=== PATIENT | female | born 1945 | race Caucasian/White ===

== ENCOUNTER 2017-09-23 18:59 | Inpatient (IN) ==
[2017-09-23] MEDS ORDERED: Ipratropium/Albuterol Neb 3 ML ONE (19:03)
[2017-09-23 19:17] LABS: ABG Base Excess 4 mEq/L (-2 to 3); ABG HCO3 34 mEq/L (21-27); ABG Oxygen Saturation 88 % (95-98); ABG PCO2 70 mmHg (35-45); ABG PO2 62 mmHg (85-104); ABG TCO2 36 mEq/L (20-26)
[2017-09-23] MEDS ORDERED: methylPREDNISolone 125 MG/2 ML VIAL IVP ONE (19:17)
--- NOTE | 2017-09-23 19:29 | Emergency Department Note ---
Disposition Clinical Impression: Pulmonary nodule, Hypoxia, COPD exacerbation Right lower lobe pneumonia Qualifiers: Pneumonia type: due to unspecified organism Qualified Code(s): J18.1 - Lobar pneumonia, unspecified organism Disposition: Admitted As Inpatient Condition: Good General Adult HPI - General Chief complaint: ED Shortness of Breath/Dyspnea Stated complaint: shortness of breath and nausea Time Seen by Provider: 09/23/17 19:17 Source: patient, EMS Mode of arrival: EMS Limitations: no limitations Nursing Notes Reviewed: Yes Vital Signs Reviewed: Yes - History of Present Illness HPI Narrative: 71 y/o female w/ PMH of COPD, HTN, HLD. Reports ERNESTO over the last week. Also reports fatigue and cough. This all began with URI type symptoms. She does report a hx of COPD but does not require O2. She admits to a cough but no LE edema. She denies chest pain. No fever. No hx of DVT/PE. No hemoptysis. No estrogen supplementation. No abdominal pain. Complains of generalized fatigue. Worse with exertion. Pain Scale: 0 Improves with: nothing Worsens with: movement Associated symptoms: Reports: denies other symptoms Treatments Prior to Arrival: none - Related Data Home Medications Medication Instructions Recorded Confirmed Albuterol Sulfate [Albuterol 2 puff IH Q4H PRN 09/23/17 09/23/17 Inhaler] Aspirin 325 mg PO DAILY 09/23/17 09/23/17 Atorvastatin [Lipitor] 40 mg PO HS 09/23/17 09/23/17 Budesonide/Formoterol 160/4.5 2 puff IH BIDR 09/23/17 09/23/17 [Symbicort 160/4.5] Furosemide [Lasix] 20 mg PO DAILY 09/23/17 09/23/17 Levothyroxine Sodium 175 mcg PO QAM 09/23/17 09/23/17 Lisinopril [Zestril] 5 mg PO BID 09/23/17 09/23/17 Metoprolol [Lopressor] 25 mg PO BID 09/23/17 09/23/17 Allergies Allergy/AdvReac Type Severity Reaction Status Date / Time No Known Allergies Allergy Verified 09/23/17 19:12 All systems ED: reviewed and negative except as stated. Constitutional: Denies: fever ENT ED: Denies: throat pain Cardiovascular: Denies: chest pain Respiratory: Reports: cough, dyspnea Gastrointestinal: Denies: abdominal pain, nausea, vomiting, diarrhea Integumentary: Denies: rash Endocrine: Reports: fatigue Past Medical History - Past Medical History Medical history: Reports: COPD, myocardial infarction Psychiatric history: Reports: no psych history - Social History Smoking Status: Current every day smoker Smokeless Tobacco Status: No Alcohol use: Reports: none Drug use: Reports: none Physical Exam - General Limitations: no limitations General appearance: alert, in no apparent distress - Head Head exam: atraumatic - Eye Eye exam: Present: normal appearance, PERRL - ENT ENT exam: normal exam, normal oropharynx - Neck Neck exam: Present: normal inspection - Chest Chest inspection: Present: normal inspection - Respiratory Respiratory exam: Present: other (poor air movement with expiratory wheezes.). Absent: accessory muscle use - Cardiovascular Cardiovascular exam: Present: regular rate, normal rhythm - Abdominal Exam Abdominal exam: Present: soft, Non-Tender - Extremities Exam Extremities exam: Present: normal inspection - Neurological Exam Neurological exam: Present: alert, oriented X3 - Skin Skin exam: Present: warm, dry Course Course Narrative: She does not require O2 at home. Requiring 4L NC currently. Symptoms consistent with COPD exacerbation, however cannot exclude PE without CTA. Will give duonebs/steroids. She feels much better after steroids/duoneb. Pneumonia seen on CT scan. STarted abx and will admit. Hypoxia on room air but improves on nasal canula. Vital Signs Temperature 98.2 F 09/23/17 19:02 Pulse Rate 72 09/23/17 19:02 Respiratory Rate 20 09/23/17 19:02 Blood Pressure 121/67 09/23/17 19:02 O2 Sat by Pulse Oximetry 88 09/23/17 19:02 Temperature 98.8 F 09/24/17 04:00 Pulse Rate 89 09/24/17 04:00 Respiratory Rate 19 09/24/17 04:00 Blood Pressure 93/36 09/24/17 04:00 O2 Sat by Pulse Oximetry 93 09/24/17 04:00 Oxygen Delivery Oxygen Delivery Nasal Cannula Medical Decision Making - Medical Records Medical records reviewed: Yes I reviewed the patient's medical records. - Lab Data Lab results reviewed: Yes I reviewed the patient's lab results. Result diagrams: 09/24/17 04:09 09/23/17 19:55 Lab Results 09/23/17 09/23/17 09/23/17 Range/Units 19:10 19:55 19:55 WBC 5.7 (4.3-11.1) K/mcL RBC 5.34 H (3.82-4.97) M/mcL Hgb 16.7 H (11.5-15.4) g/dL Hct 53.6 H (35.3-44.9) % MCV 100.4 H (83.0-100.0) fL MCH 31.3 (28.0-33.3) pg MCHC 31.2 L (31.6-35.5) g/dL RDW 13.7 (11.5-14.5) % Plt Count 115 L (140-400) K/mcL MPV 11.1 (9.4-12.4) fL Immature Gran % 0.4 (0-4) % Seg Neutrophils % 71.8 % Lymphocytes % 18.2 % Monocytes % 9.1 % Eosinophils % 0.0 % Basophils % 0.5 % Neutrophils # 4.1 (1.6-8.9) K/mcL Lymphocytes # 1.0 (0.6-4.6) K/mcL Monocytes # 0.5 (0.0-1.3) K/mcL Eosinophils # 0.0 (0.0-0.6) K/mcL Basophils # 0.0 (0.0-0.2) K/mcL ABG pH 7.30 L (7.32-7.45) pH Units ABG pCO2 70 H* (35-45) mmHg ABG pO2 62 L (85-104) mmHg ABG HCO3 34 H (21-27) mEq/L ABG Total CO2 36 H (20-26) mEq/L ABG O2 Saturation 88 L (95-98) % ABG Base Excess 4 H (-2 to 3) mEq/L Sodium 138 (136-145) mEq/L Potassium 4.2 (3.5-5.1) mEq/L Chloride 101 (98-107) mEq/L Carbon Dioxide 33 H (23-29) mEq/L BUN 22 (8-23) mg/dL Creatinine 0.97 (0.60-1.20) mg/dL Est GFR ( Amer) > 60 (> 60) Est GFR (Non-Af Amer) 57 L (> 60) BUN/Creatinine Ratio 23 (6-26) Glucose 120 H (70-105) mg/dL Calculated Osmolality 291 (280-300) Lactic Acid (0.5-2.2) mmol/L Calcium 8.8 (8.6-10.3) mg/dL Troponin I (< 0.04) ng/mL B-Natriuretic Peptide (Less than 100) pg/mL 09/23/17 09/23/17 09/23/17 Range/Units 19:55 19:55 19:55 WBC (4.3-11.1) K/mcL RBC (3.82-4.97) M/mcL Hgb (11.5-15.4) g/dL Hct (35.3-44.9) % MCV (83.0-100.0) fL MCH (28.0-33.3) pg MCHC (31.6-35.5) g/dL RDW (11.5-14.5) % Plt Count (140-400) K/mcL MPV (9.4-12.4) fL Immature Gran % (0-4) % Seg Neutrophils % % Lymphocytes % % Monocytes % % Eosinophils % % Basophils % % Neutrophils # (1.6-8.9) K/mcL Lymphocytes # (0.6-4.6) K/mcL Monocytes # (0.0-1.3) K/mcL Eosinophils # (0.0-0.6) K/mcL Basophils # (0.0-0.2) K/mcL ABG pH (7.32-7.45) pH Units ABG pCO2 (35-45) mmHg ABG pO2 (85-104) mmHg ABG HCO3 (21-27) mEq/L ABG Total CO2 (20-26) mEq/L ABG O2 Saturation (95-98) % ABG Base Excess (-2 to 3) mEq/L Sodium (136-145) mEq/L Potassium (3.5-5.1) mEq/L Chloride (98-107) mEq/L Carbon Dioxide (23-29) mEq/L BUN (8-23) mg/dL Creatinine (0.60-1.20) mg/dL Est GFR ( Amer) (> 60) Est GFR (Non-Af Amer) (> 60) BUN/Creatinine Ratio (6-26) Glucose (70-105) mg/dL Calculated Osmolality (280-300) Lactic Acid 1.2 (0.5-2.2) mmol/L Calcium (8.6-10.3) mg/dL Troponin I < 0.03 (< 0.04) ng/mL B-Natriuretic Peptide 28 (Less than 100) pg/mL - Radiology Data Radiology results reviewed: Yes I reviewed the patient's radiology results. - EKG Data EKG #1 EKG attestation: Yes I reviewed and interpreted this EKG. EKG shows normal: sinus rhythm Rate: normal Rhythm: NSR [place]/QRS: normal Interpretation: no acute changes Attestation Statement - Attestation Attestation: I, Jarek Sneed, examined this patient and my medical decision-making was reviewed with the DOCK COORDINATOR/PA/Advanced Practice Nurse/Resident Physician. I agree with the documented findings, disposition and treatment plan as described except to the extent set forth below. 71-year-old female who presents to emergency department with concerns of shortness of breath. Patient states she has had increasing symptoms over the past week. Patient satting 75% on initial evaluation with significant wheezing in the bilateral posterior lung walker.. Patient O2 saturations improved with DuoNeb. Patient had a CTA of the chest shows right lower lobe and right middle lobe pneumonia. Patient started on community-acquired antibiotics and admitted to the hospital for continuation of care.
[2017-09-23 20:06] LABS: Basophils % 0.5 %; Hematocrit 53.6 % (35.3-44.9); Hemoglobin 16.7 g/dL (11.5-15.4); Immature Granulocytes % 0.4 % (0-4); Lymphocytes % 18.2 %; Mean Corpuscular HGB Conc 31.2 g/dL (31.6-35.5); Mean Corpuscular Hemoglobin 31.3 pg (28.0-33.3); Mean Corpuscular Volume 100.4 fL (83.0-100.0); Mean Platelet Volume 11.1 fL (9.4-12.4); Monocytes # 0.5 K/mcL (0.0-1.3); Monocytes % 9.1 %; Neutrophils # 4.1 K/mcL (1.6-8.9); Platelet Count 115 K/mcL (140-400); Red Blood Count 5.34 M/mcL (3.82-4.97); Red Cell Distribution Width 13.7 % (11.5-14.5); Segmented Neutrophils % 71.8 %
[2017-09-23 20:18] LABS: BUN/Creatinine Ratio 23 (6-26); Blood Urea Nitrogen 22 mg/dL (8-23); Calcium 8.8 mg/dL (8.6-10.3); Carbon Dioxide 33 mEq/L (23-29); Chloride 101 mEq/L (98-107); Glucose 120 mg/dL (70-105); Osmolality,Calculated 291 (280-300); Potassium 4.2 mEq/L (3.5-5.1); Sodium 138 mEq/L (136-145); eGFR For African Americans > 60 (> 60); eGFR For Non-African Americans 57 (> 60)
[2017-09-23] MEDS ORDERED: Albuterol 2.5 MG/3 ML NEBULIZER IH ONE (20:28)
[2017-09-23] MEDS ORDERED: Acetaminophen 325 MG TABLET PO ONE (20:29)
[2017-09-23] MEDS ORDERED: Ondansetron 4 MG/2 ML VIAL ONE (20:50)
[2017-09-23] MEDS ORDERED: Ondansetron 4 MG/2 ML VIAL IVP ONE (20:51)
[2017-09-23] MEDS ORDERED: levoFLOXacin 750 MG TABLET PO ONE (21:05)
[2017-09-23] MEDS ORDERED: Ipratropium/Albuterol Neb 3 ML IH ONE (21:20)
[2017-09-23] MEDS ORDERED: Levofloxacin 750 MG/150 ML 750 MG/150 ML BAG IVPB STA (21:20)
[2017-09-23] MEDS ORDERED: Naloxone 0.4 MG/ML INJ IVP PRN (21:32)
[2017-09-23] MEDS ORDERED: Ipratropium/Albuterol Neb 3 ML IH PRN (21:34)
--- NOTE | 2017-09-23 21:38 | Internal Med History&Physical ---
Date of Encounter: 09/23/17 Time of Encounter: 21:36 Assessment and Plan (1) Hypoxia Current visit: Yes Status: Acute 2/2 COPD and PNA below (2) COPD exacerbation Current visit: Yes Status: Acute IV steroids, IV antibiotics, Duonebs pulse ox (3) Right lower lobe pneumonia Current visit: Yes Status: Acute plan as above add serologies IVF hold home lasix 20mg while getting IVF overnight Qualifiers: Pneumonia type: due to unspecified organism Qualified Code(s): J18.1 - Lobar pneumonia, unspecified organism (4) Pulmonary nodule Current visit: Yes Status: Acute outpatient surveillance follow up (5) Hypothyroid Current visit: Yes Status: Acute Qualifiers: Hypothyroidism type: acquired Qualified Code(s): E03.9 - Hypothyroidism, unspecified (6) HTN (hypertension) Current visit: Yes Status: Acute Qualifiers: Hypertension type: essential hypertension Qualified Code(s): I10 - Essential (primary) hypertension Internal Medicine - H&P: HPI Chief complaint: SOB History of present illness: Ms. Romo is a 71 year old female with hx of COPD who presents with hypoxia. Found COPD flare and PNA. She smokes 1/2 PPD and denies nicotine patch when offered. She is on RA at baseline. Symptoms developed on wednesday with progressive cough, productive of clear sputum. Associated fever/chills and SOB. SOB worse on exertion around her house. SOB improve with rest. Symptoms not better over the last few days leading to presentation to the hospital from home EKG personally reviewed with rate 77, NSR XR/XR chest 1V portable IMPRESSION: No acute process. CT/CT angio chest IMPRESSION: No evidence of pulmonary embolus. Patchy airspace disease peripherally in the right lower lobe and right middle lobe. Names concerning for infection. Mildly enlarged right hilar lymph nodes, likely reactive. A few scattered pulmonary nodules measuring up to 5 mm. Recommend follow-up in 6-12 months. Past Med Surg Social Fam HX - Past Medical History Medical history: COPD, myocardial infarction Psychiatric history: no psych history - Past Surgical History Surgical History: no surgical history, non-contributory - Social History Smoking Status: Current every day smoker Smokeless Tobacco Status: No Alcohol use: none Drug use: none - Additional Family History Additional family history: HTN Internal Medicine - H&P: Meds Albuterol Sulfate [Albuterol Inhaler] 2 puff IH Q4H PRN 09/23/17 [History] Aspirin 325 mg PO DAILY 09/23/17 [History] Atorvastatin [Lipitor] 40 mg PO HS 09/23/17 [History] Budesonide/Formoterol 160/4.5 [Symbicort 160/4.5] 2 puff IH BIDR 09/23/17 [ History] Furosemide [Lasix] 20 mg PO DAILY 09/23/17 [History] Levothyroxine Sodium 175 mcg PO QAM 09/23/17 [History] Lisinopril [Zestril] 5 mg PO BID 09/23/17 [History] Metoprolol [Lopressor] 25 mg PO BID 09/23/17 [History] 3 Allergy/AdvReac Type Severity Reaction Status Date / Time No Known Allergies Allergy Verified 09/23/17 19:12 All Systems PM: A 10-system review of systems was performed and is negative for pertinent findings except as documented above in the HPI. Review of systems: ROS 14 point review of systems reviewed as best as possible given presentation. Pertinent positive or negative as per HPI or otherwise reviewed as negative - Constitutional Vitals: Temp Pulse Resp BP Pulse Ox 98.2 F 82 16 113/68 92 09/23/17 19:02 09/23/17 19:49 09/23/17 19:49 09/23/17 19:49 09/23/17 19:49 Exam: General - AAO x 3 Psych - Appropriate affect/speech. No agitation Eyes - VICKEY. Eye lids intact. No scleral icterus Neuro - No gross peripheral or central neuro deficits on inspection Heart - Sinus. RRR. S1 and S2 present. No added HS/murmurs appreciated. No elevated JVD appreciated. Lung - Decreased air entry b/l, Bibasal crackles. Diffuse wheezes appreciated GI - Soft, non-tender. No hepatosplenomegaly/ascites. BS+ - No CVA/suprapubic tenderness or palpable bladder distension Skin - Intact. No rash/petechiae/ecchymosis. Warm extremities Internal Med - H&P Results - Labs CBC & Chem 7: 09/23/17 19:55 09/23/17 19:55 Labs: Short CBC 09/23/17 Range/Units 19:55 WBC 5.7 (4.3-11.1) K/mcL Hgb 16.7 H (11.5-15.4) g/dL Hct 53.6 H (35.3-44.9) % Plt Count 115 L (140-400) K/mcL Neutrophils # 4.1 (1.6-8.9) K/mcL BMP 09/23/17 19:55 Sodium 138 Potassium 4.2 Chloride 101 Carbon Dioxide 33 H BUN 22 Creatinine 0.97 Glucose 120 H Calcium 8.8 Cardiac Enzymes 09/23/17 Range/Units 19:55 Troponin I < 0.03 (< 0.04) ng/mL - ABG Interpretation ABG results: 09/23/17 19:10 ABG pH 7.30 L ABG pCO2 70 H* ABG pO2 62 L ABG HCO3 34 H ABG Total CO2 36 H ABG O2 Saturation 88 L ABG Base Excess 4 H - Impressions ITS Impressions Chest CTA 09/23/17 19:17 IMPRESSION: No evidence of pulmonary embolus. Patchy airspace disease peripherally in the right lower lobe and right middle lobe. Names concerning for infection. Mildly enlarged right hilar lymph nodes, likely reactive. A few scattered pulmonary nodules measuring up to 5 mm. Recommend follow-up in 6-12 months. D/ / Marita eBnitez MD / Marita Benitez MD Interpreting Provider: Marita Benitez MD Chest X-Ray 09/23/17 19:17 IMPRESSION: No acute process. D/ / Keny Gonzalez MD / Keny Gonzalez MD Interpreting Provider: Keny Gonzalez MD
[2017-09-23] MEDS: 0.9 % Sodium Chloride 1,000 ML IVC SCH (23:25)
[2017-09-24] MEDS: Budesonide/Formoterol 160/4.5 MDI IH SCH ×3 (01:03→22:12)
[2017-09-24 04:24] LABS: Basophils % 0.2 %; Hematocrit 51.7 % (35.3-44.9); Hemoglobin 15.5 g/dL (11.5-15.4); Immature Granulocytes % 0.7 % (0-4); Lymphocytes # 0.3 K/mcL (0.6-4.6); Lymphocytes % 7.4 %; Mean Corpuscular Hemoglobin 30.8 pg (28.0-33.3); Mean Corpuscular Volume 102.6 fL (83.0-100.0); Mean Platelet Volume 10.9 fL (9.4-12.4); Monocytes # 0.1 K/mcL (0.0-1.3); Monocytes % 1.6 %; Neutrophils # 3.9 K/mcL (1.6-8.9); Platelet Count 110 K/mcL (140-400); Red Blood Count 5.04 M/mcL (3.82-4.97); Red Cell Distribution Width 13.8 % (11.5-14.5); Segmented Neutrophils % 90.1 %
[2017-09-24] MEDS: Ipratropium/Albuterol Neb 3 ML IH SCH ×4 (04:28→22:12)
[2017-09-24 04:47] LABS: Calcium 8.3 mg/dL (8.6-10.3); Potassium 4.2 mEq/L (3.5-5.1)
[2017-09-24] MEDS: *HR* Enoxaparin 40 MG/0.4 ML SYRINGE SQ SCH (06:01)
[2017-09-24] MEDS: MethylPREDNISolone 40 MG/ML VIAL IVP SCH ×4 (06:01→21:08)
[2017-09-24] MEDS ORDERED: Aspirin 325 MG TABLET PO ONE (09:00)
--- NOTE | 2017-09-24 09:23 | Internal Med Progress Note ---
<SharifMessi - Last Filed: 09/24/17 13:52> Date of Encounter: 09/24/17 Time of Encounter: 09:21 - Assessment and plan (1) Acute respiratory failure Current Visit: Yes Status: Acute Assessment and plan: Likely secondary to COPD Exacerbation and right sided PNA Will continue patient on Levaquin, steroid taper, breathing treatments, and BiPAP as needed May qualify her for oxygen prior to discharge Qualifiers: Qualified Code(s): J96.00 - Acute respiratory failure, unspecified whether with hypoxia or hypercapnia (2) COPD exacerbation Current Visit: Yes Status: Acute Assessment and plan: Monitor O2 sats - IV steroids - IV levaquin day 2 - Duonebs (3) Right lower lobe pneumonia Current Visit: Yes Status: Acute Assessment and plan: Plan as above - IV Fluids - Serologies ordered - Hold home Lasix while getting IVF in setting of FABIOLA Qualifiers: Pneumonia type: due to unspecified organism Qualified Code(s): J18.1 - Lobar pneumonia, unspecified organism (4) FABIOLA (acute kidney injury) Current Visit: Yes Status: Acute Assessment and plan: Cr did increase to 1.35 from 0.9 after receiving contrast after CTA Will hydrate overnight and monitor kidney function and electrolytes (5) Pulmonary nodule Current Visit: Yes Status: Chronic Assessment and plan: Discovered on CTA, radiologist recommended outpatient surveillance follow up in 6-12 months (6) Hypothyroid Current Visit: Yes Status: Chronic Assessment and plan: Continue home synthroid Qualifiers: Hypothyroidism type: acquired Qualified Code(s): E03.9 - Hypothyroidism, unspecified (7) HTN (hypertension) Current Visit: Yes Status: Chronic Assessment and plan: Holding home Lisinopril in setting of FABIOLA Blood pressures stable Qualifiers: Hypertension type: essential hypertension Qualified Code(s): I10 - Essential (primary) hypertension (8) DVT prophylaxis Current Visit: Yes Status: Acute Assessment and plan: Lovenox SQ - Subjective Interval history: Patient seen and examined at bedside. Patient is resting in bed. Nurse states that she was on bipap throughout the night, and is now sating 77%-89% on 8L high flow O2 by nasal cannula. Patient states that she feels short of breath, but better than she did yesterday. She states that if she attempts to stand, that she feels weak and wobbly. She is comfortable when she is laying in bed. - Constitutional Vitals: Temp Pulse Resp BP Pulse Ox 98.8 F 89 16 93/36 92 09/24/17 04:00 09/24/17 04:00 09/24/17 04:28 09/24/17 04:00 09/24/17 04:28 General appearance: Present: A&O X 3, pleasant, obese, answers questions appropriately - Head Head exam: Present: normal inspection - Eye Eye exam: Present: normal appearance - Neck Neck exam general surgery: Present: normal inspection - Respiratory Respiratory exam: Present: rhonchi, wheezes - Cardiovascular Cardiovascular exam: Present: RRR - GI/Abdominal GI/Abdominal exam: Present: soft, no peritoneal signs. Absent: distended, firm , guarding, tenderness - Skin Skin exam: Present: dry, intact, normal color, warm Internal Medicine: Result - Labs CBC & Chem 7: 09/24/17 04:09 09/24/17 04:09 Labs: Short CBC 09/24/17 Range/Units 04:09 WBC 4.3 (4.3-11.1) K/mcL Hgb 15.5 H (11.5-15.4) g/dL Hct 51.7 H (35.3-44.9) % Plt Count 110 L (140-400) K/mcL Neutrophils # 3.9 (1.6-8.9) K/mcL BMP 09/24/17 04:09 Sodium 138 Potassium 4.2 Chloride 102 Carbon Dioxide 32 H BUN 25 H Creatinine 1.35 H Glucose 181 H Calcium 8.3 L - ABG Interpretation ABG results: ABG ABG pH 7.30 pH Units (7.32-7.45) L 09/23/17 19:10 ABG pCO2 70 mmHg (35-45) H* 09/23/17 19:10 ABG pO2 62 mmHg (85-104) L 09/23/17 19:10 ABG O2 Saturation 88 % (95-98) L 09/23/17 19:10 Consult Discharge Plan - Plan Referrals: Soham Wheeler Jr, MD [Primary Care Provider] - <Donnie Hancock - Last Filed: 09/24/17 14:26> Date of Encounter: 09/24/17 - Constitutional Vitals: Temp Pulse Resp BP Pulse Ox 98.0 F 73 20 105/58 97 09/24/17 12:30 09/24/17 12:30 09/24/17 12:30 09/24/17 08:30 09/24/17 12:30 Internal Medicine: Result - Labs CBC & Chem 7: 09/24/17 04:09 09/24/17 04:09 Labs: Short CBC 09/24/17 Range/Units 04:09 WBC 4.3 (4.3-11.1) K/mcL Hgb 15.5 H (11.5-15.4) g/dL Hct 51.7 H (35.3-44.9) % Plt Count 110 L (140-400) K/mcL Neutrophils # 3.9 (1.6-8.9) K/mcL BMP 09/24/17 04:09 Sodium 138 Potassium 4.2 Chloride 102 Carbon Dioxide 32 H BUN 25 H Creatinine 1.35 H Glucose 181 H Calcium 8.3 L - ABG Interpretation ABG results: ABG ABG pH 7.30 pH Units (7.32-7.45) L 09/23/17 19:10 ABG pCO2 70 mmHg (35-45) H* 09/23/17 19:10 ABG pO2 62 mmHg (85-104) L 09/23/17 19:10 ABG O2 Saturation 88 % (95-98) L 09/23/17 19:10 - Attending Attestation I personally interviewed and examined this patient. I reviewed all labs and studies. I agree with the findings, assessment, and plan of Dr. Sharif, internal medicine resident patient continues on BiPAP. She is currently on Levaquin for community acquired pneumonia as well as Tamiflu for influenza infection. She appears much more comfortable today was still has a significant action requirement. We will continue with pulmonary toilet measures. Her pneumonias in the right lower lobe but she does not give any risk factors for aspiration. Continue with IV fluids for mild renal insufficiency and probable hypovolemia. All else as outlined.
[2017-09-24 10:07] LABS: Adenovirus Not Detected (Not Detect); Bordetella Pertussis Not Detected (Not Detect); Chlamydophila pneumoniae Not Detected (Not Detect); Coronavirus 229E Not Detected (Not Detect); Coronavirus NL63 Not Detected (Not Detect); Coronavirus OC43 Not Detected (Not Detect); Human Metapneumovirus Not Detected (Not Detect); Human Rhinovirus/Enterovirus Not Detected (Not Detect); Influenza A Subtype 2009 H1 ***DETECTED*** (Not Detect); Influenza A Untypeable Not Detected (Not Detect); Influenza B Not Detected (Not Detect); Mycoplasma pneumoniae Not Detected (Not Detect); Parainfluenza Virus 1 Not Detected (Not Detect); Parainfluenza Virus 2 Not Detected (Not Detect); Parainfluenza Virus 3 Not Detected (Not Detect); Parainfluenza Virus 4 Not Detected (Not Detect); Respiratory Syncytial Virus Not Detected (Not Detect)
[2017-09-24] MEDS: 0.9 % Sodium Chloride 1,000 ML IVC SCH (10:32)
[2017-09-24] MEDS ORDERED: Levofloxacin 500 MG/100 ML 500 MG/100 ML BAG IVPB SCH (21:00)
[2017-09-24] MEDS ORDERED: Oseltamivir Phosphate 30 MG CAPSULE PO SCH (21:00)
[2017-09-25] MEDS: Ipratropium/Albuterol Neb 3 ML IH SCH ×5 (04:03→23:13)
[2017-09-25] MEDS: MethylPREDNISolone 40 MG/ML VIAL IVP SCH ×2 (05:15→18:28)
[2017-09-25 06:39] LABS: Basophils % 0.1 %; Hemoglobin 15.8 g/dL (11.5-15.4); Immature Granulocytes % 0.6 % (0-4); Lymphocytes # 0.8 K/mcL (0.6-4.6); Lymphocytes % 8.3 %; Mean Corpuscular Hemoglobin 31.7 pg (28.0-33.3); Mean Corpuscular Volume 102.2 fL (83.0-100.0); Mean Platelet Volume 11.4 fL (9.4-12.4); Monocytes # 0.7 K/mcL (0.0-1.3); Monocytes % 7.2 %; Neutrophils # 7.8 K/mcL (1.6-8.9); Platelet Count 109 K/mcL (140-400); Red Blood Count 4.99 M/mcL (3.82-4.97); Red Cell Distribution Width 13.6 % (11.5-14.5); Segmented Neutrophils % 83.8 %
[2017-09-25] MEDS: *HR* Enoxaparin 40 MG/0.4 ML SYRINGE SQ SCH (06:46)
[2017-09-25 07:07] LABS: BUN/Creatinine Ratio 30 (6-26); Blood Urea Nitrogen 26 mg/dL (8-23); Calcium 9.1 mg/dL (8.6-10.3); Carbon Dioxide 37 mEq/L (23-29); Chloride 104 mEq/L (98-107); Glucose 135 mg/dL (70-105); Osmolality,Calculated 295 (280-300); Potassium 5.2 mEq/L (3.5-5.1); Sodium 139 mEq/L (136-145); eGFR For African Americans > 60 (> 60); eGFR For Non-African Americans > 60 (> 60)
[2017-09-25 07:20] LABS: Coronavirus HKU1 Not Detected (Not Detect)
[2017-09-25] MEDS ORDERED: Oseltamivir Phosphate 30 MG CAPSULE PO SCH (08:19)
--- NOTE | 2017-09-25 09:17 | Internal Med Progress Note ---
<Messi Sharif - Last Filed: 09/25/17 11:46> Date of Encounter: 09/25/17 Time of Encounter: 09:16 - Assessment and plan (1) Acute respiratory failure Current Visit: Yes Status: Acute Assessment and plan: Likely secondary to COPD Exacerbation and right sided PNA; still requiring 10 L Will continue patient on Levaquin, steroid taper, breathing treatments, and BiPAP as needed May qualify her for oxygen prior to discharge Give one dose of Lasix 40 IV as she may have fluid contributing to her SOB Obtain echocardiogram to rule out CHF as she does not have one in our system Qualifiers: Respiratory failure complication: hypercapnia Qualified Code(s): J96.02 - Acute respiratory failure with hypercapnia (2) COPD exacerbation Current Visit: Yes Status: Acute Assessment and plan: Monitor O2 sats - IV steroids - IV levaquin day 3 - Duonebs (3) Right lower lobe pneumonia Current Visit: Yes Status: Acute Assessment and plan: She denies history of aspiration Continue on Levaquin as above Serologies ordered Qualifiers: Pneumonia type: due to unspecified organism Qualified Code(s): J18.1 - Lobar pneumonia, unspecified organism (4) FABIOLA (acute kidney injury) Current Visit: Yes Status: Acute Assessment and plan: Resolved, as Cr did go down to .88 from 1.3 Will continue to monitor kidney function and electrolytes (5) Pulmonary nodule Current Visit: Yes Status: Chronic Assessment and plan: Discovered on CTA, radiologist recommended outpatient surveillance follow up in 6-12 months (6) Hypothyroid Current Visit: Yes Status: Chronic Assessment and plan: Continue home synthroid Qualifiers: Hypothyroidism type: acquired Qualified Code(s): E03.9 - Hypothyroidism, unspecified (7) HTN (hypertension) Current Visit: Yes Status: Chronic Assessment and plan: Holding home Lisinopril in setting of recent FABIOLA Blood pressures stable Qualifiers: Hypertension type: essential hypertension Qualified Code(s): I10 - Essential (primary) hypertension (8) DVT prophylaxis Current Visit: Yes Status: Acute Assessment and plan: Lovenox SQ - Subjective Interval history: Patient seen and examined at bedside. She states she is breathing better this morning and denies any pain. She did complain of some nausea and vomiting after being given Lovenox injections last night but denies any blood. Has no issues with fever, diarrhea, chills. - Constitutional Vitals: Temp Pulse Resp BP Pulse Ox 98.2 F 87 18 119/65 94 09/25/17 07:16 09/25/17 07:16 09/25/17 07:16 09/25/17 07:16 09/25/17 07:16 General appearance: Present: A&O X 3, pleasant, obese, answers questions appropriately - Head Head exam: Present: atraumatic, normocephalic - Eye Eye exam: Present: PERRL, conjuntiva pink, sclera anicteric - Neck Neck exam general surgery: Present: supple, trachea midline. Absent: lymphadenopathy - Respiratory Respiratory exam: Present: rhonchi. Absent: accessory muscle use, rales, wheezes - Cardiovascular Cardiovascular exam: Present: RRR, +S1, +S2. Absent: diastolic murmur, gallop, rubs, systolic murmur - GI/Abdominal GI/Abdominal exam: Present: normal bowel sounds, soft, no peritoneal signs. Absent: distended, tenderness - Extremities Exam Extremities exam: Present: warm, radial pulses palpable and symmetrical. Absent : calf tenderness, cyanotic, pedal edema - Neurological Exam Neurological exam: Present: alert, no focal deficits. Absent: facial droop, speech deficit - Skin Skin exam: Present: dry, intact Internal Medicine: Result - Labs CBC & Chem 7: 09/25/17 06:24 09/25/17 06:24 Labs: Short CBC 09/25/17 Range/Units 06:24 WBC 9.3 D (4.3-11.1) K/mcL Hgb 15.8 H (11.5-15.4) g/dL Hct 51.0 H (35.3-44.9) % Plt Count 109 L (140-400) K/mcL Neutrophils # 7.8 (1.6-8.9) K/mcL BMP 09/25/17 06:24 Sodium 139 Potassium 5.2 H Chloride 104 Carbon Dioxide 37 H BUN 26 H Creatinine 0.88 Glucose 135 H Calcium 9.1 - ABG Interpretation ABG results: ABG ABG pH 7.30 pH Units (7.32-7.45) L 09/23/17 19:10 ABG pCO2 70 mmHg (35-45) H* 09/23/17 19:10 ABG pO2 62 mmHg (85-104) L 09/23/17 19:10 ABG O2 Saturation 88 % (95-98) L 09/23/17 19:10 Consult Discharge Plan - Plan Referrals: Soham Wheeler Jr, MD [Primary Care Provider] - <Donnie Hancock Lavinia - Last Filed: 09/25/17 14:32> Date of Encounter: 09/25/17 - Constitutional Vitals: Temp Pulse Resp BP Pulse Ox 97.8 F 99 18 108/66 94 09/25/17 11:37 09/25/17 11:37 09/25/17 11:37 09/25/17 11:37 09/25/17 11:37 Internal Medicine: Result - Labs CBC & Chem 7: 09/25/17 06:24 09/25/17 06:24 Labs: Short CBC 09/25/17 Range/Units 06:24 WBC 9.3 D (4.3-11.1) K/mcL Hgb 15.8 H (11.5-15.4) g/dL Hct 51.0 H (35.3-44.9) % Plt Count 109 L (140-400) K/mcL Neutrophils # 7.8 (1.6-8.9) K/mcL BMP 09/25/17 06:24 Sodium 139 Potassium 5.2 H Chloride 104 Carbon Dioxide 37 H BUN 26 H Creatinine 0.88 Glucose 135 H Calcium 9.1 - ABG Interpretation ABG results: ABG ABG pH 7.30 pH Units (7.32-7.45) L 09/23/17 19:10 ABG pCO2 70 mmHg (35-45) H* 09/23/17 19:10 ABG pO2 62 mmHg (85-104) L 09/23/17 19:10 ABG O2 Saturation 88 % (95-98) L 09/23/17 19:10 - Attending Attestation I personally interviewed and examined this patient. I agree with the findings, assessment, and plan of Dr. Sharif, internal medicine resident. Patient continues on Levaquin for pneumonia as well as Tamiflu for influenza. Despite this she continues to have very high actually demands. Despite having a low BNP , will try Lasix IV to see if this improves her oxygenation. We will also check an echo. The tenuous supportive care. Despite her I oxygen demand, she otherwise remains fairly comfortable and he was dynamically stable. Will likely need a repeat chest x-ray in morning, if she does not improve.
[2017-09-25] MEDS: Levofloxacin 750 MG/150 ML 750 MG/150 ML BAG IVPB SCH (10:06)
--- NOTE | 2017-09-25 10:18 | Electrocardiograph Report ---
[place] [id number] Test Date: 2017-09-23 Pat Name: Jonnie Romo Department: 104 Room: 2N8 Gender: F [employer]: : [id number] Requested By: Alex Wilkinson Order Number: [id number] Reading MD: Aysha Serrano Measurements Intervals [place] Rate: 77 P: 69 MA: 155 QRS: 44 QRSD: 93 T: 52 QT: 332 QTc: 364 Interpretive Statements SINUS RHYTHM Electronically Signed On 09-25-2017 10:17:01 EST by Aysha Serrano
[2017-09-25] MEDS ORDERED: Furosemide 40 MG/4 ML VIAL IVP ONE (10:52)
[2017-09-25] MEDS: Budesonide/Formoterol 160/4.5 MDI IH SCH ×2 (11:15→23:12)
[2017-09-25] MEDS: *HR* HYDROcodone/Acet 5/325 mg TABLET PO PRN (13:21)
[2017-09-25] MEDS: Ondansetron ODT 4 MG TAB.RAPDIS SL PRN (16:19)
[2017-09-26 04:08] LABS: BUN/Creatinine Ratio 29 (6-26); Blood Urea Nitrogen 23 mg/dL (8-23); Carbon Dioxide 39 mEq/L (23-29); Chloride 101 mEq/L (98-107); Glucose 130 mg/dL (70-105); Osmolality,Calculated 295 (280-300); Potassium 4.8 mEq/L (3.5-5.1); Sodium 140 mEq/L (136-145); eGFR For African Americans > 60 (> 60); eGFR For Non-African Americans > 60 (> 60)
[2017-09-26] MEDS: Ipratropium/Albuterol Neb 3 ML IH SCH ×6 (04:18→23:18)
[2017-09-26 04:21] LABS: Basophils % 0.1 %; Hematocrit 49.9 % (35.3-44.9); Hemoglobin 15.2 g/dL (11.5-15.4); Immature Granulocytes % 0.8 % (0-4); Lymphocytes # 0.6 K/mcL (0.6-4.6); Lymphocytes % 6.2 %; Mean Corpuscular HGB Conc 30.5 g/dL (31.6-35.5); Mean Corpuscular Hemoglobin 31.1 pg (28.0-33.3); Mean Corpuscular Volume 102.3 fL (83.0-100.0); Mean Platelet Volume 11.6 fL (9.4-12.4); Monocytes # 0.6 K/mcL (0.0-1.3); Monocytes % 6.7 %; Neutrophils # 7.8 K/mcL (1.6-8.9); Platelet Count 119 K/mcL (140-400); Red Blood Count 4.88 M/mcL (3.82-4.97); Red Cell Distribution Width 13.6 % (11.5-14.5); Segmented Neutrophils % 86.2 %
[2017-09-26] MEDS: MethylPREDNISolone 40 MG/ML VIAL IVP SCH ×2 (05:39→18:14)
[2017-09-26] MEDS: *HR* Enoxaparin 40 MG/0.4 ML SYRINGE SQ SCH (05:39)
[2017-09-26] MEDS: *HR* HYDROcodone/Acet 5/325 mg TABLET PO PRN (05:39)
[2017-09-26] MEDS: Budesonide/Formoterol 160/4.5 MDI IH SCH ×2 (07:44→20:24)
--- NOTE | 2017-09-26 09:34 | Internal Med Progress Note ---
<Messi Sharif - Last Filed: 09/26/17 12:32> Date of Encounter: 09/26/17 Time of Encounter: 09:33 - Assessment and plan (1) Acute respiratory failure Current Visit: Yes Status: Acute Assessment and plan: Likely secondary to COPD Exacerbation and right sided PNA in setting of Flu; but still requiring 10 L Will continue patient on Levaquin, steroid taper, breathing treatments, and BiPAP as needed May qualify her for oxygen prior to discharge Echocardiogram and repeat CXR pending Qualifiers: Respiratory failure complication: hypercapnia Qualified Code(s): J96.02 - Acute respiratory failure with hypercapnia (2) COPD exacerbation Current Visit: Yes Status: Acute Assessment and plan: Monitor O2 sats - IV steroids - IV levaquin day 4 - Duonebs (3) Right lower lobe pneumonia Current Visit: Yes Status: Acute Assessment and plan: She denies history of aspiration Continue on Levaquin day 3 as above Qualifiers: Pneumonia type: due to unspecified organism Qualified Code(s): J18.1 - Lobar pneumonia, unspecified organism (4) FABIOLA (acute kidney injury) Current Visit: Yes Status: Acute Assessment and plan: Resolved, as Cr stable at .7 Will continue to monitor kidney function and electrolytes (5) Pulmonary nodule Current Visit: Yes Status: Chronic Assessment and plan: Discovered on CTA, radiologist recommended outpatient surveillance follow up in 6-12 months (6) Hypothyroid Current Visit: Yes Status: Chronic Assessment and plan: Continue home synthroid Qualifiers: Hypothyroidism type: acquired Qualified Code(s): E03.9 - Hypothyroidism, unspecified (7) HTN (hypertension) Current Visit: Yes Status: Chronic Assessment and plan: Holding home Lisinopril in setting of recent FABIOLA Blood pressures stable Qualifiers: Hypertension type: essential hypertension Qualified Code(s): I10 - Essential (primary) hypertension (8) DVT prophylaxis Current Visit: Yes Status: Acute Assessment and plan: Lovenox SQ - Subjective Interval history: Patient seen and examined at bedside. She states her breathing is about the same but denies any chest pain, fever, nausea, vomiting diarrhea. She states she does have a frontal headache but this is chronic for her. - Constitutional Vitals: Temp Pulse Resp BP Pulse Ox 97.9 F 88 18 121/72 95 09/26/17 07:47 09/26/17 07:47 09/26/17 07:47 09/26/17 07:47 09/26/17 07:47 General appearance: Present: cooperative, A&O X 3, pleasant, obese, answers questions appropriately - Head Head exam: Present: atraumatic, normocephalic - Eye Eye exam: Present: PERRL, conjuntiva pink, sclera anicteric - Neck Neck exam general surgery: Present: supple, trachea midline. Absent: lymphadenopathy - Respiratory Respiratory exam: Present: wheezes. Absent: accessory muscle use, rales, rhonchi - Cardiovascular Cardiovascular exam: Present: RRR, +S1, +S2. Absent: diastolic murmur, gallop, rubs, systolic murmur - GI/Abdominal GI/Abdominal exam: Present: normal bowel sounds, soft, no peritoneal signs. Absent: distended, tenderness - Extremities Exam Extremities exam: Present: warm, radial pulses palpable and symmetrical. Absent : calf tenderness, cyanotic, pedal edema - Neurological Exam Neurological exam: Present: alert, no focal deficits. Absent: facial droop, speech deficit - Skin Skin exam: Present: dry, intact Internal Medicine: Result - Labs CBC & Chem 7: 09/26/17 02:59 09/26/17 02:59 Labs: Short CBC 09/26/17 Range/Units 02:59 WBC 9.1 (4.3-11.1) K/mcL Hgb 15.2 (11.5-15.4) g/dL Hct 49.9 H (35.3-44.9) % Plt Count 119 L (140-400) K/mcL Neutrophils # 7.8 (1.6-8.9) K/mcL BMP 09/26/17 02:59 Sodium 140 Potassium 4.8 Chloride 101 Carbon Dioxide 39 H BUN 23 Creatinine 0.78 Glucose 130 H Calcium 9.0 - ABG Interpretation ABG results: ABG ABG pH 7.30 pH Units (7.32-7.45) L 09/23/17 19:10 ABG pCO2 70 mmHg (35-45) H* 09/23/17 19:10 ABG pO2 62 mmHg (85-104) L 09/23/17 19:10 ABG O2 Saturation 88 % (95-98) L 09/23/17 19:10 - VTE Documentation of Mechanical Device: Graduated compression elastic hosiery Consult Discharge Plan - Plan Referrals: Soham Wheeler Jr, MD [Primary Care Provider] - <Donnie Hancock - Last Filed: 09/26/17 13:47> Date of Encounter: 09/26/17 - Constitutional Vitals: Temp Pulse Resp BP Pulse Ox 97.8 F 89 22 121/58 96 09/26/17 11:55 09/26/17 11:55 09/26/17 11:55 09/26/17 11:55 09/26/17 11:55 Internal Medicine: Result - Labs CBC & Chem 7: 09/26/17 02:59 09/26/17 02:59 Labs: Short CBC 09/26/17 Range/Units 02:59 WBC 9.1 (4.3-11.1) K/mcL Hgb 15.2 (11.5-15.4) g/dL Hct 49.9 H (35.3-44.9) % Plt Count 119 L (140-400) K/mcL Neutrophils # 7.8 (1.6-8.9) K/mcL BMP 09/26/17 02:59 Sodium 140 Potassium 4.8 Chloride 101 Carbon Dioxide 39 H BUN 23 Creatinine 0.78 Glucose 130 H Calcium 9.0 - ABG Interpretation ABG results: ABG ABG pH 7.30 pH Units (7.32-7.45) L 09/23/17 19:10 ABG pCO2 70 mmHg (35-45) H* 09/23/17 19:10 ABG pO2 62 mmHg (85-104) L 09/23/17 19:10 ABG O2 Saturation 88 % (95-98) L 09/23/17 19:10 - Attending Attestation I personally interviewed and examined this patient. I agree with the findings, assessment, and plan of Dr. Sharif, internal medicine resident. Patient states her breathing is improved, but she still remains on 10 L of oxygen per nasal cannula. She continues on Levaquin a #3 for pneumonia, community-acquired. He is also day 3 of Tamiflu for influenza A infection. He continues on aggressive bronchodilator therapy, as well as IV Solu-Medrol for suspected COPD exacerbation. Mucinex added. Due to lack of significant improvement, we will expand antibiotics to include Zosyn as well also check a urine Legionella antigen. Update chest x-ray. We did attempt diuresis for which she did well with a brisk diuresis but did not improve and her oxygenation. Echocardiogram is ordered as well. If patient fails to continue to improve or if she worsens would consult pulmonary medicine. Continue to focus on aggressive pulmonary toilet.
[2017-09-26] MEDS: Ondansetron ODT 4 MG TAB.RAPDIS SL PRN (11:21)
[2017-09-26] MEDS: Levofloxacin 750 MG/150 ML 750 MG/150 ML BAG IVPB SCH (11:23)
[2017-09-26] MEDS: Piperacillin/Tazobactam 3.375 GM/200 ML BAG IVPB SCH (23:04)
[2017-09-27 03:50] LABS: Basophils % 0.3 %; Hemoglobin 15.7 g/dL (11.5-15.4); Immature Granulocytes % 1.3 % (0-4); Lymphocytes # 0.6 K/mcL (0.6-4.6); Lymphocytes % 9.2 %; Mean Corpuscular HGB Conc 30.2 g/dL (31.6-35.5); Mean Corpuscular Volume 102.6 fL (83.0-100.0); Monocytes # 0.5 K/mcL (0.0-1.3); Monocytes % 8.5 %; Neutrophils # 4.9 K/mcL (1.6-8.9); Platelet Count 109 K/mcL (140-400); Red Blood Count 5.07 M/mcL (3.82-4.97); Red Cell Distribution Width 13.4 % (11.5-14.5); Segmented Neutrophils % 80.7 %
[2017-09-27] MEDS: Ipratropium/Albuterol Neb 3 ML IH SCH ×5 (04:54→20:02)
[2017-09-27] MEDS: MethylPREDNISolone 40 MG/ML VIAL IVP SCH ×2 (05:01→16:56)
[2017-09-27] MEDS: *HR* Enoxaparin 40 MG/0.4 ML SYRINGE SQ SCH (05:01)
[2017-09-27 05:07] LABS: BUN/Creatinine Ratio 32 (6-26); Blood Urea Nitrogen 24 mg/dL (8-23); Calcium 9.1 mg/dL (8.6-10.3); Carbon Dioxide 39 mEq/L (23-29); Chloride 96 mEq/L (98-107); Glucose 136 mg/dL (70-105); Osmolality,Calculated 294 (280-300); Potassium 4.5 mEq/L (3.5-5.1); Sodium 139 mEq/L (136-145); eGFR For African Americans > 60 (> 60); eGFR For Non-African Americans > 60 (> 60)
[2017-09-27] MEDS: Budesonide/Formoterol 160/4.5 MDI IH SCH ×2 (08:10→20:03)
[2017-09-27] MEDS: Levofloxacin 750 MG/150 ML 750 MG/150 ML BAG IVPB SCH (08:26)
[2017-09-27] MEDS: Piperacillin/Tazobactam 3.375 GM/200 ML BAG IVPB SCH (10:05)
--- NOTE | 2017-09-27 22:21 | Internal Med Progress Note ---
Date of Encounter: 09/27/17 Time of Encounter: 10:18 - Assessment and plan (1) Acute respiratory failure Current Visit: Yes Status: Acute Assessment and plan: From COPD Exacerbation due to right sided PNA and Flu; Dyspnea improving. Decreased appetitei. Will continue patient on Levaquin, steroid taper, breathing treatments, and BiPAP as needed Echocardiogram yesterday showed LVEF 65%, mild LVEF, mild LV diastolic dysfunction, mild MR, trivial pericardial effusion. May qualify her for oxygen prior to discharge Patient states her breathing is improved, now on 2 L NC. She continues on Levaquin day #4 for pneumonia, community-acquired. He is also day 4 of Tamiflu for influenza A infection. Continue aggressive bronchodilator therapy, and IV Solu-Medrol, mucinex added. Zosyn added 09/26 because of lack of improvement, urinary antigens pending. Repeat CXR yesterday showed Mild bibasilar airspace disease due to atelectasis, edema, pneumonia or a combination of these processes. +2.8 L since admission. Diuresis was attempted but did not improve with oxygenation, however today she is improved. Continue to focus on aggressive pulmonary toilet. If patient fails to continue to improve or if she worsens would consult pulmonary medicine. Qualifiers: Respiratory failure complication: hypercapnia Qualified Code(s): J96.02 - Acute respiratory failure with hypercapnia (2) Pulmonary nodule Current Visit: Yes Status: Chronic Assessment and plan: Discovered on CTA, radiologist recommended outpatient surveillance follow up in 6-12 months (3) COPD exacerbation Current Visit: Yes Status: Acute Assessment and plan: Monitor O2 sats - IV steroids - IV levaquin, Zosyn - Duonebs (4) Hypothyroid Current Visit: Yes Status: Chronic Assessment and plan: Continue home synthroid Qualifiers: Hypothyroidism type: acquired Qualified Code(s): E03.9 - Hypothyroidism, unspecified (5) HTN (hypertension) Current Visit: Yes Status: Chronic Assessment and plan: Holding home Lisinopril in setting of recent FABIOLA Blood pressures stable Qualifiers: Hypertension type: essential hypertension Qualified Code(s): I10 - Essential (primary) hypertension (6) DVT prophylaxis Current Visit: Yes Status: Acute Assessment and plan: Lovenox SQ - Subjective Interval history: Patient has poor appetite this AM. She is trying to finish breakfast. States breathing is improved. - Constitutional Vitals: Temp Pulse Resp BP Pulse Ox 98.3 F 105 21 123/72 90 09/27/17 20:17 09/27/17 20:17 09/27/17 20:17 09/27/17 20:17 09/27/17 20:58 General appearance: Present: cooperative, A&O X 3, pleasant, obese, answers questions appropriately Internal Medicine: Result - Labs CBC & Chem 7: 09/27/17 03:29 09/27/17 03:29 Labs: Short CBC 09/27/17 Range/Units 03:29 WBC 6.1 (4.3-11.1) K/mcL Hgb 15.7 H (11.5-15.4) g/dL Hct 52.0 H (35.3-44.9) % Plt Count 109 L (140-400) K/mcL Neutrophils # 4.9 (1.6-8.9) K/mcL BMP 09/27/17 03:29 Sodium 139 Potassium 4.5 Chloride 96 L Carbon Dioxide 39 H BUN 24 H Creatinine 0.75 Glucose 136 H Calcium 9.1 - ABG Interpretation ABG results: ABG ABG pH 7.30 pH Units (7.32-7.45) L 09/23/17 19:10 ABG pCO2 70 mmHg (35-45) H* 09/23/17 19:10 ABG pO2 62 mmHg (85-104) L 09/23/17 19:10 ABG O2 Saturation 88 % (95-98) L 09/23/17 19:10 - VTE Documentation of Mechanical Device: Graduated compression elastic hosiery Consult Discharge Plan - Plan Referrals: Soham Wheeler Jr, MD [Primary Care Provider] -
[2017-09-28] MEDS: Ipratropium/Albuterol Neb 3 ML IH SCH ×6 (00:16→21:04)
[2017-09-28 04:58] LABS: Basophils % 0.3 %; Hematocrit 50.7 % (35.3-44.9); Hemoglobin 15.9 g/dL (11.5-15.4); Lymphocytes # 0.7 K/mcL (0.6-4.6); Lymphocytes % 11.7 %; Mean Corpuscular HGB Conc 31.4 g/dL (31.6-35.5); Mean Corpuscular Hemoglobin 31.4 pg (28.0-33.3); Mean Platelet Volume 10.8 fL (9.4-12.4); Monocytes # 0.7 K/mcL (0.0-1.3); Monocytes % 11.4 %; Neutrophils # 4.8 K/mcL (1.6-8.9); Platelet Count 109 K/mcL (140-400); Red Blood Count 5.07 M/mcL (3.82-4.97); Red Cell Distribution Width 13.2 % (11.5-14.5); Segmented Neutrophils % 75.6 %
[2017-09-28 05:29] LABS: BUN/Creatinine Ratio 29 (6-26); Blood Urea Nitrogen 22 mg/dL (8-23); Carbon Dioxide 40 mEq/L (23-29); Chloride 97 mEq/L (98-107); Glucose 123 mg/dL (70-105); Osmolality,Calculated 293 (280-300); Potassium 3.8 mEq/L (3.5-5.1); Sodium 139 mEq/L (136-145); eGFR For African Americans > 60 (> 60); eGFR For Non-African Americans > 60 (> 60)
[2017-09-28] MEDS: MethylPREDNISolone 40 MG/ML VIAL IVP SCH ×2 (05:33→17:10)
[2017-09-28] MEDS: *HR* Enoxaparin 40 MG/0.4 ML SYRINGE SQ SCH (05:33)
[2017-09-28] MEDS: Budesonide/Formoterol 160/4.5 MDI IH SCH ×2 (07:50→21:05)
[2017-09-28] MEDS: levoFLOXacin 750 MG TABLET PO SCH (07:59)
[2017-09-28] MEDS: *HR* HYDROcodone/Acet 5/325 mg TABLET PO PRN (09:22)
[2017-09-28] MEDS ORDERED: Furosemide 40 MG/4 ML VIAL IVP ONE (13:51)
--- NOTE | 2017-09-28 14:01 | Internal Med Progress Note ---
Date of Encounter: 09/28/17 Time of Encounter: 13:57 - Assessment and plan (1) Acute respiratory failure Current Visit: Yes Status: Acute Assessment and plan: From COPD Exacerbation due to right sided PNA and Flu; Was able to get down to 2L NC but now having higher supp O2 requirements. Echocardiogramshowed LVEF 65%, mild LVEF, mild LV diastolic dysfunction, mild MR , trivial pericardial effusion. May qualify her for oxygen prior to discharge Patient states her breathing is improved, now on 2 L NC. She continues on Levaquin day #4 for pneumonia, community-acquired. He is also day 4 of Tamiflu for influenza A infection. Zosyn added 09/26 because of lack of improvement. Continue Levaquin/Zosyn. Taper steroids as tolerated, currently unable to taper. Continue to focus on aggressive pulmonary toilet. She is +2.8L since admission, will give diuresis with IV Lasix. Consult Pulmonary service Qualifiers: Respiratory failure complication: hypercapnia Qualified Code(s): J96.02 - Acute respiratory failure with hypercapnia (2) Pulmonary nodule Current Visit: Yes Status: Chronic Assessment and plan: Discovered on CTA, radiologist recommended outpatient surveillance follow up in 6-12 months (3) COPD exacerbation Current Visit: Yes Status: Acute Assessment and plan: Monitor O2 sats - IV steroids - IV levaquin, Zosyn - Duonebs (4) Hypothyroid Current Visit: Yes Status: Chronic Assessment and plan: Continue home synthroid Qualifiers: Hypothyroidism type: acquired Qualified Code(s): E03.9 - Hypothyroidism, unspecified (5) HTN (hypertension) Current Visit: Yes Status: Chronic Assessment and plan: Holding home Lisinopril in setting of recent FABIOLA Blood pressures stable Qualifiers: Hypertension type: essential hypertension Qualified Code(s): I10 - Essential (primary) hypertension (6) DVT prophylaxis Current Visit: Yes Status: Acute Assessment and plan: Lovenox SQ - Subjective Interval history: Patient states she had rough night, now on 10 L O2 - Constitutional Vitals: Temp Pulse Resp BP Pulse Ox 98.1 F 86 30 139/78 93 09/28/17 10:38 09/28/17 10:38 09/28/17 11:37 09/28/17 10:38 09/28/17 11:37 General appearance: Present: cooperative, A&O X 3, pleasant, obese, answers questions appropriately - Head Head exam: Present: atraumatic, normocephalic - Eye Eye exam: Present: PERRL, conjuntiva pink, sclera anicteric Pupils: Present: PERRL - Neck Neck exam general surgery: Present: supple, trachea midline. Absent: lymphadenopathy - Respiratory Respiratory exam: Present: rales (bilateral lower lobes), respiratory distress ( mild), wheezes. Absent: accessory muscle use, rhonchi - Cardiovascular Cardiovascular exam: Present: RRR, +S1, +S2. Absent: diastolic murmur, gallop, rubs, systolic murmur - GI/Abdominal GI/Abdominal exam: Present: normal bowel sounds, soft, no peritoneal signs. Absent: distended, tenderness - Extremities Exam Extremities exam: Present: pedal edema (trace bilaterally), warm, radial pulses palpable and symmetrical. Absent: calf tenderness, cyanotic - Neurological Exam Neurological exam: Present: CN II-XII intact, oriented X3, no focal deficits. Absent: pronater drift, facial droop, speech deficit - Skin Skin exam: Present: dry, intact Internal Medicine: Result - Labs CBC & Chem 7: 09/28/17 04:25 09/28/17 04:25 Labs: Short CBC 09/28/17 Range/Units 04:25 WBC 6.3 (4.3-11.1) K/mcL Hgb 15.9 H (11.5-15.4) g/dL Hct 50.7 H (35.3-44.9) % Plt Count 109 L (140-400) K/mcL Neutrophils # 4.8 (1.6-8.9) K/mcL BMP 09/28/17 04:25 Sodium 139 Potassium 3.8 Chloride 97 L Carbon Dioxide 40 H* BUN 22 Creatinine 0.77 Glucose 123 H Calcium 9.0 - ABG Interpretation ABG results: ABG ABG pH 7.30 pH Units (7.32-7.45) L 09/23/17 19:10 ABG pCO2 70 mmHg (35-45) H* 09/23/17 19:10 ABG pO2 62 mmHg (85-104) L 09/23/17 19:10 ABG O2 Saturation 88 % (95-98) L 09/23/17 19:10 - VTE Documentation of Mechanical Device: Graduated compression elastic hosiery Consult Discharge Plan - Plan Referrals: Soham Wheeler Jr, MD [Primary Care Provider] -
--- NOTE | 2017-09-28 14:38 | Pulmonology Consult Note ---
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 Qualifiers: Respiratory failure complication: hypercapnia Qualified Code(s): J96.22 - Acute and chronic respiratory failure with hypercapnia (2) COPD exacerbation Current Visit: Yes Status: Acute Patient has extensive centrilobular emphsyema now presenting with COPD exacerbation complicated by Influenza and most likely superimposed RLL pneumonia to continue broad spectrum antibiotics , to finish the course of Tamiflu . Will need overnight BIPAP qualification when more stable for now use BIPAP at Night . (3) Right lower lobe pneumonia Current Visit: Yes Status: Acute Complicated by influenza pneumonia to continue broad spectrum antibiotics and complete the course of tamiflu Qualifiers: Pneumonia type: due to unspecified organism Qualified Code(s): J18.1 - Lobar pneumonia, unspecified organism (4) Diastolic heart failure Current Visit: Yes Status: Acute Patient has diastolic dysfunction with fluid overload will start on diuresis as tolerated . Qualifiers: Qualified Code(s): I50.33 - Acute on chronic diastolic (congestive) heart failure History of Present Illness Consult date: 09/28/17 Requesting physician: Jens Salazar Reason for consult: dyspnea, cough, COPD Chief complaint: Shortness of breadth with cough and sputum production History of present illness: 71 year old female with past medical history significant for extensive smoking history , COPD with extensive centrilobular emphysema comes with increased shortness of breadth , cough and sputum production , denies any hemoptysis found to be in acute viral induced COPD exacerbation complicated by superimposed pneumonia found to be in acute on chronic hypercapnic respiratory failure needing BIPAP now needing BIPAP at night and when sleep during the day , says her cough and sputum production is better , her shortness of breadth is better denies any chest pain or tightness denies any headache or any other neurological symptoms. Pulmonary was consulted for acute hypoxic and hypercapnic respiratory failure. Past Med Surg Social Fam HX - Past Medical History Medical history: COPD, myocardial infarction Psychiatric history: no psych history - Past Surgical History Surgical History: no surgical history, non-contributory - Social History Smoking Status: Current every day smoker Packs per day: 1 Smokeless Tobacco Status: No Alcohol use: none Drug use: none Medications and Allergies Albuterol Sulfate [Albuterol Inhaler] 2 puff IH Q4H PRN 09/23/17 [History] Aspirin 325 mg PO DAILY 09/23/17 [History] Atorvastatin [Lipitor] 40 mg PO HS 09/23/17 [History] Budesonide/Formoterol 160/4.5 [Symbicort 160/4.5] 2 puff IH BIDR 09/23/17 [ History] Furosemide [Lasix] 20 mg PO DAILY 09/23/17 [History] Levothyroxine Sodium 175 mcg PO QAM 09/23/17 [History] Lisinopril [Zestril] 5 mg PO BID 09/23/17 [History] Metoprolol [Lopressor] 25 mg PO BID 09/23/17 [History] 3 Allergy/AdvReac Type Severity Reaction Status Date / Time No Known Allergies Allergy Verified 09/23/17 19:12 All Systems: All other systems were reviewed found to be negative Physical Examination Vital Signs: Vital Signs, Last 4 Hours Temp Pulse Resp BP Pulse Ox 09/28/17 11:37 30 93 09/28/17 10:38 98.1 F 86 14 139/78 92 Auscultation: bilateral: wheezes Results - Laboratory Findings CBC and BMP: 09/29/17 04:29 09/29/17 04:29 ABG ABG pH 7.30 pH Units (7.32-7.45) L 09/23/17 19:10 ABG pCO2 70 mmHg (35-45) H* 09/23/17 19:10 ABG pO2 62 mmHg (85-104) L 09/23/17 19:10 ABG O2 Saturation 88 % (95-98) L 09/23/17 19:10 Abnormal lab findings: Abnormal lab results RBC 5.07 M/mcL (3.82-4.97) H 09/28/17 04:25 Hgb 15.9 g/dL (11.5-15.4) H 09/28/17 04:25 Hct 50.7 % (35.3-44.9) H 09/28/17 04:25 MCHC 31.4 g/dL (31.6-35.5) L 09/28/17 04:25 Plt Count 109 K/mcL (140-400) L 09/28/17 04:25 ABG pH 7.30 pH Units (7.32-7.45) L 09/23/17 19:10 ABG pCO2 70 mmHg (35-45) H* 09/23/17 19:10 ABG pO2 62 mmHg (85-104) L 09/23/17 19:10 ABG HCO3 34 mEq/L (21-27) H 09/23/17 19:10 ABG Total CO2 36 mEq/L (20-26) H 09/23/17 19:10 ABG O2 Saturation 88 % (95-98) L 09/23/17 19:10 ABG Base Excess 4 mEq/L (-2 to 3) H 09/23/17 19:10 Chloride 97 mEq/L (98-107) L 09/28/17 04:25 Carbon Dioxide 40 mEq/L (23-29) H* 09/28/17 04:25 BUN/Creatinine Ratio 29 (6-26) H 09/28/17 04:25 Glucose 123 mg/dL (70-105) H 09/28/17 04:25 POC Glucose 159 (58-89) H 09/23/17 22:49 Influ A (H1N1/09) PCR DETECTED (Not Detect) A 09/24/17 09:00 - Microbiology Findings Microbiology Findings: Microbiology, Last 48 Hours 09/24/17 08:30 Legionella Antigen - Final Urine,Clean Catch - Clinical Findings Intake & Output: Intake & Output 09/27/17 09/28/17 09/28/17 23:59 07:59 15:59 Intake Total 220 / 220 560 / 560 Output Total 300 / 300 600 / 600 Balance -80 / -80 -600 / -600 560 / 560 Consult Discharge Plan - Plan Referrals: Soham Wheeler Jr, MD [Primary Care Provider] -
[2017-09-29] MEDS: Ipratropium/Albuterol Neb 3 ML IH SCH ×6 (00:19→19:46)
[2017-09-29 05:35] LABS: Basophils % 0.6 %; Hematocrit 50.6 % (35.3-44.9); Hemoglobin 16.1 g/dL (11.5-15.4); Immature Granulocytes % 1.3 % (0-4); Lymphocytes # 0.7 K/mcL (0.6-4.6); Lymphocytes % 11.3 %; Mean Corpuscular HGB Conc 31.8 g/dL (31.6-35.5); Mean Corpuscular Hemoglobin 31.5 pg (28.0-33.3); Mean Platelet Volume 10.8 fL (9.4-12.4); Monocytes # 0.8 K/mcL (0.0-1.3); Monocytes % 13.4 %; Neutrophils # 4.5 K/mcL (1.6-8.9); Platelet Count 122 K/mcL (140-400); Red Blood Count 5.11 M/mcL (3.82-4.97); Red Cell Distribution Width 13.2 % (11.5-14.5); Segmented Neutrophils % 73.4 %
[2017-09-29] MEDS: MethylPREDNISolone 40 MG/ML VIAL IVP SCH ×2 (05:44→18:00)
[2017-09-29] MEDS: *HR* Enoxaparin 40 MG/0.4 ML SYRINGE SQ SCH (05:45)
[2017-09-29 06:23] LABS: BUN/Creatinine Ratio 26 (6-26); Blood Urea Nitrogen 24 mg/dL (8-23); Calcium 9.1 mg/dL (8.6-10.3); Carbon Dioxide 42 mEq/L (23-29); Chloride 96 mEq/L (98-107); Glucose 115 mg/dL (70-105); Osmolality,Calculated 297 (280-300); Potassium 3.7 mEq/L (3.5-5.1); Sodium 141 mEq/L (136-145); eGFR For African Americans > 60 (> 60); eGFR For Non-African Americans > 60 (> 60)
[2017-09-29] MEDS: Budesonide/Formoterol 160/4.5 MDI IH SCH ×2 (07:47→19:45)
[2017-09-29] MEDS: levoFLOXacin 750 MG TABLET PO SCH (09:50)
--- NOTE | 2017-09-29 16:35 | Pulmonology Progress Note ---
Date of Encounter: 09/30/17 Time of Encounter: 09:45 Assessment and Plan (1) Acute and chronic respiratory failure Current Visit: Yes Status: Acute Secondary to COPD exacerbation will need overnight BIPAP qualification , nocturnal pulse oximetry done on 3 litres of O2 when stable may be tomorrow night . To cotinue intermittent BIPAP prn . Qualifiers: Respiratory failure complication: hypercapnia Qualified Code(s): J96.22 - Acute and chronic respiratory failure with hypercapnia (2) COPD exacerbation Current Visit: Yes Status: Acute To continue steroids will change to PO prednisone 40 mg PO tomorrow. on discharge on 12 day taper of prednisone . To continue the current regimen of bronchodilators on discharge Duoneb nebulizer , Symbicort . Pulmonary follow up in 6-8 weeks after discharge . Patient is motivated to quit smoking to send home on nicotine patches . (3) Right lower lobe pneumonia Current Visit: Yes Status: Acute To finish total 5 days of Zosyn the transition to Doxycycline Qualifiers: Pneumonia type: due to unspecified organism Qualified Code(s): J18.1 - Lobar pneumonia, unspecified organism (4) Diastolic heart failure Current Visit: Yes Status: Acute To continue diuresis as tolerated . Diuresis according to primary team . Qualifiers: Qualified Code(s): I50.30 - Unspecified diastolic (congestive) heart failure Subjective Principal diagnosis: COPD exacerbation with pneumonia Interval history: Patient is sitting in bed feeling lot better than yesterday still not back to baseline .Denies any chest pain or tightness. Objective PUL Vital signs: Last Vital Signs Temp 98.3 F 09/29/17 15:40 Pulse 106 09/29/17 15:40 Resp 18 09/29/17 15:40 BP 138/63 09/29/17 15:40 Pulse Ox 95 09/29/17 15:40 Effort: mildly labored Auscultation: bilateral: wheezes (scattered wheezes ) Results - Laboratory Findings CBC and BMP: 09/30/17 03:58 09/30/17 03:58 ABG ABG pH 7.30 pH Units (7.32-7.45) L 09/23/17 19:10 ABG pCO2 70 mmHg (35-45) H* 09/23/17 19:10 ABG pO2 62 mmHg (85-104) L 09/23/17 19:10 ABG O2 Saturation 88 % (95-98) L 09/23/17 19:10 Abnormal lab findings: Abnormal lab results RBC 5.11 M/mcL (3.82-4.97) H 09/29/17 04:29 Hgb 16.1 g/dL (11.5-15.4) H 09/29/17 04:29 Hct 50.6 % (35.3-44.9) H 09/29/17 04:29 Plt Count 122 K/mcL (140-400) L 09/29/17 04:29 ABG pH 7.30 pH Units (7.32-7.45) L 09/23/17 19:10 ABG pCO2 70 mmHg (35-45) H* 09/23/17 19:10 ABG pO2 62 mmHg (85-104) L 09/23/17 19:10 ABG HCO3 34 mEq/L (21-27) H 09/23/17 19:10 ABG Total CO2 36 mEq/L (20-26) H 09/23/17 19:10 ABG O2 Saturation 88 % (95-98) L 09/23/17 19:10 ABG Base Excess 4 mEq/L (-2 to 3) H 09/23/17 19:10 Chloride 96 mEq/L (98-107) L 09/29/17 04:29 Carbon Dioxide 42 mEq/L (23-29) H* 09/29/17 04:29 BUN 24 mg/dL (8-23) H 09/29/17 04:29 Glucose 115 mg/dL (70-105) H 09/29/17 04:29 POC Glucose 159 (58-89) H 09/23/17 22:49 Influ A (H1N1/09) PCR DETECTED (Not Detect) A 09/24/17 09:00 - Clinical Findings Intake & Output: Intake & Output 09/29/17 09/29/17 09/29/17 07:59 15:59 23:59 Intake Total 300 / 300 360 / 360 Balance 300 / 300 360 / 360 - VTE Documentation of Mechanical Device: Graduated compression elastic hosiery Consult Discharge Plan - Plan Referrals: Soham Wheeler Jr, MD [Primary Care Provider] -
--- NOTE | 2017-09-29 23:03 | Internal Med Progress Note ---
Date of Encounter: 09/29/17 Time of Encounter: 18:00 - Assessment and plan (1) Acute respiratory failure Current Visit: Yes Status: Acute Assessment and plan: From COPD Exacerbation due to right sided PNA and Flu; Was able to get down to 2L NC but now having higher supp O2 requirements. Echocardiogramshowed LVEF 65%, mild LVEF, mild LV diastolic dysfunction, mild MR , trivial pericardial effusion. May qualify her for oxygen prior to discharge Patient states her breathing is improved, now on 2 L NC. She continues on Levaquin day #4 for pneumonia, community-acquired. He is also day 4 of Tamiflu for influenza A infection. Zosyn added 09/26 because of lack of improvement. Continue Levaquin/Zosyn. Taper steroids as tolerated Continue to focus on aggressive pulmonary toilet. Pulmonology following, recommendations appreciated. O2 qualification test tonight Qualifiers: Respiratory failure complication: hypercapnia Qualified Code(s): J96.02 - Acute respiratory failure with hypercapnia (2) Pulmonary nodule Current Visit: Yes Status: Chronic Assessment and plan: Discovered on CTA, radiologist recommended outpatient surveillance follow up in 6-12 months (3) COPD exacerbation Current Visit: Yes Status: Acute Assessment and plan: Monitor O2 sats - IV steroids - IV levaquin, Zosyn - Duonebs (4) Hypothyroid Current Visit: Yes Status: Chronic Assessment and plan: Continue home synthroid Qualifiers: Hypothyroidism type: acquired Qualified Code(s): E03.9 - Hypothyroidism, unspecified (5) HTN (hypertension) Current Visit: Yes Status: Chronic Assessment and plan: Holding home Lisinopril in setting of recent FABIOLA Blood pressures stable Qualifiers: Hypertension type: essential hypertension Qualified Code(s): I10 - Essential (primary) hypertension (6) DVT prophylaxis Current Visit: Yes Status: Acute Assessment and plan: Lovenox SQ - Subjective Interval history: Significantly better than yesterday. Currently on 3 L NS. - Constitutional Vitals: Temp Pulse Resp BP Pulse Ox 98.3 F 106 34 138/63 95 09/29/17 15:40 09/29/17 15:40 09/29/17 19:47 09/29/17 15:40 09/29/17 19:47 General appearance: Present: cooperative, A&O X 3, pleasant, obese, answers questions appropriately Exam: Gen: mild respiratory distress with accessory muscle use CVS: RRR Lungs: + wheezing, no rales, no rhonchi Ext: no edema Internal Medicine: Result - Labs CBC & Chem 7: 09/29/17 04:29 09/29/17 04:29 Labs: Short CBC 09/29/17 Range/Units 04:29 WBC 6.2 (4.3-11.1) K/mcL Hgb 16.1 H (11.5-15.4) g/dL Hct 50.6 H (35.3-44.9) % Plt Count 122 L (140-400) K/mcL Neutrophils # 4.5 (1.6-8.9) K/mcL BMP 09/29/17 04:29 Sodium 141 Potassium 3.7 Chloride 96 L Carbon Dioxide 42 H* BUN 24 H Creatinine 0.91 Glucose 115 H Calcium 9.1 - ABG Interpretation ABG results: ABG ABG pH 7.30 pH Units (7.32-7.45) L 09/23/17 19:10 ABG pCO2 70 mmHg (35-45) H* 09/23/17 19:10 ABG pO2 62 mmHg (85-104) L 09/23/17 19:10 ABG O2 Saturation 88 % (95-98) L 09/23/17 19:10 - VTE Documentation of Mechanical Device: Graduated compression elastic hosiery Consult Discharge Plan - Plan Referrals: Soham Wheeler Jr, MD [Primary Care Provider] -
[2017-09-30] MEDS: Ipratropium/Albuterol Neb 3 ML IH SCH ×7 (00:09→23:35)
[2017-09-30 04:46] LABS: Basophils % 0.5 %; Hematocrit 49.9 % (35.3-44.9); Hemoglobin 15.7 g/dL (11.5-15.4); Immature Granulocytes % 1.6 % (0-4); Lymphocytes # 0.6 K/mcL (0.6-4.6); Lymphocytes % 9.9 %; Mean Corpuscular HGB Conc 31.5 g/dL (31.6-35.5); Mean Corpuscular Hemoglobin 31.2 pg (28.0-33.3); Mean Platelet Volume 11.1 fL (9.4-12.4); Monocytes # 0.5 K/mcL (0.0-1.3); Monocytes % 8.4 %; Neutrophils # 4.6 K/mcL (1.6-8.9); Platelet Count 122 K/mcL (140-400); Red Blood Count 5.04 M/mcL (3.82-4.97); Red Cell Distribution Width 13.5 % (11.5-14.5); Segmented Neutrophils % 79.6 %
[2017-09-30 05:09] LABS: BUN/Creatinine Ratio 29 (6-26); Blood Urea Nitrogen 22 mg/dL (8-23); Calcium 8.8 mg/dL (8.6-10.3); Carbon Dioxide 38 mEq/L (23-29); Chloride 99 mEq/L (98-107); Glucose 138 mg/dL (70-105); Osmolality,Calculated 298 (280-300); Potassium 4.1 mEq/L (3.5-5.1); Sodium 141 mEq/L (136-145); eGFR For African Americans > 60 (> 60); eGFR For Non-African Americans > 60 (> 60)
[2017-09-30] MEDS: MethylPREDNISolone 40 MG/ML VIAL IVP SCH (05:20)
[2017-09-30] MEDS: *HR* Enoxaparin 40 MG/0.4 ML SYRINGE SQ SCH (05:20)
[2017-09-30] MEDS ORDERED: Furosemide 40 MG/4 ML VIAL IVP ONE (08:43)
[2017-09-30] MEDS: predniSONE 20 MG TABLET PO SCH (09:45)
[2017-09-30] MEDS: levoFLOXacin 750 MG TABLET PO SCH (09:45)
[2017-09-30] MEDS: Budesonide/Formoterol 160/4.5 MDI IH SCH ×2 (11:06→20:11)
--- NOTE | 2017-09-30 18:25 | Internal Med Progress Note ---
Date of Encounter: 09/30/17 Time of Encounter: 18:16 - Assessment and plan (1) Acute respiratory failure Current Visit: Yes Status: Acute Assessment and plan: From COPD Exacerbation due to right sided PNA and Flu; Echocardiogram showed LVEF 65%, mild LVEF, mild LV diastolic dysfunction, mild MR, trivial pericardial effusion. Continue Levaquin/Zosyn, Tamiflu Pulmonology following, recommendations appreciated. - Will finish today Day #5 of Zosyn and tomorrow start Doxycycline. Prednisone 40 PO, and discharge on 12 day taper of prednisone. Could not do O2 qualification test overnight, respiratory therapy to try again tonight. Qualifiers: Respiratory failure complication: hypercapnia Qualified Code(s): J96.02 - Acute respiratory failure with hypercapnia (2) Pulmonary nodule Current Visit: Yes Status: Chronic Assessment and plan: Discovered on CTA, radiologist recommended outpatient surveillance follow up in 6-12 months (3) COPD exacerbation Current Visit: Yes Status: Acute Assessment and plan: Monitor O2 sats - IV steroids - IV levaquin, Zosyn - Duonebs (4) Hypothyroid Current Visit: Yes Status: Chronic Assessment and plan: Continue home synthroid Qualifiers: Hypothyroidism type: acquired Qualified Code(s): E03.9 - Hypothyroidism, unspecified (5) HTN (hypertension) Current Visit: Yes Status: Chronic Assessment and plan: Holding home Lisinopril in setting of recent FABIOLA Blood pressures stable Qualifiers: Hypertension type: essential hypertension Qualified Code(s): I10 - Essential (primary) hypertension (6) DVT prophylaxis Current Visit: Yes Status: Acute Assessment and plan: Lovenox SQ - Subjective Interval history: Patient was unable to complete O2 qualification test because of desaturating, after that she had to be placed on O2 increased to 5 L NC. She has been resting comfortably this AM since then. - Constitutional Vitals: Temp Pulse Resp BP Pulse Ox 98.1 F 123 25 110/46 96 09/30/17 15:07 09/30/17 15:07 09/30/17 15:58 09/30/17 15:07 09/30/17 15:58 General appearance: Present: cooperative, A&O X 3, pleasant, obese, answers questions appropriately Exam: Gen: no acute respiratory distress CVS: RRR Lungs: + wheezing - minimal compared to yesterday, no rales, no rhonchi Ext: no edema Internal Medicine: Result - Labs CBC & Chem 7: 09/30/17 03:58 09/30/17 03:58 Labs: Short CBC 09/30/17 Range/Units 03:58 WBC 5.7 (4.3-11.1) K/mcL Hgb 15.7 H (11.5-15.4) g/dL Hct 49.9 H (35.3-44.9) % Plt Count 122 L (140-400) K/mcL Neutrophils # 4.6 (1.6-8.9) K/mcL BMP 09/30/17 03:58 Sodium 141 Potassium 4.1 Chloride 99 Carbon Dioxide 38 H BUN 22 Creatinine 0.76 Glucose 138 H Calcium 8.8 - ABG Interpretation ABG results: ABG ABG pH 7.30 pH Units (7.32-7.45) L 09/23/17 19:10 ABG pCO2 70 mmHg (35-45) H* 09/23/17 19:10 ABG pO2 62 mmHg (85-104) L 09/23/17 19:10 ABG O2 Saturation 88 % (95-98) L 09/23/17 19:10 - VTE Documentation of Mechanical Device: Intermittent pneumatic compression device Consult Discharge Plan - Plan Referrals: Soham Wheeler Jr, MD [Primary Care Provider] -
[2017-10-01] MEDS: Ipratropium/Albuterol Neb 3 ML IH SCH ×6 (03:43→23:05)
[2017-10-01] MEDS: *HR* Enoxaparin 40 MG/0.4 ML SYRINGE SQ SCH (06:03)
[2017-10-01] MEDS: Budesonide/Formoterol 160/4.5 MDI IH SCH ×2 (07:50→20:16)
[2017-10-01] MEDS: predniSONE 20 MG TABLET PO SCH (09:33)
[2017-10-01] MEDS: Furosemide 20 MG TABLET PO SCH (09:33)
[2017-10-01] MEDS: Aspirin 325 MG TABLET PO SCH (09:33)
[2017-10-01 09:46] LABS: Basophils # 0.1 K/mcL (0.0-0.2); Basophils % 0.6 %; Eosinophils % 0.1 %; Hematocrit 53.3 % (35.3-44.9); Hemoglobin 16.5 g/dL (11.5-15.4); Immature Granulocytes % 1.9 % (0-4); Lymphocytes # 1.4 K/mcL (0.6-4.6); Mean Corpuscular Hemoglobin 30.9 pg (28.0-33.3); Mean Corpuscular Volume 99.8 fL (83.0-100.0); Mean Platelet Volume 10.8 fL (9.4-12.4); Monocytes # 1.2 K/mcL (0.0-1.3); Monocytes % 11.7 %; Neutrophils # 7.3 K/mcL (1.6-8.9); Platelet Count 135 K/mcL (140-400); Red Blood Count 5.34 M/mcL (3.82-4.97); Red Cell Distribution Width 13.5 % (11.5-14.5); Segmented Neutrophils % 71.7 %
[2017-10-01 10:17] LABS: BUN/Creatinine Ratio 27 (6-26); Blood Urea Nitrogen 26 mg/dL (8-23); Calcium 8.9 mg/dL (8.6-10.3); Carbon Dioxide 41 mEq/L (23-29); Chloride 97 mEq/L (98-107); Glucose 87 mg/dL (70-105); Osmolality,Calculated 296 (280-300); Potassium 3.6 mEq/L (3.5-5.1); Sodium 141 mEq/L (136-145); eGFR For African Americans > 60 (> 60); eGFR For Non-African Americans 56 (> 60)
--- NOTE | 2017-10-01 20:55 | Internal Med Progress Note ---
Date of Encounter: 10/01/17 Time of Encounter: 15:53 - Assessment and plan (1) Acute respiratory failure Current Visit: Yes Status: Acute Assessment and plan: From COPD Exacerbation due to right sided PNA and Flu; Echocardiogram showed LVEF 65%, mild LVEF, mild LV diastolic dysfunction, mild MR, trivial pericardial effusion. Continue Levaquin/Zosyn, Tamiflu Pulmonology following, recommendations appreciated. Zosyn DC'd. start Doxycycline. Prednisone 40 PO, and discharge on 12 day taper of prednisone. Patient continues to require supportive therapy from right sided pneumonia and Influenza. Qualifiers: Respiratory failure complication: hypercapnia Qualified Code(s): J96.02 - Acute respiratory failure with hypercapnia (2) Pulmonary nodule Current Visit: Yes Status: Chronic Assessment and plan: Discovered on CTA, radiologist recommended outpatient surveillance follow up in 6-12 months (3) COPD exacerbation Current Visit: Yes Status: Acute Assessment and plan: Monitor O2 sats - IV steroids - IV levaquin, Zosyn - Duonebs (4) Hypothyroid Current Visit: Yes Status: Chronic Assessment and plan: Continue home synthroid Qualifiers: Hypothyroidism type: acquired Qualified Code(s): E03.9 - Hypothyroidism, unspecified (5) HTN (hypertension) Current Visit: Yes Status: Chronic Assessment and plan: Holding home Lisinopril in setting of recent FABIOLA Blood pressures stable Qualifiers: Hypertension type: essential hypertension Qualified Code(s): I10 - Essential (primary) hypertension (6) DVT prophylaxis Current Visit: Yes Status: Acute Assessment and plan: Lovenox SQ - Subjective Interval history: Patient has required bipap nearly all day. when off bipap she requires hi flow O2 - Constitutional Vitals: Temp Pulse Resp BP Pulse Ox 98.1 F 103 22 105/55 93 10/01/17 19:45 10/01/17 19:45 10/01/17 20:16 10/01/17 19:45 10/01/17 20:16 General appearance: Present: cooperative, A&O X 3, pleasant, obese, answers questions appropriately Exam: Gen: mild respiratory distress with accessory muscle use - but improved CVS: RRR Lungs: + wheezing, no rales, no rhonchi Ext: no edema Internal Medicine: Result - Labs CBC & Chem 7: 10/01/17 09:11 10/01/17 09:11 Labs: Short CBC 10/01/17 Range/Units 09:11 WBC 10.2 D (4.3-11.1) K/mcL Hgb 16.5 H (11.5-15.4) g/dL Hct 53.3 H (35.3-44.9) % Plt Count 135 L (140-400) K/mcL Neutrophils # 7.3 (1.6-8.9) K/mcL BMP 10/01/17 09:11 Sodium 141 Potassium 3.6 Chloride 97 L Carbon Dioxide 41 H* BUN 26 H Creatinine 0.98 Glucose 87 Calcium 8.9 - ABG Interpretation ABG results: ABG ABG pH 7.30 pH Units (7.32-7.45) L 09/23/17 19:10 ABG pCO2 70 mmHg (35-45) H* 09/23/17 19:10 ABG pO2 62 mmHg (85-104) L 09/23/17 19:10 ABG O2 Saturation 88 % (95-98) L 09/23/17 19:10 - VTE Documentation of Mechanical Device: Graduated compression elastic hosiery Consult Discharge Plan - Plan Referrals: Soham Wheeler Jr, MD [Primary Care Provider] -
[2017-10-02] MEDS: Ipratropium/Albuterol Neb 3 ML IH SCH ×5 (03:40→19:48)
[2017-10-02] MEDS: *HR* Enoxaparin 40 MG/0.4 ML SYRINGE SQ SCH (06:22)
[2017-10-02] MEDS: Budesonide/Formoterol 160/4.5 MDI IH SCH ×2 (07:22→19:48)
[2017-10-02] MEDS ORDERED: Furosemide 40 MG/4 ML VIAL IVP ONE (08:07)
[2017-10-02 08:38] LABS: Basophils % 0.3 %; Eosinophils % 0.3 %; Hematocrit 52.1 % (35.3-44.9); Hemoglobin 15.9 g/dL (11.5-15.4); Immature Granulocytes % 1.5 % (0-4); Immature Platelets 7.5 % (1.1-6.1); Lymphocytes # 1.6 K/mcL (0.6-4.6); Lymphocytes % 14.3 %; Mean Corpuscular HGB Conc 30.5 g/dL (31.6-35.5); Mean Corpuscular Volume 101.6 fL (83.0-100.0); Mean Platelet Volume 10.6 fL (9.4-12.4); Monocytes # 1.2 K/mcL (0.0-1.3); Monocytes % 10.8 %; Neutrophils # 8.4 K/mcL (1.6-8.9); Platelet Count 141 K/mcL (140-400); Red Blood Count 5.13 M/mcL (3.82-4.97); Red Cell Distribution Width 13.5 % (11.5-14.5); Segmented Neutrophils % 72.8 %
[2017-10-02 09:01] LABS: BUN/Creatinine Ratio 35 (6-26); Blood Urea Nitrogen 28 mg/dL (8-23); Calcium 8.7 mg/dL (8.6-10.3); Carbon Dioxide 44 mEq/L (23-29); Chloride 97 mEq/L (98-107); Glucose 85 mg/dL (70-105); Osmolality,Calculated 295 (280-300); Potassium 3.5 mEq/L (3.5-5.1); Sodium 140 mEq/L (136-145); eGFR For African Americans > 60 (> 60); eGFR For Non-African Americans > 60 (> 60)
[2017-10-02] MEDS: Aspirin 325 MG TABLET PO SCH (09:29)
[2017-10-02] MEDS: predniSONE 20 MG TABLET PO SCH (09:29)
[2017-10-02] MEDS: Furosemide 20 MG TABLET PO SCH (09:29)
[2017-10-02] MEDS: Doxycycline 100 MG CAPSULE PO SCH ×2 (09:29→21:16)
--- NOTE | 2017-10-02 15:22 | Internal Med Progress Note ---
Date of Encounter: 10/02/17 Time of Encounter: 15:20 - Assessment and plan (1) Acute and chronic respiratory failure with hypercapnia Current Visit: Yes Status: Acute Assessment and plan: From COPD Exacerbation due to right sided PNA and Flu; Echocardiogram showed LVEF 65%, mild LVEF, mild LV diastolic dysfunction, mild MR, trivial pericardial effusion. Continue Levaquin/Zosyn, Tamiflu Pulmonology following, recommendations appreciated. Zosyn DC'd. start Doxycycline. Prednisone 40 PO, and discharge on 12 day taper of prednisone. Patient continues to require supportive therapy from right sided pneumonia and Influenza. Needs aggressive diuresis, will give IV Lasix and monitor Repeat Chest x-ray today. White count increased today to 11. May need to escalate abx therapy if worsens tomorrow (2) Acute respiratory failure Current Visit: Yes Status: Acute Assessment and plan: From COPD Exacerbation due to right sided PNA and Flu; Echocardiogram showed LVEF 65%, mild LVEF, mild LV diastolic dysfunction, mild MR, trivial pericardial effusion. Continue Levaquin/Zosyn, Tamiflu Pulmonology following, recommendations appreciated. Zosyn DC'd. start Doxycycline. Prednisone 40 PO, and discharge on 12 day taper of prednisone. Patient continues to require supportive therapy from right sided pneumonia and Influenza. Needs aggressive diuresis, will give IV Lasix and monitor Repeat Chest x-ray today. White count increased today to 11. May need to escalate abx therapy if worsens tomorrow Qualifiers: Respiratory failure complication: hypercapnia Qualified Code(s): J96.02 - Acute respiratory failure with hypercapnia (3) Pulmonary nodule Current Visit: Yes Status: Chronic Assessment and plan: Discovered on CTA, radiologist recommended outpatient surveillance follow up in 6-12 months (4) COPD exacerbation Current Visit: Yes Status: Acute Assessment and plan: Monitor O2 sats - IV steroids - IV levaquin, Zosyn - Duonebs (5) Hypothyroid Current Visit: Yes Status: Chronic Assessment and plan: Continue home synthroid Qualifiers: Hypothyroidism type: acquired Qualified Code(s): E03.9 - Hypothyroidism, unspecified (6) HTN (hypertension) Current Visit: Yes Status: Chronic Assessment and plan: Holding home Lisinopril in setting of recent FABIOLA Blood pressures stable Qualifiers: Hypertension type: essential hypertension Qualified Code(s): I10 - Essential (primary) hypertension (7) DVT prophylaxis Current Visit: Yes Status: Acute Assessment and plan: Lovenox SQ - Subjective Interval history: Patient on bipap in room. She is feeling better but still needs bipap throughout today. - Constitutional Vitals: Temp Pulse Resp BP Pulse Ox 97.8 F 87 14 90/60 96 10/02/17 11:47 10/02/17 11:47 10/02/17 11:47 10/02/17 11:47 10/02/17 11:47 General appearance: Present: cooperative, A&O X 3, pleasant, obese, answers questions appropriately Exam: Gen: no acute respiratory distress CVS: RRR Lungs: + wheezing, + rales, no rhonchi Ext: no edema Internal Medicine: Result - Labs CBC & Chem 7: 10/02/17 08:23 10/02/17 08:23 Labs: Short CBC 10/02/17 Range/Units 08:23 WBC 11.5 H (4.3-11.1) K/mcL Hgb 15.9 H (11.5-15.4) g/dL Hct 52.1 H (35.3-44.9) % Plt Count 141 (140-400) K/mcL Neutrophils # 8.4 (1.6-8.9) K/mcL BMP 10/02/17 08:23 Sodium 140 Potassium 3.5 Chloride 97 L Carbon Dioxide 44 H* BUN 28 H Creatinine 0.80 Glucose 85 Calcium 8.7 - ABG Interpretation ABG results: ABG ABG pH 7.30 pH Units (7.32-7.45) L 09/23/17 19:10 ABG pCO2 70 mmHg (35-45) H* 09/23/17 19:10 ABG pO2 62 mmHg (85-104) L 09/23/17 19:10 ABG O2 Saturation 88 % (95-98) L 09/23/17 19:10 - VTE Documentation of Mechanical Device: Graduated compression elastic hosiery Consult Discharge Plan - Plan Referrals: Soham Wheeler Jr, MD [Primary Care Provider] -
[2017-10-03] MEDS: Ipratropium/Albuterol Neb 3 ML IH SCH ×6 (03:51→22:20)
[2017-10-03] MEDS: *HR* Enoxaparin 40 MG/0.4 ML SYRINGE SQ SCH (06:02)
[2017-10-03] MEDS ORDERED: Furosemide 40 MG/4 ML VIAL IVP ONE (09:01)
[2017-10-03] MEDS: Budesonide/Formoterol 160/4.5 MDI IH SCH ×2 (09:11→22:20)
[2017-10-03 09:42] LABS: Basophils % 0.3 %; Eosinophils % 0.4 %; Hematocrit 47.9 % (35.3-44.9); Immature Granulocytes % 1.3 % (0-4); Lymphocytes # 1.3 K/mcL (0.6-4.6); Lymphocytes % 13.5 %; Mean Corpuscular HGB Conc 31.3 g/dL (31.6-35.5); Mean Corpuscular Hemoglobin 31.1 pg (28.0-33.3); Mean Corpuscular Volume 99.2 fL (83.0-100.0); Mean Platelet Volume 10.7 fL (9.4-12.4); Monocytes # 1.2 K/mcL (0.0-1.3); Neutrophils # 7.1 K/mcL (1.6-8.9); Platelet Count 135 K/mcL (140-400); Red Blood Count 4.83 M/mcL (3.82-4.97); Red Cell Distribution Width 13.3 % (11.5-14.5); Segmented Neutrophils % 72.5 %
[2017-10-03] MEDS: Furosemide 20 MG TABLET PO SCH (09:47)
[2017-10-03] MEDS: predniSONE 20 MG TABLET PO SCH (09:47)
[2017-10-03] MEDS: Doxycycline 100 MG CAPSULE PO SCH ×2 (09:48→21:01)
[2017-10-03] MEDS: Aspirin 325 MG TABLET PO SCH (09:48)
[2017-10-03 10:05] LABS: BUN/Creatinine Ratio 34 (6-26); Blood Urea Nitrogen 28 mg/dL (8-23); Calcium 8.8 mg/dL (8.6-10.3); Carbon Dioxide 42 mEq/L (23-29); Chloride 103 mEq/L (98-107); Glucose 105 mg/dL (70-105); Osmolality,Calculated 314 (280-300); Potassium 4.1 mEq/L (3.5-5.1); Sodium 149 mEq/L (136-145); eGFR For African Americans > 60 (> 60); eGFR For Non-African Americans > 60 (> 60)
--- NOTE | 2017-10-03 15:51 | Internal Med Progress Note ---
Date of Encounter: 10/03/17 Time of Encounter: 15:49 - Assessment and plan (1) Acute and chronic respiratory failure with hypercapnia Current Visit: Yes Status: Acute Assessment and plan: From COPD Exacerbation due to right sided PNA and Flu; Echocardiogram showed LVEF 65%, mild LVEF, mild LV diastolic dysfunction, mild MR, trivial pericardial effusion. Continue Levaquin/Zosyn, Tamiflu Pulmonology following, recommendations appreciated. Zosyn DC'd. start Doxycycline. Prednisone 40 PO, and discharge on 12 day taper of prednisone. Doing well [id number] test tonight Possibly home tomorrow, needs respiratory equipment set up based on results. (2) Pulmonary nodule Current Visit: Yes Status: Chronic Assessment and plan: Discovered on CTA, radiologist recommended outpatient surveillance follow up in 6-12 months (3) COPD exacerbation Current Visit: Yes Status: Acute Assessment and plan: Monitor O2 sats - IV steroids - IV levaquin, Zosyn - Duonebs (4) Hypothyroid Current Visit: Yes Status: Chronic Assessment and plan: Continue home synthroid Qualifiers: Hypothyroidism type: acquired Qualified Code(s): E03.9 - Hypothyroidism, unspecified (5) HTN (hypertension) Current Visit: Yes Status: Chronic Assessment and plan: Holding home Lisinopril in setting of recent FABIOLA Blood pressures stable Qualifiers: Hypertension type: essential hypertension Qualified Code(s): I10 - Essential (primary) hypertension (6) DVT prophylaxis Current Visit: Yes Status: Acute Assessment and plan: Lovenox SQ - Subjective Interval history: No acute issues. Has not required bipap. - Constitutional Vitals: Temp Pulse Resp BP Pulse Ox 97.9 F 70 14 99/56 94 10/03/17 15:18 10/03/17 15:18 10/03/17 15:22 10/03/17 15:18 10/03/17 15:22 General appearance: Present: cooperative, A&O X 3, pleasant, obese, answers questions appropriately Exam: Gen: no acute respiratory distress CVS: RRR Lungs: + wheezing, + rales, no rhonchi Ext: no edema Internal Medicine: Result - Labs CBC & Chem 7: 10/03/17 09:26 10/03/17 09:26 Labs: Short CBC 10/03/17 Range/Units 09:26 WBC 9.8 (4.3-11.1) K/mcL Hgb 15.0 (11.5-15.4) g/dL Hct 47.9 H (35.3-44.9) % Plt Count 135 L (140-400) K/mcL Neutrophils # 7.1 (1.6-8.9) K/mcL BMP 10/03/17 09:26 Sodium 149 H Potassium 4.1 Chloride 103 Carbon Dioxide 42 H* BUN 28 H Creatinine 0.83 Glucose 105 Calcium 8.8 - ABG Interpretation ABG results: ABG ABG pH 7.30 pH Units (7.32-7.45) L 09/23/17 19:10 ABG pCO2 70 mmHg (35-45) H* 09/23/17 19:10 ABG pO2 62 mmHg (85-104) L 09/23/17 19:10 ABG O2 Saturation 88 % (95-98) L 09/23/17 19:10 - Impressions Impressions Chest X-Ray 10/02/17 08:08 IMPRESSION: Right lower lobe infiltrate unchanged. COPD. D/ / Josemanuel Ventura MD / Josemanuel Ventura MD Interpreting Provider: Josemanuel Ventura MD - VTE Documentation of Mechanical Device: Graduated compression elastic hosiery Consult Discharge Plan - Plan Referrals: Soham Wheeler Jr, MD [Primary Care Provider] -
[2017-10-03 21:07] LABS: ABG Base Excess 10 mEq/L (-2 to 3); ABG HCO3 38 mEq/L (21-27); ABG Oxygen Saturation 93 % (95-98); ABG PCO2 62 mmHg (35-45); ABG PO2 70 mmHg (85-104); ABG TCO2 40 mEq/L (20-26)
[2017-10-04 03:53] LABS: Basophils % 0.4 %; Eosinophils % 0.2 %; Hematocrit 43.7 % (35.3-44.9); Immature Granulocytes % 2.2 % (0-4); Lymphocytes # 1.3 K/mcL (0.6-4.6); Lymphocytes % 14.2 %; Mean Corpuscular Hemoglobin 31.3 pg (28.0-33.3); Mean Corpuscular Volume 97.8 fL (83.0-100.0); Mean Platelet Volume 10.5 fL (9.4-12.4); Monocytes # 0.9 K/mcL (0.0-1.3); Monocytes % 9.8 %; Neutrophils # 6.8 K/mcL (1.6-8.9); Platelet Count 128 K/mcL (140-400); Red Blood Count 4.47 M/mcL (3.82-4.97); Red Cell Distribution Width 13.2 % (11.5-14.5); Segmented Neutrophils % 73.2 %
[2017-10-04] MEDS: Ipratropium/Albuterol Neb 3 ML IH SCH ×4 (04:09→21:52)
[2017-10-04 04:26] LABS: BUN/Creatinine Ratio 44 (6-26); Blood Urea Nitrogen 32 mg/dL (8-23); Calcium 8.4 mg/dL (8.6-10.3); Carbon Dioxide 40 mEq/L (23-29); Chloride 99 mEq/L (98-107); Glucose 87 mg/dL (70-105); Osmolality,Calculated 294 (280-300); Potassium 3.8 mEq/L (3.5-5.1); Sodium 139 mEq/L (136-145); eGFR For African Americans > 60 (> 60); eGFR For Non-African Americans > 60 (> 60)
[2017-10-04] MEDS: *HR* Enoxaparin 40 MG/0.4 ML SYRINGE SQ SCH (06:18)
--- NOTE | 2017-10-04 11:10 | Internal Med Progress Note ---
Date of Encounter: 10/04/17 Time of Encounter: 11:08 - Assessment and plan (1) Acute and chronic respiratory failure with hypercapnia Current Visit: Yes Status: Acute Assessment and plan: Undiagnosed COPD; Exacerbation due to right sided PNA and Flu. Echocardiogram showed LVEF 65%, mild LVEF, mild LV diastolic dysfunction, mild MR, trivial pericardial effusion. Completed 9 days of antibiotic, Completed Tamiflu Plan is home with oxygen, patient got tachypneic with slight ambulation, she is now requiring 5 L NC We will increase her activity. Disposition depending on clinical response. Clinically tapering Prednisone to 20 mg today. May need to increase dose if activity dose not improve. (2) COPD exacerbation Current Visit: Yes Status: Acute Assessment and plan: Monitor O2 sats - IV steroids - Completed IV levaquin, Zosyn - Duonebs (3) Pulmonary nodule Current Visit: Yes Status: Chronic Assessment and plan: Discovered on CTA, radiologist recommended outpatient surveillance follow up in 6-12 months (4) Hypothyroid Current Visit: Yes Status: Chronic Assessment and plan: Continue home synthroid Qualifiers: Hypothyroidism type: acquired Qualified Code(s): E03.9 - Hypothyroidism, unspecified (5) HTN (hypertension) Current Visit: Yes Status: Chronic Assessment and plan: Holding home Lisinopril in setting of recent FABIOLA Blood pressures stable Qualifiers: Hypertension type: essential hypertension Qualified Code(s): I10 - Essential (primary) hypertension (6) DVT prophylaxis Current Visit: Yes Status: Acute Assessment and plan: Lovenox SQ - Subjective Interval history: Did bipap study overnight 10/04: qualified for hoome bipap. Currently on 2L NC. Patient is scared if she goes home shes going to come right back. She denies chest pain, n/v, diarrhea/constipation. - Constitutional Vitals: Temp Pulse Resp BP Pulse Ox 97.9 F 93 15 112/62 93 10/04/17 10:41 10/04/17 10:41 10/04/17 10:41 10/04/17 10:41 10/04/17 10:41 General appearance: Present: cooperative, A&O X 3, pleasant, obese, answers questions appropriately Exam: Gen: no acute respiratory distress CVS: RRR Lungs: + wheezing,no rales, no rhonchi Ext: no edema Internal Medicine: Result - Labs CBC & Chem 7: 10/04/17 02:56 10/04/17 02:56 Labs: Short CBC 10/04/17 Range/Units 02:56 WBC 9.3 (4.3-11.1) K/mcL Hgb 14.0 (11.5-15.4) g/dL Hct 43.7 (35.3-44.9) % Plt Count 128 L (140-400) K/mcL Neutrophils # 6.8 (1.6-8.9) K/mcL BMP 10/04/17 02:56 Sodium 139 D Potassium 3.8 Chloride 99 Carbon Dioxide 40 H* BUN 32 H Creatinine 0.72 Glucose 87 Calcium 8.4 L - ABG Interpretation ABG results: ABG ABG pH 7.40 pH Units (7.32-7.45) 10/03/17 21:03 ABG pCO2 62 mmHg (35-45) H 10/03/17 21:03 ABG pO2 70 mmHg (85-104) L 10/03/17 21:03 ABG O2 Saturation 93 % (95-98) L 10/03/17 21:03 - VTE Documentation of Mechanical Device: Graduated compression elastic hosiery Consult Discharge Plan - Plan Referrals: Soham Wheeler Jr, MD [Primary Care Provider] - 10/08/17 9:15 am
[2017-10-04] MEDS: Budesonide/Formoterol 160/4.5 MDI IH SCH ×2 (11:18→21:52)
[2017-10-04] MEDS: Aspirin 325 MG TABLET PO SCH (12:01)
[2017-10-04] MEDS: Furosemide 20 MG TABLET PO SCH (12:02)
[2017-10-04] MEDS: predniSONE 20 MG TABLET PO SCH (12:02)
[2017-10-05] MEDS: Ipratropium/Albuterol Neb 3 ML IH SCH ×2 (04:07→11:19)
[2017-10-05 04:25] LABS: Basophils % 0.2 %; Eosinophils % 0.2 %; Hematocrit 44.1 % (35.3-44.9); Immature Granulocytes % 1.9 % (0-4); Lymphocytes # 1.6 K/mcL (0.6-4.6); Lymphocytes % 16.8 %; Mean Corpuscular HGB Conc 31.7 g/dL (31.6-35.5); Mean Corpuscular Volume 97.8 fL (83.0-100.0); Mean Platelet Volume 10.7 fL (9.4-12.4); Monocytes # 0.9 K/mcL (0.0-1.3); Monocytes % 9.4 %; Neutrophils # 6.9 K/mcL (1.6-8.9); Platelet Count 147 K/mcL (140-400); Red Blood Count 4.51 M/mcL (3.82-4.97); Red Cell Distribution Width 13.2 % (11.5-14.5); Segmented Neutrophils % 71.5 %
[2017-10-05 05:05] LABS: BUN/Creatinine Ratio 42 (6-26); Blood Urea Nitrogen 27 mg/dL (8-23); Calcium 8.5 mg/dL (8.6-10.3); Carbon Dioxide 39 mEq/L (23-29); Chloride 100 mEq/L (98-107); Glucose 89 mg/dL (70-105); Osmolality,Calculated 295 (280-300); Potassium 4.3 mEq/L (3.5-5.1); Sodium 140 mEq/L (136-145); eGFR For African Americans > 60 (> 60); eGFR For Non-African Americans > 60 (> 60)
[2017-10-05] MEDS: *HR* Enoxaparin 40 MG/0.4 ML SYRINGE SQ SCH (06:38)
[2017-10-05 06:46] VITALS: BP 99/45
[2017-10-05] MEDS: predniSONE 20 MG TABLET PO SCH (08:15)
[2017-10-05] MEDS: Furosemide 20 MG TABLET PO SCH (08:15)
[2017-10-05] MEDS: Aspirin 325 MG TABLET PO SCH (08:15)
[2017-10-05] MEDS: Budesonide/Formoterol 160/4.5 MDI IH SCH (11:18)
--- NOTE | 2017-10-05 11:51 | Discharge Summary ---
Date of Encounter: 10/05/17 Time of Encounter: 10:30 - Discharge Diagnosis (1) Acute and chronic respiratory failure Priority: Primary Status: Chronic Comments: Pt is now in a chronic steady state. Has qualified for bipap - MARIA A ruled out and CPAP tried and failed. Arrangements made for home oxygen and bipap. Qualifiers: Respiratory failure complication: hypoxia and hypercapnia Qualified Code(s) : J96.21 - Acute and chronic respiratory failure with hypoxia; J96.22 - Acute and chronic respiratory failure with hypercapnia; J96.22 - Acute and chronic respiratory failure with hypercapnia; J96.22 - Acute and chronic respiratory failure with hypercapnia (2) COPD exacerbation Priority: Secondary Status: Resolved Comments: Will discharge with oxygen, bipap and nebulizer as well as steroid taper. (3) Influenza A Priority: Secondary Status: Resolved (4) Right lower lobe pneumonia Priority: Secondary Status: Resolved Comments: Completed course of abx Qualifiers: Pneumonia type: due to unspecified organism Qualified Code(s): J18.1 - Lobar pneumonia, unspecified organism (5) Diastolic heart failure Priority: Secondary Status: Chronic Comments: Diuresed and improvedl Qualifiers: Heart failure chronicity: acute on chronic Qualified Code(s): I50.33 - Acute on chronic diastolic (congestive) heart failure (6) HTN (hypertension) Priority: Secondary Status: Chronic Qualifiers: Hypertension type: essential hypertension Qualified Code(s): I10 - Essential (primary) hypertension (7) Hypothyroid Priority: Secondary Status: Chronic Qualifiers: Hypothyroidism type: acquired Qualified Code(s): E03.9 - Hypothyroidism, unspecified (8) Pulmonary nodule Priority: Secondary Status: Chronic Comments: Follow up as outpatient. (9) FABIOLA (acute kidney injury) Priority: Secondary Status: Resolved (10) Tobacco abuse Priority: Secondary Status: Chronic - Discharge Medications Prescriptions: Ipratropium/Albuterol Neb [Duoneb] 3 ml IH [id number] #100 inhsol predniSONE [PredniSONE] 20 mg PO DAILY #11 tablet Home Medications: Albuterol Sulfate [Albuterol Inhaler] 2 puff IH Q4H PRN 09/23/17 [History] Aspirin 325 mg PO DAILY 09/23/17 [History] Atorvastatin [Lipitor] 40 mg PO HS 09/23/17 [History] Budesonide/Formoterol 160/4.5 [Symbicort 160/4.5] 2 puff IH BIDR 09/23/17 [ History] Furosemide [Lasix] 20 mg PO DAILY 09/23/17 [History] Levothyroxine Sodium 175 mcg PO QAM 09/23/17 [History] Lisinopril [Zestril] 5 mg PO BID 09/23/17 [History] Metoprolol [Lopressor] 25 mg PO BID 09/23/17 [History] Ipratropium/Albuterol Neb [Duoneb] 3 ml IH [id number] #100 inhsol 10/05/17 [Rx] predniSONE [PredniSONE] 20 mg PO DAILY #11 tablet 10/05/17 [Rx] Allergies/Adverse Reactions: 3 Allergy/AdvReac Type Severity Reaction Status Date / Time No Known Allergies Allergy Verified 09/23/17 19:12 Date of admission: 09/23/17 23:35 Primary care physician: Soham Wheeler Jr, MD Consults: 09/28/17 14:01 Consult to Pulmonology [CONS] Routine Consulting Provider: [facility] Reason for Consult: Acute respiratory failure Call Completed: Yes 10/04/17 11:54 Consult to Occupational Therapy [CONS] Routine Comment: Evaluate, develop and implement POC Reason for Consult: discharge readiness, pt states can only get up to [facility] w/ assist x1 Consult to Physical Therapy [CONS] Routine Comment: Evaluate, develop and implement POC Reason for Consult: discharge readiness, pt states can only get up to [facility] w/ assist x1 10/04/17 11:55 Consult to Occupational Therapy [CONS] Routine Comment: Evaluate, develop and implement POC Reason for Consult: Eval for ECF vs HH Consult to Physical Therapy [CONS] Routine Comment: Evaluate, develop and implement POC Reason for Consult: Eval for ECF vs HH - Patient Status Disposition: Home, Self-Care Condition: Good Functional capacity at discharge: independent ambulation Overall status at discharge: patient is progressing back to baseline - Discharge Instructions Follow Up With: Soham Wheeler Jr, MD [Primary Care Provider] - 10/08/17 9:15 am - Diet and Activity Activity: increase activity as tolerated Diet: advance to your usual diet Hospital course: Ms. Romo is a 71 year old female with hx of COPD presented to ED with dyspnea. Found to be hypoxic and was admitted with acute pneumonia and exacerbation of COPD. Ms Romo was admitted to [facility]. She was placed on IV abx for pneumonia. She was also placed on steroids and aerosols for COPD. She required bipap initially and was transitioned to high flow nasal cannula. Due to concern for heart failure contributing to symptoms she was diuresed as well. She did have a slight increase in her creatinine but this improved to baseline. Despite aggressive management she had slow resolution therefore pulmonary was consulted. Abx and steroids were continued with plan for slow taper of steroids. She was also treated with Tamiflu for positive PCR for influenza A. She continued to have slow improvement and completed both course of abx and Tamiflu. Steroids were begun to be tapered. She underwent bipap qualification and arrangements made at discharge. On 10/04 attempt was made to qualify her for home oxygen. She became very dyspneic and required high flow oxygen again. Discharge was held. On 10/05 she is much improved. She is afebrile and vitals stable. She is able to ambulate to the bathroom and around room without significant dyspnea. At this time she is felt ready for discharge home. She is aware she needs to quit smoking as well. Time spent discussing smoking cessation with patient: 3 to 10 minutes - Time Spent with Patient Total time spent providing and/or coordinating discharge services: 41min Greater than 30 minutes - Constitutional Vitals: Temp Pulse Resp BP Pulse Ox 98.1 F 63 16 99/45 92 10/05/17 06:43 10/05/17 06:43 10/05/17 11:21 10/05/17 06:43 10/05/17 11:21 General appearance: Present: cooperative, A&O X 3, pleasant, obese, answers questions appropriately - Head Head exam: Present: atraumatic, normocephalic - Eye Eye exam: Present: EOMI, conjuntiva pink - ENT ENT exam: Present: mucous membranes dry - Respiratory Respiratory exam: Present: decreased breath sounds. Absent: rales, rhonchi, wheezes - Cardiovascular Cardiovascular exam: Present: RRR. Absent: tachycardia - GI/Abdominal GI/Abdominal exam: Present: soft. Absent: tenderness - Extremities Exam Extremities exam: Present: warm. Absent: tenderness - Neurological Exam Neurological exam: Present: alert, oriented X3, no focal deficits - Psychiatric Psychiatric exam: Present: normal affect, normal mood - Skin Skin exam: Present: warm. Absent: rash - VTE Documentation of Mechanical Device: Graduated compression elastic hosiery
== END 2017-10-05 14:24 | disposition home or self-care (01) | DRG 193 ==
LOC: EMEROO 18:59 → 2NENU 18:59
PROVIDERS: ADMIT Internal Medicine; ATTEND Internal Medicine

== ENCOUNTER 2018-06-04 20:19 | Inpatient (IN) ==
[2018-06-04] MEDS ORDERED: predniSONE 20 MG TABLET PO ONE (20:31)
[2018-06-04] MEDS ORDERED: Ipratropium/Albuterol Neb 3 ML IH ONE (20:31)
--- NOTE | 2018-06-04 20:48 | Emergency Department Note ---
Disposition Clinical Impression: FABIOLA (acute kidney injury) Congestive heart failure Qualifiers: Heart failure type: unspecified Heart failure chronicity: acute on chronic Qualified Code(s): I50.9 - Heart failure, unspecified Disposition: Admitted As Inpatient Condition: Good Referrals: Soham Wheeler Jr, MD [Primary Care Provider] - Forms: ED Satisfaction Letter Time of Disposition: 22:27 General Adult HPI - General Chief complaint: ED Shortness of Breath/Dyspnea Stated complaint: COPD Exacerbation Time Seen by Provider: 06/04/18 20:33 Nursing Notes Reviewed: Yes Vital Signs Reviewed: Yes - History of Present Illness HPI Narrative: 72 year old woman with COPD and CHF history comes to the emergency department due to 3 days of increasing shortness of breath and increased yellow-green sputum production. She is ambulatory at home and uses 2-3L oxygen when she feels like she needs it and at night when she sleeps. Denies dizzyness, palpitation, fever, chills, emesis, diarehea. She feels nauseated at times. States normal appetite, oral intake, bowel, and urinary function. She smokes 1ppd and has recently cut back, denies alcohol and recreational drugs. She is unable to remember her other medical history and medications and instructs us to look in the computer for her history. She reports that she was recently admitted to the hospital approximately a month ago for same symptoms. She was placed on BiPAP at that time. She does take Lasix 40 mg a day. Pain Scale: 0 - Related Data Home Medications Medication Instructions Recorded Confirmed Albuterol Sulfate [Albuterol 2 puff IH Q4H PRN 09/23/17 03/21/18 Inhaler] Aspirin 325 mg PO DAILY 09/23/17 03/21/18 Atorvastatin [Lipitor] 40 mg PO HS 09/23/17 03/21/18 Budesonide/Formoterol 160/4.5 2 puff IH BIDR 09/23/17 03/21/18 [Symbicort 160/4.5] Furosemide [Lasix] 20 mg PO BID 09/23/17 03/21/18 Levothyroxine Sodium 175 mcg PO QAM 09/23/17 03/21/18 Lisinopril [Zestril] 5 mg PO BID 09/23/17 03/21/18 Metoprolol [Lopressor] 25 mg PO BID 09/23/17 03/21/18 Tiotropium [Spiriva] 18 mcg IH 0700 03/21/18 03/21/18 Previous Rx's Medication Instructions Recorded predniSONE [PredniSONE] 20 mg PO DAILY 14 Days #43 tablet 03/24/18 Allergies Allergy/AdvReac Type Severity Reaction Status Date / Time No Known Allergies Allergy Verified 03/21/18 07:01 Constitutional: Denies: fever, chills, weakness, weight change Eyes: Denies: eye pain, eye discharge, vision change ENT ED: Denies: ear pain, throat pain, dental pain, hearing loss, epistaxis, congestion, dysphagia Cardiovascular: Reports: as per HPI Respiratory: Reports: as per HPI, cough, dyspnea, wheezes, sputum production Genitourinary: Denies: dysuria, frequency, hematuria, discharge Musculoskeletal: Denies: back pain, neck pain, arthralgia, myalgia Integumentary: Reports: other (leg swelling) Neurological: Denies: headache, weakness, numbness, paresthesias, confusion, abnormal gait, vertigo Endocrine: Reports: as per HPI. Denies: fatigue Hematological/Lymphatic: Denies: easy bleeding, easy bruising Allergic/Immunologic: Denies: facial swelling, urticaria Past Medical History - Past Medical History Attestation: Yes The following information was validated with the patient. Source: patient, old records reviewed Medical history: Reports: COPD, myocardial infarction Surgical history: Reports: non-contributory Psychiatric history: Reports: no psych history - Social History Smoking Status: Current every day smoker Exposure to secondhand smoke: Yes Smokeless Tobacco Status: No Alcohol use: Reports: none Drug use: Reports: none Physical Exam - General Limitations: no limitations General appearance: alert, in no apparent distress, obese - Head Head exam: atraumatic, normocephalic, normal inspection - Eye Eye exam: Present: normal appearance, PERRL, EOMI - ENT ENT exam: normal exam, normal oropharynx, mucous membranes moist - Neck Neck exam: Present: normal inspection, full ROM, trachea midline - Chest Chest inspection: Present: normal inspection, symmetric chest wall rise - Respiratory Respiratory exam: Present: wheezes, other (shallow and poor effort, rhonchi) - Cardiovascular Cardiovascular exam: Present: regular rate, normal rhythm, normal heart sounds - Abdominal Exam Abdominal exam: Present: soft, Non-Tender. Absent: tenderness, distention, guarding, rebound, rigidity - Extremities Exam Extremities exam: Present: normal capillary refill, pedal edema. Absent: tenderness - Back Exam Back exam: Present: normal inspection, full ROM. Absent: tenderness - Neurological Exam Neurological exam: Present: alert, oriented X3 - Psychiatric Psychiatric exam: Present: normal affect, normal mood - Skin Skin exam: Present: warm, dry, intact, normal color Course Course Narrative: Patient does have pulmonary vascular congestion on her chest x-ray. She is maintaining oxygen saturation in the mid 90s on 3 L of oxygen however she is mildly conversationally dyspneic. She does have pitting edema to her lower extremities approximately midway upper tibias. Patient does have a reported increase in her sputum and change in her sputum. She was recently admitted a month ago for similar symptoms. We will place patient on cefepime at this time. Patient is not febrile and does not have a white blood cell count is elevated. Her BNP is 50. She does have a new a chaotic. She reports normal urination and no burning on urination. We have given her increased dose of her Lasix while she is here to help with the pulmonary vascular congestion. We will admit to the hospital for increasing shortness of breath exertional dyspnea and change in her sputum for COPD exacerbation. Patient is agreeable with this. We did discuss smoking cessation. She states that she generally does not smoke however she occasionally "bums a cigarette" from her . - Consultations Consultation #1: Dr D eLeon accepted Pt in stable condition. Time: 22:51 Vital Signs Temperature 98.2 F 06/04/18 20:26 Pulse Rate 94 06/04/18 20:26 Respiratory Rate 24 06/04/18 20:26 O2 Sat by Pulse Oximetry 84 06/04/18 20:26 Temperature 98.2 F 06/04/18 22:30 Pulse Rate 89 06/04/18 22:48 Respiratory Rate 22 06/04/18 22:48 Blood Pressure 110/46 06/04/18 22:48 O2 Sat by Pulse Oximetry 93 06/04/18 22:48 Oxygen Delivery Oxygen Delivery Nasal Cannula Medical Decision Making - Medical Records Medical records reviewed: Yes I reviewed the patient's medical records. - Lab Data Lab results reviewed: Yes I reviewed the patient's lab results. Result diagrams: 06/04/18 21:10 06/04/18 21:10 Lab Results 06/04/18 06/04/18 06/04/18 Range/Units 21:10 21:10 21:10 WBC 9.8 (4.3-11.1) K/mcL RBC 3.92 (3.82-4.97) M/mcL Hgb 12.3 (11.5-15.4) g/dL Hct 39.1 (35.3-44.9) % MCV 99.7 (83.0-100.0) fL MCH 31.4 (28.0-33.3) pg MCHC 31.5 L (31.6-35.5) g/dL RDW 14.0 (11.5-14.5) % Plt Count 172 (140-400) K/mcL MPV 10.9 (9.4-12.4) fL Immature Gran % 0.5 (0-4) % Seg Neutrophils % 68.2 % Lymphocytes % 17.4 % Monocytes % 11.9 % Eosinophils % 1.7 % Basophils % 0.3 % Neutrophils # 6.7 (1.6-8.9) K/mcL Lymphocytes # 1.7 (0.6-4.6) K/mcL Monocytes # 1.2 (0.0-1.3) K/mcL Eosinophils # 0.2 (0.0-0.6) K/mcL Basophils # 0.0 (0.0-0.2) K/mcL Sodium 139 (136-145) mEq/L Potassium 3.8 (3.5-5.1) mEq/L Chloride 97 L (98-107) mEq/L Carbon Dioxide 35 H (23-29) mEq/L BUN 26 H (8-23) mg/dL Creatinine 1.27 H (0.60-1.20) mg/dL Est GFR ( Amer) 50 L (> 60) Est GFR (Non-Af Amer) 41 L (> 60) BUN/Creatinine Ratio 20 (6-26) Glucose 110 H (70-105) mg/dL Calculated Osmolality 293 (280-300) Lactic Acid 0.8 (0.5-2.2) mmol/L Calcium 9.5 (8.6-10.3) mg/dL Troponin I < 0.03 (< 0.04) ng/mL B-Natriuretic Peptide (Less than 100) pg/mL 06/04/18 Range/Units 21:10 WBC (4.3-11.1) K/mcL RBC (3.82-4.97) M/mcL Hgb (11.5-15.4) g/dL Hct (35.3-44.9) % MCV (83.0-100.0) fL MCH (28.0-33.3) pg MCHC (31.6-35.5) g/dL RDW (11.5-14.5) % Plt Count (140-400) K/mcL MPV (9.4-12.4) fL Immature Gran % (0-4) % Seg Neutrophils % % Lymphocytes % % Monocytes % % Eosinophils % % Basophils % % Neutrophils # (1.6-8.9) K/mcL Lymphocytes # (0.6-4.6) K/mcL Monocytes # (0.0-1.3) K/mcL Eosinophils # (0.0-0.6) K/mcL Basophils # (0.0-0.2) K/mcL Sodium (136-145) mEq/L Potassium (3.5-5.1) mEq/L Chloride (98-107) mEq/L Carbon Dioxide (23-29) mEq/L BUN (8-23) mg/dL Creatinine (0.60-1.20) mg/dL Est GFR ( Amer) (> 60) Est GFR (Non-Af Amer) (> 60) BUN/Creatinine Ratio (6-26) Glucose (70-105) mg/dL Calculated Osmolality (280-300) Lactic Acid (0.5-2.2) mmol/L Calcium (8.6-10.3) mg/dL Troponin I (< 0.04) ng/mL B-Natriuretic Peptide 50 (Less than 100) pg/mL - Radiology Data Radiology results reviewed: Yes I reviewed the patient's radiology results. Chest X-Ray 06/04/18 20:31 IMPRESSION: Mild pulmonary vascular congestion. D/ / Charlie Waggoner MD / Charlie Waggoner MD Interpreting Provider: Charlie Waggoner MD - EKG Data EKG #1 EKG attestation: Yes I reviewed and interpreted this EKG. EKG results narrative: Normal sinus rhythm at a rate 83. WA interval is 139. QRS duration is 102. QT is 351. QTC is 413. No signs of acute ischemia. Good R-wave progression. No previous EKG to compare to.
[2018-06-04] MEDS ORDERED: Furosemide 40 MG/4 ML VIAL IVP ONE (20:55)
--- NOTE | 2018-06-04 21:01 | Emergency Department Note ---
Disposition Clinical Impression: Congestive heart failure Qualifiers: Heart failure type: unspecified Heart failure chronicity: acute on chronic Qualified Code(s): I50.9 - Heart failure, unspecified Disposition: Still a Patient Forms: ED Satisfaction Letter General Adult HPI - General Chief complaint: ED Shortness of Breath/Dyspnea Stated complaint: COPD Exacerbation Time Seen by Provider: 06/04/18 20:33 - History of Present Illness HPI Narrative: Attestation note: Patient was seen with the emergency medicine resident/nurse practitioner/ physician apartment assistant manager/transitional resident/medical student: Dr. Farhana Stokes I have personally performed a face to face evaluation on this patient. I have reviewed and agree with history and physical examination patient management and disposition. Briefly the salient points of the case are as follows: 72-year-old female presents by EMS for shortness breath. Decreased urine output. Fatigue and edema. She has bilateral respiratory wheezes and some slight basilar rales. She has a [id number] tobacco history recently cut down though. She uses 2 L per nasal cannula oxygen supplementation at home at night especially but increase need to use oxygen. Patient had an EKG showing sinus rhythm at 83 bpm no acute ischemic changes. Patient getting oral steroids DuoNeb's IV Lasix chest x-ray screening labs with admission anticipated. Pain Scale: 0 - Related Data Home Medications Medication Instructions Recorded Confirmed Albuterol Sulfate [Albuterol 2 puff IH Q4H PRN 09/23/17 03/21/18 Inhaler] Aspirin 325 mg PO DAILY 09/23/17 03/21/18 Atorvastatin [Lipitor] 40 mg PO HS 09/23/17 03/21/18 Budesonide/Formoterol 160/4.5 2 puff IH BIDR 09/23/17 03/21/18 [Symbicort 160/4.5] Furosemide [Lasix] 20 mg PO BID 09/23/17 03/21/18 Levothyroxine Sodium 175 mcg PO QAM 09/23/17 03/21/18 Lisinopril [Zestril] 5 mg PO BID 09/23/17 03/21/18 Metoprolol [Lopressor] 25 mg PO BID 09/23/17 03/21/18 Tiotropium [Spiriva] 18 mcg IH 0700 03/21/18 03/21/18 Previous Rx's Medication Instructions Recorded predniSONE [PredniSONE] 20 mg PO DAILY 14 Days #43 tablet 03/24/18 Allergies Allergy/AdvReac Type Severity Reaction Status Date / Time No Known Allergies Allergy Verified 03/21/18 07:01 Past Medical History - Past Medical History Medical history: Reports: COPD, myocardial infarction Surgical history: Reports: non-contributory Psychiatric history: Reports: no psych history - Social History Smoking Status: Current every day smoker Smokeless Tobacco Status: No Alcohol use: Reports: none Drug use: Reports: none Course Vital Signs Temperature 98.2 F 06/04/18 20:26 Pulse Rate 94 06/04/18 20:26 Respiratory Rate 24 06/04/18 20:26 O2 Sat by Pulse Oximetry 84 06/04/18 20:26 Temperature 98.2 F 06/04/18 20:26 Pulse Rate 94 06/04/18 20:26 Respiratory Rate 20 06/04/18 20:47 O2 Sat by Pulse Oximetry 95 06/04/18 20:47 Oxygen Delivery Oxygen Delivery Nasal Cannula
[2018-06-04 21:24] LABS: Basophils % 0.3 %; Eosinophils # 0.2 K/mcL (0.0-0.6); Eosinophils % 1.7 %; Hematocrit 39.1 % (35.3-44.9); Hemoglobin 12.3 g/dL (11.5-15.4); Immature Granulocytes % 0.5 % (0-4); Lymphocytes # 1.7 K/mcL (0.6-4.6); Lymphocytes % 17.4 %; Mean Corpuscular HGB Conc 31.5 g/dL (31.6-35.5); Mean Corpuscular Hemoglobin 31.4 pg (28.0-33.3); Mean Corpuscular Volume 99.7 fL (83.0-100.0); Mean Platelet Volume 10.9 fL (9.4-12.4); Monocytes # 1.2 K/mcL (0.0-1.3); Monocytes % 11.9 %; Neutrophils # 6.7 K/mcL (1.6-8.9); Platelet Count 172 K/mcL (140-400); Red Blood Count 3.92 M/mcL (3.82-4.97); Segmented Neutrophils % 68.2 %
[2018-06-04 21:46] LABS: BUN/Creatinine Ratio 20 (6-26); Blood Urea Nitrogen 26 mg/dL (8-23); Calcium 9.5 mg/dL (8.6-10.3); Carbon Dioxide 35 mEq/L (23-29); Chloride 97 mEq/L (98-107); Glucose 110 mg/dL (70-105); Osmolality,Calculated 293 (280-300); Potassium 3.8 mEq/L (3.5-5.1); Sodium 139 mEq/L (136-145); eGFR For Non-African Americans 41 (> 60)
[2018-06-04 21:47] LABS: Troponin I < 0.03 ng/mL (< 0.04)
[2018-06-04] MEDS ORDERED: Cefepime HCl 1,000 MG in Water for inj. (sterile) 20 ML 10 ML IVP STA (22:07)
[2018-06-05] MEDS ORDERED: Acetaminophen 325 MG TABLET PO PRN (01:56)
[2018-06-05] MEDS ORDERED: Naloxone 0.4 MG/ML INJ IVP PRN (01:56)
--- NOTE | 2018-06-05 02:13 | Internal Med History&Physical ---
<Anand Neal Duane - Last Filed: 06/05/18 04:00> Date of Encounter: 06/05/18 Time of Encounter: 02:01 Internal Medicine - H&P: HPI Chief complaint: Shortness of Breath Admitted From: Emergency Dept Plans for Post Hospital Care: Home History of present illness: Ms. Romo is a 72 year old female with a past medical history of COPD, CHF, hypertension, hyperlipidemia. She presented to the emergency department secondary to increasing shortness of breath over the last week. She also complains of change of sputum color. She denied chest pain or syncope, abdominal pain, nausea, vomiting. She is a [id number] smoker and continues to smoke up to 10 cigarettes per day. She denies alcohol or drug use. In the ED chest x-ray showed pulmonary vascular congestion, but no opacification or signs of pneumonia. EKG was sinus rhythm and normal rate. Labs significant for BNP slightly elevated above baseline and creatinine slightly elevated above baseline. White count within normal limits. Patient was given 40 mg IV Lasix and 60 mg by mouth prednisone and was admitted to the floor for suspected COPD exacerbation with possible heart failure exacerbation involvement. Past Med Surg Social Fam HX - Past Medical History Medical history: COPD, myocardial infarction Psychiatric history: no psych history - Past Surgical History Surgical History: non-contributory Additional surgical history: hemorrhoidectomy - Social History Smoking Status: Current every day smoker Packs per day: 1/2 Smokeless Tobacco Status: No Alcohol use: none Drug use: none - Family History Mother Living Status: Father Hx Family Cardiac Disorders: No Hx Family Respiratory Disorders: No Internal Medicine - H&P: Meds Albuterol Sulfate [Albuterol Inhaler] 2 puff IH Q4H PRN 09/23/17 [History] Aspirin 325 mg PO DAILY 09/23/17 [History] Atorvastatin [Lipitor] 40 mg PO HS 09/23/17 [History] Budesonide/Formoterol 160/4.5 [Symbicort 160/4.5] 2 puff IH BIDR 09/23/17 [ History] Furosemide [Lasix] 20 mg PO BID 09/23/17 [History] Levothyroxine Sodium 175 mcg PO QAM 09/23/17 [History] Lisinopril [Zestril] 5 mg PO BID 09/23/17 [History] Metoprolol [Lopressor] 25 mg PO BID 09/23/17 [History] 3 Allergy/AdvReac Type Severity Reaction Status Date / Time No Known Allergies Allergy Verified 03/21/18 07:01 All Systems PM: A 10-system review of systems was performed and is negative for pertinent findings except as documented above in the HPI. - Constitutional Constitutional: no chills, no fever(s), no weakness - Cardiovascular Cardiovascular ROS IM: dyspnea, dyspnea on exertion, edema, no chest pain, no irregular heart rhythm, no syncope - Respiratory Respiratory: cough, excessive phlegm production, change in phlegm color, no hemoptysis - Gastrointestinal Gastrointestinal: no abdominal pain, no diarrhea, no vomiting - Genitourinary Genitourinary: no urinary frequency, no urinary hesitancy, no urinary incontinence, no urinary urgency - Integumentary Integumentary IM: no new lesions - Neurological Neurological ROS: no abnormal speech, no focal weakness - Psychiatric Psychiatric: no confusion - Constitutional Vitals: Temp Pulse Resp BP Pulse Ox 98.4 F 90 15 112/66 93 06/05/18 00:01 06/05/18 00:01 06/05/18 00:01 06/05/18 00:01 06/05/18 00:01 Exam: Patient in no acute distress, alert and oriented 3 Cranial nerves II through XII intact Heart in regular rate and rhythm without murmur or gallop Lungs exhibited diffuse scattered wheezes and rhonchi without rales Abdomen obese and soft and nontender with normal bowel sounds present Bilateral lower extremities 2+ pitting edematous without wounds or skin changes Internal Med - H&P Results - Labs CBC & Chem 7: 06/04/18 21:10 06/04/18 21:10 - Assessment and plan (1) Acute respiratory failure with hypoxia Current Visit: Yes Status: Acute Assessment and plan: Patient presented for shortness of breath and change in sputum color Patient was found to be slightly hypoxic on presentation Patient has history of COPD with previous exacerbations requiring hospitalization Patient also has history of CHF with previous exacerbations Patient was placed on supplemental oxygen and received 60 mg by mouth prednisone and 40 mg IV Lasix Chest x-ray showed mild pulmonary vascular congestion, EKG sinus rhythm and normal rate White count within normal limits, troponin less than 0.03, BNP slightly elevated above baseline at 50 Physical exam positive for wheeze and rhonchi Risk for failure highly likely secondary to COPD exacerbation with unlikely CHF involvement Plan Supplemental oxygen to titrate saturation above 88% 40 mg oral prednisone daily, 750 mg levofloxacin by mouth daily Duonebs Q6H scheduled and Albuterol nebs q2H PRN Continue home Lasix 20 mg twice a day Cardiac diet with 2 L fluid restriction and strict ins and outs (2) Acute exacerbation of chronic obstructive airways disease Current Visit: Yes Status: Acute Assessment and plan: Patient has history of COPD with previous exacerbation She has a [id number] smoking history and continues to smoke Rest of plan as seen above (3) FABIOLA (acute kidney injury) Current Visit: Yes Status: Acute Assessment and plan: Patient presented with elevated creatinine of 1.27 Based on previous lab results her baseline appears to be less than 1 We will attempt to avoid nephrotoxic agents and renally dose medications Continue to monitor (4) Hypothyroid Current Visit: No Status: Chronic Assessment and plan: Patient has history of chronic hypothyroidism treated with home levothyroxine which we will continue here Qualifiers: Hypothyroidism type: acquired Qualified Code(s): E03.9 - Hypothyroidism, unspecified (5) HTN (hypertension) Current Visit: No Status: Chronic Assessment and plan: Patient has history of chronic hypertension treated with home metoprolol and lisinopril which we will continue here Qualifiers: Hypertension type: essential hypertension Qualified Code(s): I10 - Essential (primary) hypertension (6) DVT prophylaxis Current Visit: No Status: Acute Assessment and plan: 5000 units subcutaneous heparin every 8 hours (7) Diastolic congestive heart failure with preserved left ventricular function , NYHA class 2 Current Visit: Yes Status: Chronic Assessment and plan: Patient has history of diastolic heart failure with preserved ejection fraction Last echocardiogram in August 2017 showed EF of 65% with mild diastolic dysfunction She has a slight increase in lower extremity edema but physical exam is negative for signs of pleural edema However chest x-ray does show mild pulmonary vascular congestion Clinically the patient is not in CHF exacerbation She was given 40 mg IV Lasix once in the ED We will continue home dose of Lasix 20 mg by mouth twice a day We will also institute a cardiac fluid restricted diet Rest of plan as seen above - Time Spent With Patient Total time spent is greater than 50% in coordination of care (as documented) at patient's floor/unit and/or counseling patient: <Gera Davila - Last Filed: 06/05/18 06:41> Date of Encounter: 06/05/18 Time of Encounter: 05:45 - Constitutional Constitutional: no chills, no fever(s) - EENT Eyes: no blurry vision, no change in vision Ears: no ear pain, no tinnitus Nose, mouth and throat: no nasal congestion, no sinus pressure, no sore throat - Cardiovascular Cardiovascular ROS IM: dyspnea, no chest pain - Respiratory Respiratory: cough, chest congestion, excessive phlegm production, change in phlegm color, no pain with cough - Gastrointestinal Gastrointestinal: no abdominal pain, no diarrhea, no vomiting - Genitourinary Genitourinary: no dysuria, no flank pain, no hematuria - Musculoskeletal Musculoskeletal ROS IM: no arthralgias, no back pain - Integumentary Integumentary IM: no rash - Neurological Neurological ROS: no dizziness, no focal weakness, no frequent falls, no headache(s) - Psychiatric Psychiatric: no anxiety, no depression - Endocrine Endocrine IM: no polydipsia, no polyuria - Allergic/Immunologic Allergic/Immunologic: no GI upset with certain foods - Constitutional Vitals: Temp Pulse Resp BP Pulse Ox 98.0 F 69 15 107/58 94 06/05/18 03:23 06/05/18 03:23 06/05/18 03:23 06/05/18 03:23 06/05/18 03:23 General appearance: Present: cooperative, A&O X 3, pleasant, no acute distress, answers questions appropriately - Head Head exam: Present: normal inspection - Eye Eye exam: Present: EOMI, PERRL. Absent: scleral icterus - ENT ENT exam: Present: normal exam, normal oropharynx - Neck Neck exam general surgery: Present: supple - Respiratory Respiratory exam: Present: rhonchi, wheezes (rare scattered). Absent: chest wall tenderness, rales - Cardiovascular Cardiovascular exam: Present: RRR, +S1, +S2. Absent: diastolic murmur, systolic murmur - GI/Abdominal GI/Abdominal exam: Present: normal bowel sounds, soft. Absent: hepatomegaly, splenomegaly - Extremities Exam Extremities exam: Present: full ROM, warm, radial pulses palpable and symmetrical. Absent: calf tenderness, pedal edema, tenderness - Back Exam Back exam: Absent: CVA tenderness (L), CVA tenderness (R) - Skin Skin exam: Present: dry, warm Internal Med - H&P Results - Labs CBC & Chem 7: 06/05/18 04:00 06/05/18 04:00 Labs: Short CBC 06/05/18 Range/Units 04:00 WBC 9.1 (4.3-11.1) K/mcL Hgb 12.3 (11.5-15.4) g/dL Hct 39.1 (35.3-44.9) % Plt Count 182 (140-400) K/mcL Neutrophils # 8.2 (1.6-8.9) K/mcL BMP 06/05/18 04:00 Sodium 139 Potassium 4.2 Chloride 98 Carbon Dioxide 32 H BUN 28 H Creatinine 1.24 H Glucose 187 H Calcium 9.4 - EKG Data -: EKG Interpreted by Myself - EKG Data Prior EKG available for review: no EKG comments: 06/05/18 06:36 NSR; no acute ST-T changes - Diagnostic Studies Chest x-ray Status: image reviewed by me (negative) - Assessment and plan (1) Hypothyroid Current Visit: No Status: Chronic Qualifiers: Hypothyroidism type: acquired Qualified Code(s): E03.9 - Hypothyroidism, unspecified (2) HTN (hypertension) Current Visit: No Status: Chronic Qualifiers: Hypertension type: essential hypertension Qualified Code(s): I10 - Essential (primary) hypertension (3) DVT prophylaxis Current Visit: No Status: Acute (4) Acute exacerbation of chronic obstructive airways disease Current Visit: Yes Status: Acute (5) FABIOLA (acute kidney injury) Current Visit: Yes Status: Acute (6) Acute respiratory failure with hypoxia Current Visit: Yes Status: Acute (7) Diastolic congestive heart failure with preserved left ventricular function , NYHA class 2 Current Visit: Yes Status: Chronic - Time Spent With Patient Total time spent is greater than 50% in coordination of care (as documented) at patient's floor/unit and/or counseling patient: - Attending Attestation I discussed the patient [facility], past medical history, review of systems, lab data , imaging studies, and exam findings with Dr. Neal. I then saw and examined patient independently. She feels much better now than upon presentation to the ER. She still has some wheezing and cough but has improved dramatically. She has had significant wheezing, cough, and thick purulent mucus production over the last several days. She wears oxygen at home but mostly just at bedtime at bedtime. Recently, she has been using it more and more frequently and almost continuously last few days with little relief. She' s had no fevers or chills. She denies any vomiting or diarrhea. She denies any ill contacts. Despite her COPD, she continues to smoke. We will continue her on some steroids, aerosols, and some PO antibiotics. Given her quick turnaround from the ER presentation, I anticipate she will hopefully be discharged within 24 hours. Other than my comments above and noted physical exam findings, I agree with Dr. Neal's assessment and plan.
[2018-06-05] MEDS ORDERED: Albuterol 2.5 MG/3 ML NEBULIZER IH PRN (03:59)
[2018-06-05 05:12] LABS: Basophils % 0.4 %; Hematocrit 39.1 % (35.3-44.9); Hemoglobin 12.3 g/dL (11.5-15.4); Immature Granulocytes % 0.7 % (0-4); Lymphocytes # 0.6 K/mcL (0.6-4.6); Lymphocytes % 7.1 %; Mean Corpuscular HGB Conc 31.5 g/dL (31.6-35.5); Mean Corpuscular Hemoglobin 31.8 pg (28.0-33.3); Mean Platelet Volume 11.1 fL (9.4-12.4); Monocytes # 0.1 K/mcL (0.0-1.3); Monocytes % 1.4 %; Neutrophils # 8.2 K/mcL (1.6-8.9); Platelet Count 182 K/mcL (140-400); Red Blood Count 3.87 M/mcL (3.82-4.97); Red Cell Distribution Width 13.8 % (11.5-14.5); Segmented Neutrophils % 90.4 %
[2018-06-05 05:33] LABS: Calcium 9.4 mg/dL (8.6-10.3); Potassium 4.2 mEq/L (3.5-5.1)
[2018-06-05] MEDS: *HR* Heparin 5,000 UNIT/ML VIAL SQ SCH ×3 (06:01→19:50)
[2018-06-05] MEDS: Ipratropium/Albuterol Neb 3 ML IH SCH ×4 (06:22→22:38)
[2018-06-05] MEDS: levoFLOXacin 750 MG TABLET PO SCH (07:19)
[2018-06-05] MEDS: Aspirin 325 MG TABLET PO SCH (07:19)
[2018-06-05] MEDS ORDERED: Furosemide 20 MG TABLET PO SCH (08:00)
[2018-06-05] MEDS ORDERED: predniSONE 20 MG TABLET PO SCH (09:00)
[2018-06-05] MEDS ORDERED: Budesonide/Formoterol 160/4.5 1 PUFF INH IH SCH (10:00)
--- NOTE | 2018-06-05 11:35 | Event Note ---
Date of Encounter: 06/05/18 Time of Encounter: 11:27 Patient seen and examined at bedside. Patient had no acute overnight events. Patient admitted this morning H&P assessment and plan reviewed and I agree. -She should not presented with acute hypoxic respiratory failure secondary to acute exacerbation of COPD and suspected bronchitis. Patient also had pulmonary edema seen on x-ray and IV Lasix was given in the emergency department. -Patient was started on steroids and IV Levaquin which will continue for now. -Patient also found to have mild acute kidney injury; creatinine slightly improved now -We will monitor a.m. BMP and avoid nephrotoxins will hold lisinopril for now; patient denies any orthopnea or paroxysmal nocturnal dyspnea admits to dyspnea on exertion; no JVD seen on exam; will hold Lasix for now and check a.m. BMP -We will check 2-D echocardiogram -Continue supplemental oxygen currently requiring 5 L and wean as tolerated
[2018-06-05] MEDS: methylPREDNISolone 125 MG/2 ML VIAL IVP SCH ×3 (12:54→23:37)
[2018-06-06 00:44] LABS: Adenovirus Not Detected (Not Detect); Bordetella Pertussis Not Detected (Not Detect); Chlamydophila pneumoniae Not Detected (Not Detect); Coronavirus 229E Not Detected (Not Detect); Coronavirus HKU1 Not Detected (Not Detect); Coronavirus NL63 Not Detected (Not Detect); Coronavirus OC43 Not Detected (Not Detect); Human Metapneumovirus Not Detected (Not Detect); Human Rhinovirus/Enterovirus Not Detected (Not Detect); Influenza A Subtype 2009 H1 Not Detected (Not Detect); Influenza A Untypeable Not Detected (Not Detect); Influenza B Not Detected (Not Detect); Mycoplasma pneumoniae Not Detected (Not Detect); Parainfluenza Virus 1 Not Detected (Not Detect); Parainfluenza Virus 2 Not Detected (Not Detect); Parainfluenza Virus 3 Not Detected (Not Detect); Parainfluenza Virus 4 Not Detected (Not Detect); Respiratory Syncytial Virus Not Detected (Not Detect)
[2018-06-06] MEDS: Ipratropium/Albuterol Neb 3 ML IH SCH ×4 (03:44→21:54)
[2018-06-06 05:17] LABS: Basophils % 0.2 %; Hematocrit 39.8 % (35.3-44.9); Hemoglobin 12.1 g/dL (11.5-15.4); Immature Granulocytes % 1.7 % (0-4); Lymphocytes # 1.2 K/mcL (0.6-4.6); Lymphocytes % 10.9 %; Mean Corpuscular HGB Conc 30.4 g/dL (31.6-35.5); Mean Corpuscular Hemoglobin 30.9 pg (28.0-33.3); Mean Corpuscular Volume 101.8 fL (83.0-100.0); Mean Platelet Volume 11.1 fL (9.4-12.4); Monocytes # 0.3 K/mcL (0.0-1.3); Monocytes % 2.9 %; Neutrophils # 8.9 K/mcL (1.6-8.9); Platelet Count 207 K/mcL (140-400); Red Blood Count 3.91 M/mcL (3.82-4.97); Red Cell Distribution Width 13.8 % (11.5-14.5); Segmented Neutrophils % 84.3 %
[2018-06-06 05:39] LABS: Calcium 10.1 mg/dL (8.6-10.3); Potassium 4.4 mEq/L (3.5-5.1)
[2018-06-06] MEDS: *HR* Heparin 5,000 UNIT/ML VIAL SQ SCH ×3 (05:54→20:31)
[2018-06-06] MEDS: methylPREDNISolone 125 MG/2 ML VIAL IVP SCH ×2 (05:54→12:46)
[2018-06-06] MEDS: levoFLOXacin 750 MG TABLET PO SCH (08:51)
[2018-06-06] MEDS: Aspirin 325 MG TABLET PO SCH (08:51)
--- NOTE | 2018-06-06 08:52 | Internal Med Progress Note ---
<Oumou Dang - Last Filed: 06/06/18 15:49> Hospitalist Progress Note - Encounter Date of Encounter: 06/06/18 - Exam Vitals: Temp Pulse Resp BP Pulse Ox 98.5 F 108 16 106/53 98 06/06/18 14:57 06/06/18 14:57 06/06/18 14:57 06/06/18 14:57 06/06/18 14:57 - Assessment and Plan (1) Hypothyroid Current Visit: No Status: Chronic (2) HTN (hypertension) Current Visit: No Status: Chronic (3) DVT prophylaxis Current Visit: No Status: Acute (4) Acute exacerbation of chronic obstructive airways disease Current Visit: Yes Status: Acute (5) FABIOLA (acute kidney injury) Current Visit: Yes Status: Acute (6) Acute respiratory failure with hypoxia Current Visit: Yes Status: Acute (7) Diastolic congestive heart failure with preserved left ventricular function , NYHA class 2 Current Visit: Yes Status: Chronic - Time Spent with Patient Total time spent is greater than 50% in coordination of care (as documented) at patient's floor/unit and/or counseling patient: Internal Medicine: Result - Labs CBC & Chem 7: 06/06/18 04:05 06/06/18 04:05 Labs: Short CBC 06/06/18 Range/Units 04:05 WBC 10.5 (4.3-11.1) K/mcL Hgb 12.1 (11.5-15.4) g/dL Hct 39.8 (35.3-44.9) % Plt Count 207 (140-400) K/mcL Neutrophils # 8.9 (1.6-8.9) K/mcL BMP 06/06/18 04:05 Sodium 142 Potassium 4.4 Chloride 99 Carbon Dioxide 38 H BUN 46 H Creatinine 1.55 H Glucose 192 H Calcium 10.1 - Impressions Impressions Echocardiogram 06/06/18 11:32 Impressions: LVEF 60-65%. Normal LV chamber size and function. Mild concentric left ventricular hypertrophy. Indeterminate diastolic function. Normal right ventricular structure and function. No evidence of pulmonary hypertension. Consult Discharge Plan - Plan Referrals: Soham Wheeler Jr, MD [Primary Care Provider] - 06/13/18 10:00 am - Attending Attestation I examined this patient and my medical decision-making was reviewed with the Resident Physician Dr Mondragon I agree with the documented findings, disposition and treatment plan as described except to the extent set forth below. Ms Romo was admitted with progressive sob. she has a history of chf, copd and htn. She is being worked up and treated for possible chf exacerbation and copd exacerbation. She is noted to have FABIOLA Awake, family present. Overall improved from admission. Any le edema is resolved. + cough with yellow sputum which is different thatn baseline. + sob, + wheezing, denies orthopnea, denies cp, palpitations, chest pressure. no recent travel , immobilization, calf pain or unequl leg swelling. Notes difficulty keeping up o2 sats at times. Has nocturnal o2 at home. Denies fevers or chills. gen- alert, awake,appears stated age eyes- pupils equal round , no ocnjunctival pallor cv- reg rate and rhythm, normal s1,s2, no murmurs appreciated, no le edema, no jvd lungs- difuse expiratory wheezing, no rhonchi or crackles, normal resp effort on o2 nc abd- soft, non tender, non distended, + bs neuro- AAOx3 Acte on chronic resp failure as evidenced by increased oxygen requirement from home o2 requirement 2L intermittently and nocturnally likely 2/2 COPD exacerbation, if she did have mild acute on chronic diastolic HF exacerbtion, it is resolved at time of this examine s/p iv lasix, history not c/w PE, trop and ekg unremarkable for acs -cont supplemental o2 nc prn to keep o2 sats >92% -treatment of copd exacerbation as below COPD exacerbation as evidenced by increased sputum production with color change , increased o2 requirement CXR with mild pulm vasc congestion, no focal consolidation or effusions, rvp neg -cont levaquin, iv steroids and taper, duonebs, prn o2, home symbicort Possible Acute on Chronic diastolic CHF on admission, now appears resolved, bnp 50 and mildly elevated from baseline, le edema on presentation now resolved, CXR with mild pulm vasc congestion -s/p IV lasix with resolution of le edema, no crackles -given fabiola and physical exam hold further diuresis, cont other home meds asa, statin, BB, hold lisinopril given fabiola, monitor for overload -echo ef 60-65%, indeterminant diastolic dysfunction, no pulm htn FABIOLA with increased creat, particularly post lasix -hold further diuresis, avoid nephro toxins, cont to hold lisinopril and monitor , if requires ivf would give gentle hydration given chf history and presentation , check ua and monitor if having any urinary retention <Campbell Mondragon - Last Filed: 06/06/18 16:30> Hospitalist Progress Note - Encounter Date of Encounter: 06/06/18 Time of Encounter: 13:00 - Subjective Interval History: Patient was seen and examined up and since morning. Overall she states she is doing well with improvement of her shortness of breath. She denies any symptoms of fevers, chills but does admit to a cough with thick yellow/green sputum production. She denies any symptoms of chest pain, palpitations. She also does admit to orthopnea which is chronic for her. She is not having any lower extremity swelling at this time and has not noticed any wheezing. - Exam Vitals: Temp Pulse Resp BP Pulse Ox 98.4 F 76 16 101/60 94 06/06/18 06:48 06/06/18 06:48 06/06/18 06:48 06/06/18 06:48 06/06/18 06:48 Exam: Gen.: Vitals noted. No acute distress. AAOx3 HEENT: PERRL/EOMI, oropharynx clear, Normocephalic, atraumatic, mildly dry mucous membranes Cardiac: RRR, no murmur, +S1/S2 Pulmonary: Scant wheezes more prominent on left. equal chest expansion, no respiratory distress, speaking in full sentences on 4 liters nasal cannula Abdomen: soft, nontender, BS noted, no guarding, no rebound. MSK: ROM intact, no joint swelling noted Extremities: no BLE edema, nontender calf, no cyanosis or clubbing Neuro: A&Ox3, moves all extremities, no focal deficits Psych: Appropriate mood and behavior - Assessment and Plan (1) Acute and chronic respiratory failure Current Visit: No Status: Chronic Assessment and Plan: Patient presented for shortness of breath and change in sputum color Patient was found to be slightly hypoxic on presentation. Does use home oxygen of 2 L intermittently Patient has history of COPD with previous exacerbations requiring hospitalization. She does report increasing use of her home inhalers Patient also has history of CHF with previous exacerbations Chest x-ray showed mild pulmonary vascular congestion, EKG sinus rhythm and normal rate White count within normal limits, troponin less than 0.03, BNP slightly elevated above baseline at 50 Respiratory infection panel negative Currently tolerating 4 L of high flow nasal cannula. Scant wheezing on exam today, presumably improved from previous -- At this time it is my opinion that this more likely reflects a COPD exacerbation. Although is difficult to say as she is clinically improved with both diuresis as well as breathing treatments, steroids, antibiotic. Plan Supplemental oxygen to titrate saturation above 88% We will decrease steroids to 40 mg IV twice a day today, and then transition to prednisone 40 mg by mouth twice a day tomorrow Duonebs Q6H scheduled and Albuterol nebs q2H PRN. Continue Levaquin, day #2 We will hold Lasix at this time given worsening kidney function as below Cardiac diet with 2 L fluid restriction and strict ins and outs (2) FABIOLA (acute kidney injury) Current Visit: Yes Status: Acute Assessment and Plan: Patient presented with elevated creatinine of 1.27 - Baseline creatinine does appear to be around 0.9 - Most recent kidney function includes BUNs/creatinine of 46/1.55, worsening from previous of 1.24 - We will hold Lasix at this time as she appears clinically dry - Consider IV hydration if no improvement - Likely etiology at this time is over diuresis and medication side effect - We will obtain urinalysis as well as bladder scan to rule out alternative etiologies We will attempt to avoid nephrotoxic agents and renally dose medications Continue to monitor (3) Hypothyroid Current Visit: Yes Status: Chronic Assessment and Plan: Continue home medications Patient is asymptomatic (4) HTN (hypertension) Current Visit: Yes Status: Chronic Assessment and Plan: Has been well-controlled since admission on home medications Most recent blood pressure 106/53 Continue monitor as she has been on diuretic therapy (5) Acute exacerbation of chronic obstructive airways disease Current Visit: Yes Status: Acute Assessment and Plan: Patient has history of COPD with previous exacerbation She has a [id number] smoking history and continues to smoke I did encourage smoking cessation during interview today and patient states that she will be quitting starting on admission Rest of plan as seen above (6) Diastolic congestive heart failure with preserved left ventricular function , NYHA class 2 Current Visit: Yes Status: Chronic Assessment and Plan: - Patient has history of diastolic heart failure with preserved ejection fraction - Last echocardiogram in August 2017 showed EF of 65% with mild diastolic dysfunction - She has been receiving diuresis with Lasix 20 mg twice a day - Unclear if dyspnea is secondary to CHF versus more likely in my opinion COPD exacerbation - Chest x-ray on admission did so evidence of mild pulmonary vascular congestion - Clinically the patient has improved in her dyspnea as well as cough. Plan - Repeat echocardiogram performed today, pending results - We will discontinue Lasix at this time as she is having worsening kidney function - Consider gentle IV fluid hydration in the future if kidney function continues to increase - We will encourage diet and continue to monitor. (7) DVT prophylaxis Current Visit: Yes Status: Acute Assessment and Plan: 5000 units subcutaneous heparin every 8 hours - Time Spent with Patient Total time spent is greater than 50% in coordination of care (as documented) at patient's floor/unit and/or counseling patient: Internal Medicine: Result - Labs CBC & Chem 7: 06/06/18 04:05 06/06/18 04:05 Labs: Short CBC 06/06/18 Range/Units 04:05 WBC 10.5 (4.3-11.1) K/mcL Hgb 12.1 (11.5-15.4) g/dL Hct 39.8 (35.3-44.9) % Plt Count 207 (140-400) K/mcL Neutrophils # 8.9 (1.6-8.9) K/mcL BMP 06/06/18 04:05 Sodium 142 Potassium 4.4 Chloride 99 Carbon Dioxide 38 H BUN 46 H Creatinine 1.55 H Glucose 192 H Calcium 10.1 <Oumou Dang - Last Filed: 06/06/18 15:49> (1) Hypothyroid Qualifiers: Hypothyroidism type: acquired Qualified Code(s): E03.9 - Hypothyroidism, unspecified (2) HTN (hypertension) Qualifiers: Hypertension type: essential hypertension Qualified Code(s): I10 - Essential (primary) hypertension <Campbell Mondragon - Last Filed: 06/06/18 16:30> (1) Acute and chronic respiratory failure Qualifiers: Respiratory failure complication: hypoxia and hypercapnia Qualified Code(s): J96.21 - Acute and chronic respiratory failure with hypoxia; J96.22 - Acute and chronic respiratory failure with hypercapnia; J96.22 - Acute and chronic respiratory failure with hypercapnia; J96.22 - Acute and chronic respiratory failure with hypercapnia (3) Hypothyroid Qualifiers: Hypothyroidism type: acquired Qualified Code(s): E03.9 - Hypothyroidism, unspecified (4) HTN (hypertension) Qualifiers: Hypertension type: essential hypertension Qualified Code(s): I10 - Essential (primary) hypertension
[2018-06-06 18:20] LABS: Calcium 10.1 mg/dL (8.6-10.3)
[2018-06-06] MEDS ORDERED: MethylPREDNISolone 40 MG/ML VIAL IVP ONE (21:00)
[2018-06-07] MEDS: Ipratropium/Albuterol Neb 3 ML IH SCH ×4 (03:54→21:43)
[2018-06-07] MEDS: *HR* Heparin 5,000 UNIT/ML VIAL SQ SCH ×3 (05:43→22:04)
[2018-06-07] MEDS: Aspirin 325 MG TABLET PO SCH (08:24)
[2018-06-07] MEDS: levoFLOXacin 750 MG TABLET PO SCH (08:24)
[2018-06-07] MEDS: predniSONE 20 MG TABLET PO SCH ×2 (08:27→17:10)
--- NOTE | 2018-06-07 13:55 | Internal Med Progress Note ---
<Campbell Mondragon - Last Filed: 06/07/18 18:06> Hospitalist Progress Note - Encounter Date of Encounter: 06/07/18 Time of Encounter: 13:55 - Subjective Interval History: Patient was seen and examined up and since morning. Overall she states she is doing well with improvement of her shortness of breath and cough. She denies any symptoms of fevers, chills. Her cough is non productive today. She denies any symptoms of chest pain, palpitations. She also does admit to orthopnea which is chronic for her. She is not having any lower extremity swelling at this time and has not noticed any wheezing. - Exam Vitals: Temp Pulse Resp BP Pulse Ox 97.9 F 95 18 121/66 93 06/07/18 11:05 06/07/18 11:05 06/07/18 11:05 06/07/18 11:05 06/07/18 11:05 Exam: Gen.: Vitals noted. No acute distress. AAOx3 HEENT: PERRL/EOMI, oropharynx clear, Normocephalic, atraumatic, mildly dry mucous membranes Cardiac: RRR, no murmur, +S1/S2 Pulmonary: Wheezes more prominent on left equal chest expansion, no respiratory distress, speaking in full sentences on 6 liters nasal cannula Abdomen: soft, nontender, BS noted, no guarding, no rebound. MSK: ROM intact, no joint swelling noted Extremities: no BLE edema, nontender calf, no cyanosis or clubbing Neuro: A&Ox3, moves all extremities, no focal deficits Psych: Appropriate mood and behavior - Assessment and Plan (1) Acute respiratory failure with hypoxia Current Visit: Yes Status: Acute Assessment and Plan: Patient presented for shortness of breath and change in sputum color Patient was found to be slightly hypoxic on presentation Patient has history of COPD with previous exacerbations requiring hospitalization. She does report increasing use of her home inhalers Patient also has history of CHF with previous exacerbations Chest x-ray showed mild pulmonary vascular congestion, EKG sinus rhythm and normal rate White count within normal limits, troponin less than 0.03, BNP slightly elevated above baseline at 50 Currently tolerating 6 L of high flow nasal cannula. Scant wheezing on exam today, presumably improved from previous -- At this time it is my opinion that this more likely reflects a COPD exacerbation. Although is difficult to say as she is clinically improved with both diuresis as well as breathing treatments, steroids, antibiotic. Plan Supplemental oxygen to titrate saturation above 88% Continue prednisone 40 mg by mouth twice a day tomorrow as she is still wheezing on my exam, unchanged from previous Duonebs Q6H scheduled and Albuterol nebs q2H PRN Continue levaquin We will hold Lasix at this time given worsening kidney function as below Cardiac diet with 2 L fluid restriction and strict ins and outs Consider mucinex if no improvement of cough. (2) Hypothyroid Current Visit: Yes Status: Chronic Assessment and Plan: Continue home medications Patient is asymptomatic (3) HTN (hypertension) Current Visit: Yes Status: Chronic Assessment and Plan: Has been well-controlled since admission on home medications Most recent blood pressure 121/68 Continue monitor as she has been on diuretic therapy (4) Acute exacerbation of chronic obstructive airways disease Current Visit: Yes Status: Acute Assessment and Plan: Patient has history of COPD with previous exacerbation She has a [id number] smoking history and continues to smoke I did encourage smoking cessation during interview today and patient states that she will be quitting starting on admission Rest of plan as seen above (5) FABIOLA (acute kidney injury) Current Visit: Yes Status: Acute Assessment and Plan: Patient presented with elevated creatinine of 1.27 - Baseline creatinine does appear to be around 0.9 - Most recent kidney function includes BUNs/creatinine of 41/1.18, improved from 1.55 Cr - We will hold Lasix at this time as she appears clinically dry - Consider IV hydration if no improvement - Likely etiology at this time is over diuresis and medication side effect - We will obtain urinalysis as well as bladder scan to rule out alternative etiologies We will attempt to avoid nephrotoxic agents and renally dose medications Continue to monitor (6) DVT prophylaxis Current Visit: Yes Status: Acute Assessment and Plan: 5000 units subcutaneous heparin every 8 hours (7) Diastolic congestive heart failure with preserved left ventricular function , NYHA class 2 Current Visit: Yes Status: Chronic Assessment and Plan: - Patient has history of diastolic heart failure with preserved ejection fraction - Last echocardiogram in August 2017 showed EF of 65% with mild diastolic dysfunction. Repeat Echo on 06/06 unchanged. - She has been receiving diuresis with Lasix 20 mg twice a day, stopped 06/06. - I/O have been essentially even - Unclear if dyspnea is secondary to CHF versus more likely in my opinion COPD exacerbation - Chest x-ray on admission did so evidence of mild pulmonary vascular congestion - Clinically the patient has improved in her dyspnea as well as cough. Plan - We continue holding Lasix at this time as she is having worsening kidney function - Consider gentle IV fluid hydration in the future if kidney function continues to increase. Will continue to monitor for now. - We will encourage diet and continue to monitor. - Time Spent with Patient Total time spent is greater than 50% in coordination of care (as documented) at patient's floor/unit and/or counseling patient: Internal Medicine: Result - Labs CBC & Chem 7: 06/06/18 04:05 06/07/18 16:32 Labs: BMP 06/06/18 17:19 Sodium 143 Potassium 5.0 Chloride 103 Carbon Dioxide 39 H BUN 46 H Creatinine 1.31 H Glucose 139 H Calcium 10.1 Consult Discharge Plan - Plan Referrals: Soham Wheeler Jr, MD [Primary Care Provider] - 06/13/18 10:00 am <Shmuel Turner - Last Filed: 06/07/18 18:53> Hospitalist Progress Note - Encounter Date of Encounter: 06/07/18 - Exam Vitals: Temp Pulse Resp BP Pulse Ox 98.0 F 83 18 121/68 96 06/07/18 15:47 06/07/18 15:47 06/07/18 15:47 06/07/18 15:47 06/07/18 15:47 - Assessment and Plan (1) Hypothyroid Current Visit: Yes Status: Chronic (2) HTN (hypertension) Current Visit: Yes Status: Chronic (3) DVT prophylaxis Current Visit: Yes Status: Acute (4) Acute exacerbation of chronic obstructive airways disease Current Visit: Yes Status: Acute (5) FABIOLA (acute kidney injury) Current Visit: Yes Status: Acute (6) Acute respiratory failure with hypoxia Current Visit: Yes Status: Acute (7) Diastolic congestive heart failure with preserved left ventricular function , NYHA class 2 Current Visit: Yes Status: Chronic - Time Spent with Patient Total time spent is greater than 50% in coordination of care (as documented) at patient's floor/unit and/or counseling patient: Internal Medicine: Result - Labs CBC & Chem 7: 06/06/18 04:05 06/07/18 16:32 Labs: BMP 06/07/18 16:32 Sodium 144 Potassium 4.9 Chloride 102 Carbon Dioxide 39 H BUN 42 H Creatinine 1.18 Glucose 130 H Calcium 10.3 - Attending Attestation I examined this patient and my medical decision-making was reviewed with the Resident Physician on 06/07/18. I agree with the documented findings, disposition and treatment plan as described except to the extent set forth below. Ms Romo is currently admitted for acute exac COPD. She remains moderate to high risk due to potential for worsening clinical status. Ms Romo is beginning to feel somewhat better. She is less dyspneic. No fever or chills. No CP at this time. No GI issues. Exam alert Comfortable in bed at this time Mucus membranes dry Heart reg and not tachy Diffuse end exp wheeze heard Abd soft and nontender No edema I/P 1. Exac COPD Further diagnoses and plan as above. <Campbell Mondragon - Last Filed: 06/07/18 18:06> (2) Hypothyroid Qualifiers: Hypothyroidism type: acquired Qualified Code(s): E03.9 - Hypothyroidism, unspecified (3) HTN (hypertension) Qualifiers: Hypertension type: essential hypertension Qualified Code(s): I10 - Essential (primary) hypertension <Shmuel Turner - Last Filed: 06/07/18 18:53> (1) Hypothyroid Qualifiers: Hypothyroidism type: acquired Qualified Code(s): E03.9 - Hypothyroidism, unspecified (2) HTN (hypertension) Qualifiers: Hypertension type: essential hypertension Qualified Code(s): I10 - Essential (primary) hypertension
[2018-06-07 17:06] LABS: Calcium 10.3 mg/dL (8.6-10.3); Potassium 4.9 mEq/L (3.5-5.1)
--- NOTE | 2018-06-07 17:35 | Electrocardiograph Report ---
[address] [place] [address] Test Date: 2018-06-04 Pat Name: Jonnie Romo Department: EXAM8 Room: 3B Gender: F Inter Com Servicer: : [id number] Requested By: Alphonso Clarke Order Number: [id number] Reading MD: Alvin Wild Measurements Intervals [place] Rate: 83 P: 77 MD: 139 QRS: 55 QRSD: 102 T: 33 QT: 351 QTc: 413 Interpretive Statements Sinus rhythm Electronically Signed On 06-07-2018 17:33:42 EDT by Alvin Wild
[2018-06-08 02:25] LABS: Bilirubin,Urine Negative (Negative); Blood,Urine Negative (Negative); Clarity,Urine Clear (Clear); Color,Urine Yellow (Yellow); Glucose,Urine (UA) Normal (Normal); Ketones,Urine Negative (Negative); Leukocyte Esterase,Urine Negative (Negative); Nitrite,Urine Negative (Negative); PH,Urine 5.5 pH Units (5.0-8.0); Protein,Urine Negative (Neg-Trace); Specific Gravity,Urine > 1.030 (1.010-1.025); Urobilinogen,Urine Normal (Normal)
[2018-06-08] MEDS: Ipratropium/Albuterol Neb 3 ML IH SCH ×4 (03:40→21:37)
[2018-06-08] MEDS: *HR* Heparin 5,000 UNIT/ML VIAL SQ SCH ×3 (05:47→21:58)
[2018-06-08 05:51] LABS: Basophils # 0.1 K/mcL (0.0-0.2); Basophils % 0.5 %; Hematocrit 39.9 % (35.3-44.9); Hemoglobin 11.9 g/dL (11.5-15.4); Immature Granulocytes % 4.3 % (0-4); Lymphocytes # 1.1 K/mcL (0.6-4.6); Lymphocytes % 11.1 %; Mean Corpuscular HGB Conc 29.8 g/dL (31.6-35.5); Mean Corpuscular Volume 103.9 fL (83.0-100.0); Mean Platelet Volume 10.6 fL (9.4-12.4); Monocytes # 0.9 K/mcL (0.0-1.3); Monocytes % 9.2 %; Neutrophils # 7.1 K/mcL (1.6-8.9); Platelet Count 219 K/mcL (140-400); Red Blood Count 3.84 M/mcL (3.82-4.97); Red Cell Distribution Width 13.7 % (11.5-14.5); Segmented Neutrophils % 74.9 %
[2018-06-08 07:13] LABS: BUN/Creatinine Ratio 35 (6-26); Blood Urea Nitrogen 37 mg/dL (8-23); Calcium 9.9 mg/dL (8.6-10.3); Carbon Dioxide 41 mEq/L (23-29); Chloride 105 mEq/L (98-107); Glucose 142 mg/dL (70-105); Osmolality,Calculated 311 (280-300); Potassium 5.3 mEq/L (3.5-5.1); Sodium 145 mEq/L (136-145); eGFR For Non-African Americans 51 (> 60)
[2018-06-08] MEDS: predniSONE 20 MG TABLET PO SCH (09:18)
[2018-06-08] MEDS: levoFLOXacin 750 MG TABLET PO SCH (09:18)
[2018-06-08] MEDS: Aspirin 325 MG TABLET PO SCH (09:18)
--- NOTE | 2018-06-08 09:54 | Internal Med Progress Note ---
<Campbell Mondragon - Last Filed: 06/08/18 18:17> Hospitalist Progress Note - Encounter Date of Encounter: 06/08/18 Time of Encounter: 10:30 - Subjective Interval History: Patient was seen and examined up and since morning. Overall she states she is doing well with improvement of her shortness of breath and cough. She denies any symptoms of fevers, chills. Her cough is non productive today. Cough is improving however she still does have fits of hacking cough which she cannot seem to get phlegm to come up. She denies any symptoms of chest pain, palpitations. She also does admit to orthopnea which is chronic for her. She is not having any lower extremity swelling at this time and has not noticed any wheezing. - Exam Vitals: Temp Pulse Resp BP Pulse Ox 97.8 F 92 22 120/68 89 06/08/18 09:43 06/08/18 09:43 06/08/18 09:43 06/08/18 09:43 06/08/18 09:43 Exam: Gen.: Vitals noted. No acute distress. AAOx3 HEENT: PERRL/EOMI, oropharynx clear, Normocephalic, atraumatic, moist mucous membranes Cardiac: RRR, no murmur, +S1/S2 Pulmonary: Scattered rhonchi, more prominent in bases. No wheezing appreciated. equal chest expansion, no respiratory distress, speaking in full sentences on 4 liters nasal cannula Abdomen: soft, nontender, BS noted, no guarding, no rebound. MSK: ROM intact, no joint swelling noted Extremities: no BLE edema, nontender calf, no cyanosis or clubbing Neuro: A&Ox3, moves all extremities, no focal deficits Psych: Appropriate mood and behavior - Assessment and Plan (1) Acute and chronic respiratory failure Current Visit: No Status: Chronic Assessment and Plan: Patient presented for shortness of breath and change in sputum color Patient was found to be slightly hypoxic on presentation Patient has history of COPD with previous exacerbations requiring hospitalization. She does report increasing use of her home inhalers. Reports 3 L home oxygen intermittently Patient also has history of CHF with previous exacerbations Chest x-ray showed mild pulmonary vascular congestion, EKG sinus rhythm and normal rate White count within normal limits, troponin less than 0.03, BNP slightly elevated above baseline at 50 Currently tolerating 4 L of high flow nasal cannula. Wheezing improved. Continues to improve on steroids, Levaquin, breathing treatments. Clinically improving oxygen demands decreasing near baseline Plan Supplemental oxygen to titrate saturation above 88% Continue to decrease prednisone to 40 mg daily Duonebs Q6H scheduled and Albuterol nebs q2H PRN Continue levaquin, day #4 Continue to hold Lasix at this time given worsening kidney function as below Cardiac diet with 2 L fluid restriction and strict ins and outs Add Mucinex today for symptomatic improvement (2) Hypothyroid Current Visit: Yes Status: Chronic Assessment and Plan: Continue home medications Patient is asymptomatic (3) HTN (hypertension) Current Visit: Yes Status: Chronic Assessment and Plan: Has been well-controlled since admission on home medications Most recent blood pressure 114/64 Continue monitor as she has been on diuretic therapy (4) Acute exacerbation of chronic obstructive airways disease Current Visit: Yes Status: Acute Assessment and Plan: Patient has history of COPD with previous exacerbation She has a [id number] smoking history and continues to smoke I did encourage smoking cessation during interview today and patient states that she will be quitting starting on admission Rest of plan as seen above (5) FABIOLA (acute kidney injury) Current Visit: Yes Status: Acute Assessment and Plan: Improving Patient presented with elevated creatinine of 1.27 - Baseline creatinine does appear to be around 0.9 - Most recent kidney function includes BUNs/creatinine of 37/1.07, improved from 1.18, 1.5 after stopping diuresis - We will continue to hold Lasix at this time this appears to be more likely COPD exacerbation - Likely etiology at this time is over diuresis and medication side effect We will attempt to avoid nephrotoxic agents and renally dose medications Continue to monitor (6) DVT prophylaxis Current Visit: Yes Status: Acute Assessment and Plan: 5000 units subcutaneous heparin every 8 hours (7) Diastolic congestive heart failure with preserved left ventricular function , NYHA class 2 Current Visit: Yes Status: Chronic Assessment and Plan: - Patient has history of diastolic heart failure with preserved ejection fraction - Last echocardiogram in August 2017 showed EF of 65% with mild diastolic dysfunction. Repeat Echo on 06/06 unchanged. - She has been receiving diuresis with Lasix 20 mg twice a day, stopped 06/06. - I/O have been essentially even - Unclear if dyspnea is secondary to CHF versus more likely in my opinion COPD exacerbation - Chest x-ray on admission did so evidence of mild pulmonary vascular congestion - Clinically the patient has improved in her dyspnea as well as cough. Plan - We continue holding Lasix at this time as she is having worsening kidney function - Consider gentle IV fluid hydration in the future if kidney function continues to increase. Will continue to monitor for now. - We will encourage diet and continue to monitor. - Time Spent with Patient Total time spent is greater than 50% in coordination of care (as documented) at patient's floor/unit and/or counseling patient: Internal Medicine: Result - Labs CBC & Chem 7: 06/08/18 05:16 06/08/18 05:16 Labs: Short CBC 06/08/18 Range/Units 05:16 WBC 9.4 (4.3-11.1) K/mcL Hgb 11.9 (11.5-15.4) g/dL Hct 39.9 (35.3-44.9) % Plt Count 219 (140-400) K/mcL Neutrophils # 7.1 (1.6-8.9) K/mcL BMP 06/07/18 06/08/18 16:32 05:16 Sodium 144 145 Potassium 4.9 5.3 H Chloride 102 105 Carbon Dioxide 39 H 41 H* BUN 42 H 37 H Creatinine 1.18 1.07 Glucose 130 H 142 H Calcium 10.3 9.9 Urine 06/08/18 Range/Units 01:50 Urine Color Yellow (Yellow) Urine Clarity Clear (Clear) Urine pH 5.5 (5.0-8.0) pH Units Ur Specific [place] > 1.030 H (1.010-1.025) Urine Protein Negative (Neg-Trace) mg/dL Urine Glucose (UA) Normal (Normal) mg/dL Consult Discharge Plan - Plan Referrals: Soham Wheeler Jr, MD [Primary Care Provider] - 06/13/18 10:00 am <Shmuel Turner - Last Filed: 06/08/18 19:40> Hospitalist Progress Note - Encounter Date of Encounter: 06/08/18 - Exam Vitals: Temp Pulse Resp BP Pulse Ox 97.6 F 92 16 109/61 95 06/08/18 19:04 06/08/18 19:04 06/08/18 19:04 06/08/18 19:04 06/08/18 19:04 - Assessment and Plan (1) Hypothyroid Current Visit: Yes Status: Chronic (2) HTN (hypertension) Current Visit: Yes Status: Chronic (3) DVT prophylaxis Current Visit: Yes Status: Acute (4) Acute and chronic respiratory failure Current Visit: No Status: Chronic (5) Acute exacerbation of chronic obstructive airways disease Current Visit: Yes Status: Acute (6) FABIOLA (acute kidney injury) Current Visit: Yes Status: Acute (7) Diastolic congestive heart failure with preserved left ventricular function , NYHA class 2 Current Visit: Yes Status: Chronic (8) Diastolic heart failure Current Visit: No Status: Chronic - Time Spent with Patient Total time spent is greater than 50% in coordination of care (as documented) at patient's floor/unit and/or counseling patient: Internal Medicine: Result - Labs CBC & Chem 7: 06/08/18 05:16 06/08/18 05:16 Labs: Short CBC 06/08/18 Range/Units 05:16 WBC 9.4 (4.3-11.1) K/mcL Hgb 11.9 (11.5-15.4) g/dL Hct 39.9 (35.3-44.9) % Plt Count 219 (140-400) K/mcL Neutrophils # 7.1 (1.6-8.9) K/mcL BMP 06/08/18 05:16 Sodium 145 Potassium 5.3 H Chloride 105 Carbon Dioxide 41 H* BUN 37 H Creatinine 1.07 Glucose 142 H Calcium 9.9 Urine 06/08/18 Range/Units 01:50 Urine Color Yellow (Yellow) Urine Clarity Clear (Clear) Urine pH 5.5 (5.0-8.0) pH Units Ur Specific [place] > 1.030 H (1.010-1.025) Urine Protein Negative (Neg-Trace) mg/dL Urine Glucose (UA) Normal (Normal) mg/dL - Attending Attestation I examined this patient and my medical decision-making was reviewed with the Resident Physician on 06/08/18. I agree with the documented findings, disposition and treatment plan as described except to the extent set forth below. Ms Romo is currently admitted for acute exac COPD. She remains moderate to high risk due to potential for worsening clinical status. Ms Romo is beginning to feel better. She is still coughing but is less today. No fever or chills. No abd pain. Exam Alert Comfortable in bed Mucus membranes dry Heart reg at this time Lungs with continued wheeze but less than yesterday Abd soft No edema Moves all extremities I/P 1. Acute exac COPD Further diagnoses and plan as above. <Campbell Mondragon - Last Filed: 06/08/18 18:17> (1) Acute and chronic respiratory failure Qualifiers: Respiratory failure complication: hypoxia and hypercapnia Qualified Code(s): J96.21 - Acute and chronic respiratory failure with hypoxia; J96.22 - Acute and chronic respiratory failure with hypercapnia; J96.22 - Acute and chronic respiratory failure with hypercapnia; J96.22 - Acute and chronic respiratory failure with hypercapnia (2) Hypothyroid Qualifiers: Hypothyroidism type: acquired Qualified Code(s): E03.9 - Hypothyroidism, unspecified (3) HTN (hypertension) Qualifiers: Hypertension type: essential hypertension Qualified Code(s): I10 - Essential (primary) hypertension <Shmuel Turner - Last Filed: 06/08/18 19:40> (1) Hypothyroid Qualifiers: Hypothyroidism type: acquired Qualified Code(s): E03.9 - Hypothyroidism, unspecified (2) HTN (hypertension) Qualifiers: Hypertension type: essential hypertension Qualified Code(s): I10 - Essential (primary) hypertension (4) Acute and chronic respiratory failure Qualifiers: Respiratory failure complication: hypoxia and hypercapnia Qualified Code(s): J96.21 - Acute and chronic respiratory failure with hypoxia; J96.22 - Acute and chronic respiratory failure with hypercapnia; J96.22 - Acute and chronic respiratory failure with hypercapnia; J96.22 - Acute and chronic respiratory failure with hypercapnia (8) Diastolic heart failure Qualifiers: Heart failure chronicity: chronic Qualified Code(s): I50.32 - Chronic diastolic (congestive) heart failure
[2018-06-08] MEDS: GuaiFENesin/Pseudophedrine TABLET PO SCH ×2 (11:43→19:47)
[2018-06-09] MEDS: Ipratropium/Albuterol Neb 3 ML IH SCH ×2 (03:49→10:43)
[2018-06-09] MEDS: *HR* Heparin 5,000 UNIT/ML VIAL SQ SCH (05:25)
[2018-06-09 06:09] LABS: BUN/Creatinine Ratio 32 (6-26); Blood Urea Nitrogen 29 mg/dL (8-23); Calcium 9.4 mg/dL (8.6-10.3); Carbon Dioxide 40 mEq/L (23-29); Chloride 102 mEq/L (98-107); Glucose 102 mg/dL (70-105); Osmolality,Calculated 302 (280-300); Potassium 4.8 mEq/L (3.5-5.1); Sodium 143 mEq/L (136-145); eGFR For Non-African Americans > 60 (> 60)
[2018-06-09] MEDS ORDERED: predniSONE 20 MG TABLET PO SCH (09:00)
--- NOTE | 2018-06-09 09:35 | Discharge Summary ---
<Shmuel Turner - Last Filed: 06/09/18 13:49> Date of Encounter: 06/09/18 - Discharge Diagnosis (1) Hypothyroid Status: Chronic Qualifiers: Hypothyroidism type: acquired Qualified Code(s): E03.9 - Hypothyroidism, unspecified (2) HTN (hypertension) Status: Chronic Qualifiers: Hypertension type: essential hypertension Qualified Code(s): I10 - Essential (primary) hypertension (3) DVT prophylaxis Status: Acute (4) Acute and chronic respiratory failure Status: Resolved Qualifiers: Respiratory failure complication: hypoxia and hypercapnia Qualified Code(s) : J96.21 - Acute and chronic respiratory failure with hypoxia; J96.22 - Acute and chronic respiratory failure with hypercapnia (5) Diastolic heart failure Status: Chronic Qualifiers: Heart failure chronicity: chronic Qualified Code(s): I50.32 - Chronic diastolic (congestive) heart failure (6) Acute exacerbation of chronic obstructive airways disease Status: Resolved (7) FABIOLA (acute kidney injury) Status: Resolved (8) Diastolic congestive heart failure with preserved left ventricular function , NYHA class 2 Status: Chronic (9) Tobacco abuse Priority: Secondary Status: Chronic Hospital course: Ms. Romo is a 72 year old female - Time Spent with Patient Total time spent providing and/or coordinating discharge services: 38min - Discharge Medications Prescriptions: GuaiFENesin/Pseudophedrine [Mucinex D] 1 each PO BID 5 Days #10 tab predniSONE [PredniSONE] See Taper PO DAILY 12 Days #30 tablet Home Medications: Albuterol Sulfate [Albuterol Inhaler] 2 puff IH Q4H PRN 09/23/17 [History] Aspirin 325 mg PO DAILY 09/23/17 [History] Atorvastatin [Lipitor] 40 mg PO HS 09/23/17 [History] Budesonide/Formoterol 160/4.5 [Symbicort 160/4.5] 2 puff IH BIDR 09/23/17 [ History] Furosemide [Lasix] 20 mg PO BID 09/23/17 [History] Levothyroxine Sodium 175 mcg PO QAM 09/23/17 [History] Lisinopril [Zestril] 5 mg PO BID 09/23/17 [History] Metoprolol [Lopressor] 25 mg PO BID 09/23/17 [History] GuaiFENesin/Pseudophedrine [Mucinex D] 1 each PO BID 5 Days #10 tab 06/09/18 [Rx ] predniSONE [PredniSONE] See Taper PO DAILY 12 Days #30 tablet 06/09/18 [Rx] Allergies/Adverse Reactions: 3 Allergy/AdvReac Type Severity Reaction Status Date / Time No Known Allergies Allergy Verified 03/21/18 07:01 Date of admission: 06/05/18 12:05 Primary care physician: Soham Wheeler Jr, MD Consults: 06/06/18 08:32 Consult to Nurse Navigator [CONS] Routine Comment: COPD/CHF - Constitutional Vitals: Temp Pulse Resp BP Pulse Ox 98.4 F 66 22 108/69 91 06/09/18 12:39 06/09/18 12:39 06/09/18 12:39 06/09/18 12:39 06/09/18 12:39 - Patient Status Disposition: Home, Self-Care Condition: Good - Discharge Instructions Instructions: Heart Failure (DC), Chronic Obstructive Pulmonary Disease (DC) Follow Up With: Soham Wheeler Jr, MD [Primary Care Provider] - 06/13/18 10:00 am Additional Instructions: Please follow up with your PCP within 1 week and take all medications as prescribed until completion. - Attending Attestation I examined this patient and my medical decision-making was reviewed with the Resident Physician on 06/09/18. I agree with the documented findings, disposition and treatment plan as described except to the extent set forth below. Ms Romo has been admitted for acute exac COPD and acute on chronic resp failure. She has slowly improved and is feeling close to baseline. She is now afebrile and ready for discharge home. Exam alert Comfortable. Mucus membranes dry Heart reg and not tachy Scant end exp wheeze bilateral bases Abd soft No edema Plan D/C home today Oxygen, steroid taper Follow up with PCP. <Campbell Mondragon - Last Filed: 06/09/18 18:08> - NOTES TO OUTPATIENT PROVIDER Notes to Outpatient Provider: Please follow up with your PCP within one week and take all medications as prescribed. Admitted for COPD exacerbation. Given taper for steroids as well as mucinex. Date of Encounter: 06/09/18 Time of Encounter: 09:35 - Discharge Diagnosis (1) Acute and chronic respiratory failure Priority: Primary Status: Resolved Qualifiers: Respiratory failure complication: hypoxia and hypercapnia Qualified Code(s) : J96.21 - Acute and chronic respiratory failure with hypoxia; J96.22 - Acute and chronic respiratory failure with hypercapnia (2) Hypothyroid Priority: Secondary Status: Chronic Qualifiers: Hypothyroidism type: acquired Qualified Code(s): E03.9 - Hypothyroidism, unspecified (3) HTN (hypertension) Priority: Secondary Status: Chronic Qualifiers: Hypertension type: essential hypertension Qualified Code(s): I10 - Essential (primary) hypertension (4) DVT prophylaxis Priority: Secondary Status: Acute (5) Diastolic heart failure Priority: Secondary Status: Chronic Qualifiers: Heart failure chronicity: chronic Qualified Code(s): I50.32 - Chronic diastolic (congestive) heart failure (6) Acute exacerbation of chronic obstructive airways disease Priority: Secondary Status: Resolved (7) FABIOLA (acute kidney injury) Priority: Secondary Status: Resolved (8) Diastolic congestive heart failure with preserved left ventricular function , NYHA class 2 Priority: Secondary Status: Chronic Hospital course: Ms. Romo is a 72 year old female with past medical history of COPD, CAD, CHF, hypertension, hyperlipidemia presented to the emergency department with complaint of increasing shortness of breath 1 week. She did admit to a change in sputum color at that time as well as orthopnea which is chronic for her. She denies any symptoms of fevers, chills, chest pain. On presentation to the emergency room, vital signs are significant for a heart rate of 94, respiratory rate 24, saturating in the mid to low 90s on 2 L. She is home option dependent on 3 L which she states she uses intermittently but is supposed use continuously. Laboratory results at time of presentation were significant for a BUNs/creatinine of 26/1.27 which is elevated from baseline of 0.9. Troponin was negative and BNP was 50. Chest x-ray performed emergency department was significant for mild pulmonary vascular congestion. She was admitted to hospital for further evaluation and management for CHF versus COPD exacerbation. During course of hospital stay, patient did gradually improve. Her symptoms have nearly resolved at time of discharge. She was given diuresis for 3 days at which time this was held due to worsening of kidney function. Respiratory infection panel was obtained and was negative. At one time, she did increase her oxygen use up to 6 L via nasal cannula however since come down back to baseline. She was also treated with steroids, 5 day course of antibiotics, as well as breathing treatments. Echocardiogram was obtained which showed no changes from previous study. On day of discharge, patient did report nearly returned to her baseline. She is eager to return home. Her oxygen use is back at baseline and she did receive a 6 minute walk test at which she did not qualify for increased home oxygen use. Vital signs and labs did return to baseline levels including her creatinine. She was discharged home in stable medical condition and instructed to follow up with her primary care physician within 5-7 days. She will be given a prescription for Mucinex, prednisone taper. She will be discharged home in still medical condition. Discharge discussed with: patient, nurse, social work, case management - Time Spent with Patient Total time spent providing and/or coordinating discharge services: Date of admission: 06/05/18 12:05 Primary care physician: Soham Wheeler Jr, MD Consults: 06/06/18 08:32 Consult to Nurse Navigator [CONS] Routine Comment: COPD/CHF Discharging clinician: Campbell Mondragon Anticipated date of discharge: 06/09/18 - Constitutional Vitals: Temp Pulse Resp BP Pulse Ox 97.9 F 66 20 101/57 91 06/09/18 08:11 06/09/18 08:11 06/09/18 08:11 06/09/18 08:11 06/09/18 08:11 General appearance: Present: cooperative, A&O X 3, pleasant, no acute distress, answers questions appropriately Exam: Gen.: Vitals noted. No acute distress. AAOx3 HEENT: PERRL/EOMI, oropharynx clear, Normocephalic, atraumatic, moist mucous membranes Cardiac: RRR, no murmur, +S1/S2 Pulmonary: Some wheezing still present in bases, improved. equal chest expansion , no respiratory distress, speaking in full sentences on 5 liters nasal cannula Abdomen: soft, nontender, BS noted, no guarding, no rebound. MSK: ROM intact, no joint swelling noted Extremities: no BLE edema, nontender calf, no cyanosis or clubbing Neuro: A&Ox3, moves all extremities, no focal deficits Psych: Appropriate mood and behavior - Patient Status Functional capacity at discharge: uses cane/walker Overall status at discharge: patient is progressing back to baseline - Diet and Activity Activity: increase activity as tolerated, resume usual activities as tolerated, wear oxygen at all times Diet: advance to your usual diet
[2018-06-09] MEDS: levoFLOXacin 750 MG TABLET PO SCH (09:50)
[2018-06-09] MEDS: GuaiFENesin/Pseudophedrine TABLET PO SCH (09:50)
[2018-06-09] MEDS: Aspirin 325 MG TABLET PO SCH (09:50)
[2018-06-09 12:46] VITALS: BP 108/69
== END 2018-06-09 16:11 | disposition home or self-care (01) | DRG 190 ==
LOC: 3BNU 20:19 → EMEROOARM 20:19 → 3BNU 23:50 → SUATTDRO 06-05 12:05
PROVIDERS: ADMIT Family Medicine; ATTEND Internal Medicine

== ENCOUNTER 2020-03-29 15:31 | Observation (INO) ==
[2020-03-29] MEDS ORDERED: methylPREDNISolone 125 MG/2 ML VIAL IVP ONE (15:48)
[2020-03-29] MEDS ORDERED: Ipratropium/Albuterol Neb 3 ML IH ONE (15:48)
[2020-03-29 16:18] LABS: Basophils % 0.3 %; Eosinophils # 0.2 K/mcL (0.0-0.6); Eosinophils % 2.1 %; Hematocrit 34.5 % (35.3-44.9); Hemoglobin 9.9 g/dL (11.5-15.4); Immature Granulocytes % 0.4 % (0-4); Immature Platelets 7.6 % (1.1-6.1); Lymphocytes # 1.5 K/mcL (0.6-4.6); Lymphocytes % 20.8 %; Mean Corpuscular HGB Conc 28.7 g/dL (31.6-35.5); Mean Corpuscular Hemoglobin 30.9 pg (28.0-33.3); Mean Corpuscular Volume 107.8 fL (83.0-100.0); Mean Platelet Volume 10.9 fL (9.4-12.4); Monocytes # 0.6 K/mcL (0.0-1.3); Monocytes % 8.2 %; Neutrophils # 4.9 K/mcL (1.6-8.9); Platelet Count 127 K/mcL (140-400); Red Cell Distribution Width 12.5 % (11.5-14.5); Segmented Neutrophils % 68.2 %; White Blood Count 7.2 K/mcL (4.3-11.1)
[2020-03-29 16:25] LABS: INR 0.9; Prothrombin Time 10.2 Seconds (9.4-12.1)
[2020-03-29 16:26] LABS: Hypochromasia Present (Not Present)
[2020-03-29 16:27] LABS: Activated Partial Thrombo Time 27.6 Seconds (26.0-36.0)
[2020-03-29 17:11] LABS: Alanine Aminotransferase 8 Units/L (7-52); Albumin 3.6 g/dL (3.5-5.7); Albumin/Globulin Ratio 1.5 (1.1-2.2); Alkaline Phosphatase 63 Units/L (34-104); Aspartate Amino Transferase 12 Units/L (13-39); BUN/Creatinine Ratio 23 (6-26); Bilirubin,Direct 0.1 mg/dL (0.0-0.2); Bilirubin,Indirect 0.3 mg/dL (0.0-1.0); Bilirubin,Total 0.4 mg/dL (0.3-1.0); Blood Urea Nitrogen 26 mg/dL (8-23); C-Reactive Protein < 5 mg/L (Less than 10); Calcium 9.5 mg/dL (8.6-10.3); Globulin 2.4 g/dL (2.4-3.5); Glucose 97 mg/dL (70-105); Lactate Dehydrogenase 105 Units/L (140-271); Magnesium 2.2 mg/dL (1.6-2.6); Phosphorous 2.9 mg/dL (2.7-4.5); eGFR For African Americans 57 (> 60); eGFR For Non-African Americans 47 (> 60)
[2020-03-29 17:12] LABS: Adenovirus Not Detected (Not Detect); Bordetella Pertussis Not Detected (Not Detect); Chlamydophila pneumoniae Not Detected (Not Detect); Chloride 94 mEq/L (98-107); Coronavirus 229E Not Detected (Not Detect); Coronavirus HKU1 Not Detected (Not Detect); Coronavirus NL63 Not Detected (Not Detect); Coronavirus OC43 Not Detected (Not Detect); Human Metapneumovirus Not Detected (Not Detect); Human Rhinovirus/Enterovirus DETECTED (Not Detect); Influenza A Subtype 2009 H1 Not Detected (Not Detect); Influenza B Not Detected (Not Detect); Mycoplasma pneumoniae Not Detected (Not Detect); Osmolality,Calculated 305 (280-300); Parainfluenza Virus 1 Not Detected (Not Detect); Parainfluenza Virus 2 Not Detected (Not Detect); Parainfluenza Virus 3 Not Detected (Not Detect); Parainfluenza Virus 4 Not Detected (Not Detect); Potassium 4.9 mEq/L (3.5-5.1); Respiratory Syncytial Virus Not Detected (Not Detect); SARS-CoV-2 Not Detected (Not Detect); Sodium 145 mEq/L (136-145)
[2020-03-29] MEDS ORDERED: Ondansetron 4 MG/2 ML VIAL IVP PRN (17:24)
[2020-03-29] MEDS ORDERED: Naloxone 0.4 MG/ML INJ IVP PRN (17:24)
[2020-03-29 17:25] LABS: Carbon Dioxide > 45 mEq/L (23-29); Ferritin 127 ng/mL (10-120); Troponin I < 0.03 ng/mL (< 0.04)
[2020-03-29] MEDS ORDERED: Ipratropium/Albuterol Neb 3 ML IH PRN (17:27)
[2020-03-29] MEDS: Azithromycin 500 MG in 0.9 % Sodium Chloride 250 ML IVPB SCH (18:39)
[2020-03-29] MEDS: lisinopriL 5 MG TABLET PO SCH (21:21)
[2020-03-29] MEDS: Furosemide 20 MG TABLET PO SCH (21:21)
[2020-03-29] MEDS: Ipratropium/Albuterol Neb 3 ML IH SCH (22:43)
[2020-03-30 02:11] LABS: Basophils % 0.1 %; Hemoglobin 9.6 g/dL (11.5-15.4); Mean Corpuscular Volume 106.8 fL (83.0-100.0); Platelet Count 122 K/mcL (140-400); Red Cell Distribution Width 12.6 % (11.5-14.5)
[2020-03-30 02:13] LABS: Hematocrit 32.9 % (35.3-44.9); Immature Granulocytes % 0.7 % (0-4); Immature Platelets 8.1 % (1.1-6.1); Lymphocytes # 0.4 K/mcL (0.6-4.6); Lymphocytes % 5.4 %; Mean Corpuscular HGB Conc 29.2 g/dL (31.6-35.5); Mean Corpuscular Hemoglobin 31.2 pg (28.0-33.3); Mean Platelet Volume 11.7 fL (9.4-12.4); Monocytes % 0.4 %; Neutrophils # 6.4 K/mcL (1.6-8.9); Red Blood Count 3.08 M/mcL (3.82-4.97); Segmented Neutrophils % 93.4 %; White Blood Count 6.8 K/mcL (4.3-11.1)
[2020-03-30 02:38] LABS: % Iron Saturation 12 % (15-50); Calcium 9.4 mg/dL (8.6-10.3); Iron 33 mcg/dL (50-170); Magnesium 2.1 mg/dL (1.6-2.6); Transferrin 197 mg/dL (203-362)
[2020-03-30 02:51] LABS: Ferritin 118 ng/mL (10-120)
[2020-03-30 02:57] LABS: Folate 11.9 ng/mL (3.0-16.0)
[2020-03-30] MEDS: Ipratropium/Albuterol Neb 3 ML IH SCH ×4 (03:08→22:11)
[2020-03-30] MEDS: lisinopriL 5 MG TABLET PO SCH (09:02)
[2020-03-30] MEDS: Furosemide 20 MG TABLET PO SCH ×2 (09:03→20:36)
[2020-03-30] MEDS: MethylPREDNISolone 40 MG/ML VIAL IVP SCH ×2 (09:03→18:08)
[2020-03-30] MEDS: Azithromycin 500 MG in 0.9 % Sodium Chloride 250 ML IVPB SCH (18:08)
[2020-03-30] MEDS: *HR* Heparin 5,000 UNIT/ML VIAL SQ SCH (18:08)
[2020-03-30] MEDS ORDERED: Gabapentin 100 MG CAPSULE PO SCH (21:00)
[2020-03-31] MEDS: Ipratropium/Albuterol Neb 3 ML IH SCH (03:38)
[2020-03-31] MEDS: MethylPREDNISolone 40 MG/ML VIAL IVP SCH (05:25)
[2020-03-31] MEDS: *HR* Heparin 5,000 UNIT/ML VIAL SQ SCH (05:25)
[2020-03-31 07:07] VITALS: BP 121/49
[2020-03-31] MEDS: Furosemide 20 MG TABLET PO SCH (08:41)
[2020-03-31] MEDS ORDERED: lisinopriL 5 MG TABLET PO SCH (09:00)
== END 2020-03-31 10:13 | disposition home or self-care (01) ==
LOC: EMEROOARM 15:31 → 3BNU 15:31
PROVIDERS: ADMIT Family Medicine; ATTEND Family Medicine

== ENCOUNTER 2020-07-07 19:42 | Inpatient (IN) ==
[2020-07-07] MEDS ORDERED: methylPREDNISolone 125 MG/2 ML VIAL IVP ONE (20:41)
[2020-07-07] MEDS ORDERED: Ipratropium/Albuterol Neb 3 ML IH ONE (20:42)
[2020-07-07 20:52] LABS: INR 0.9; Prothrombin Time 10.7 Seconds (9.4-12.1)
[2020-07-07 20:55] LABS: Activated Partial Thrombo Time 27.8 Seconds (26.0-36.0)
[2020-07-07 20:56] LABS: Basophils % 0.5 %; Eosinophils # 0.2 K/mcL (0.0-0.6); Eosinophils % 4.2 %; Hematocrit 36.7 % (35.3-44.9); Hemoglobin 10.4 g/dL (11.5-15.4); Immature Granulocytes % 0.4 % (0-4); Immature Platelets 8.4 % (1.1-6.1); Lymphocytes # 1.7 K/mcL (0.6-4.6); Lymphocytes % 29.6 %; Mean Corpuscular HGB Conc 28.3 g/dL (31.6-35.5); Mean Corpuscular Hemoglobin 30.2 pg (28.0-33.3); Mean Corpuscular Volume 106.7 fL (83.0-100.0); Mean Platelet Volume 11.6 fL (9.4-12.4); Monocytes # 0.5 K/mcL (0.0-1.3); Neutrophils # 3.2 K/mcL (1.6-8.9); Platelet Count 121 K/mcL (140-400); Red Blood Count 3.44 M/mcL (3.82-4.97); Red Cell Distribution Width 12.4 % (11.5-14.5); Segmented Neutrophils % 56.3 %; White Blood Count 5.7 K/mcL (4.3-11.1)
[2020-07-07 21:07] LABS: BUN/Creatinine Ratio 26 (6-26); Blood Urea Nitrogen 28 mg/dL (8-23); Calcium 9.3 mg/dL (8.6-10.3); Carbon Dioxide 45 mEq/L (23-29); Chloride 97 mEq/L (98-107); Glucose 85 mg/dL (70-105); Osmolality,Calculated 301 (280-300); Potassium 4.7 mEq/L (3.5-5.1); Sodium 143 mEq/L (136-145); Troponin I < 0.03 ng/mL (< 0.04); eGFR For African Americans 60 (> 60); eGFR For Non-African Americans 49 (> 60)
[2020-07-07 21:35] LABS: Platelet Estimate Slight Decrease (Normal); Stomatocytes 1+ (Not Present)
[2020-07-07 22:12] LABS: VBG HCO3 46 mEq/L (21-27); VBG PCO2 113 mmHg (41-51); VBG PH 7.21 pH Units (7.32-7.42); VBG PO2 238 mmHg (25-50)
[2020-07-08] MEDS ORDERED: Ondansetron ODT 4 MG TAB.RAPDIS SL PRN (00:47)
[2020-07-08] MEDS ORDERED: Acetaminophen 325 MG TABLET PO PRN (00:47)
[2020-07-08] MEDS ORDERED: Naloxone 0.4 MG/ML INJ IVP PRN (00:47)
[2020-07-08] MEDS ORDERED: Ipratropium/Albuterol Neb 3 ML IH PRN (00:49)
[2020-07-08] MEDS ORDERED: Azithromycin 500 MG in 0.9 % Sodium Chloride 250 ML IVPB SCH (01:00)
[2020-07-08 04:04] LABS: Basophils % 0.4 %; Eosinophils % 0.2 %; Hematocrit 35.2 % (35.3-44.9); Hemoglobin 10.2 g/dL (11.5-15.4); Immature Granulocytes % 0.6 % (0-4); Immature Platelets 8.4 % (1.1-6.1); Lymphocytes # 0.5 K/mcL (0.6-4.6); Lymphocytes % 10.7 %; Mean Corpuscular Hemoglobin 30.6 pg (28.0-33.3); Mean Corpuscular Volume 105.7 fL (83.0-100.0); Mean Platelet Volume 11.6 fL (9.4-12.4); Monocytes % 0.6 %; Neutrophils # 4.2 K/mcL (1.6-8.9); Platelet Count 113 K/mcL (140-400); Red Blood Count 3.33 M/mcL (3.82-4.97); Red Cell Distribution Width 12.1 % (11.5-14.5); Segmented Neutrophils % 87.5 %; White Blood Count 4.8 K/mcL (4.3-11.1)
[2020-07-08 04:20] LABS: BUN/Creatinine Ratio 26 (6-26); Blood Urea Nitrogen 29 mg/dL (8-23); Calcium 9.5 mg/dL (8.6-10.3); Carbon Dioxide > 45 mEq/L (23-29); Chloride 98 mEq/L (98-107); Glucose 146 mg/dL (70-105); Magnesium 2.2 mg/dL (1.6-2.6); Osmolality,Calculated 308 (280-300); Phosphorous 2.8 mg/dL (2.7-4.5); Potassium 5.6 mEq/L (3.5-5.1); Sodium 145 mEq/L (136-145); eGFR For African Americans 59 (> 60); eGFR For Non-African Americans 49 (> 60)
[2020-07-08 04:48] LABS: Folate > 22.3 ng/mL (3.0-16.0); Vitamin B12 301 pg/mL (250-1100)
[2020-07-08 06:15] LABS: ABG Base Excess 16 mEq/L (-2 to 3); ABG HCO3 45 mEq/L (21-27); ABG Oxygen Saturation 94 % (95-98); ABG PCO2 89 mmHg (35-45); ABG PH 7.31 pH Units (7.32-7.45); ABG PO2 84 mmHg (85-104); ABG TCO2 48 mEq/L (20-26)
[2020-07-08] MEDS: methylPREDNISolone 125 MG/2 ML VIAL IVP SCH ×2 (08:24→17:51)
[2020-07-08] MEDS: Ipratropium/Albuterol Neb 3 ML IH SCH ×5 (10:02→23:46)
[2020-07-08] MEDS: Gabapentin 100 MG CAPSULE PO SCH ×2 (13:06→19:55)
[2020-07-08] MEDS: lisinopriL 5 MG TABLET PO SCH (13:06)
[2020-07-08] MEDS: Aspirin 325 MG TABLET PO SCH (13:06)
[2020-07-08] MEDS: Furosemide 20 MG TABLET PO SCH (17:51)
[2020-07-09] MEDS: Azithromycin 500 MG in 0.9 % Sodium Chloride 250 ML IVPB SCH (00:57)
[2020-07-09] MEDS: methylPREDNISolone 125 MG/2 ML VIAL IVP SCH ×4 (00:58→23:32)
[2020-07-09 03:35] LABS: Basophils % 0.2 %; Hematocrit 31.4 % (35.3-44.9); Hemoglobin 9.5 g/dL (11.5-15.4); Immature Granulocytes % 0.3 % (0-4); Lymphocytes # 0.6 K/mcL (0.6-4.6); Lymphocytes % 9.1 %; Mean Corpuscular HGB Conc 30.3 g/dL (31.6-35.5); Mean Corpuscular Volume 102.6 fL (83.0-100.0); Mean Platelet Volume 11.8 fL (9.4-12.4); Monocytes # 0.2 K/mcL (0.0-1.3); Neutrophils # 5.3 K/mcL (1.6-8.9); Platelet Count 115 K/mcL (140-400); Red Blood Count 3.06 M/mcL (3.82-4.97); Red Cell Distribution Width 12.2 % (11.5-14.5); Segmented Neutrophils % 87.4 %
[2020-07-09] MEDS: Ipratropium/Albuterol Neb 3 ML IH SCH ×5 (03:45→19:39)
[2020-07-09 03:56] LABS: Calcium 9.3 mg/dL (8.6-10.3); Potassium 4.8 mEq/L (3.5-5.1)
[2020-07-09 05:32] LABS: ABG Base Excess 14 mEq/L (-2 to 3); ABG HCO3 42 mEq/L (21-27); ABG Oxygen Saturation 86 % (95-98); ABG PCO2 68 mmHg (35-45); ABG PO2 55 mmHg (85-104); ABG TCO2 44 mEq/L (20-26)
[2020-07-09] MEDS: lisinopriL 5 MG TABLET PO SCH (08:06)
[2020-07-09] MEDS: Furosemide 20 MG TABLET PO SCH ×2 (08:06→16:24)
[2020-07-09] MEDS: Aspirin 325 MG TABLET PO SCH (08:06)
[2020-07-09] MEDS: Gabapentin 100 MG CAPSULE PO SCH (20:31)
[2020-07-10] MEDS: Ipratropium/Albuterol Neb 3 ML IH SCH ×4 (00:09→11:22)
[2020-07-10] MEDS: Azithromycin 500 MG in 0.9 % Sodium Chloride 250 ML IVPB SCH (02:44)
[2020-07-10 03:25] LABS: Calcium 9.3 mg/dL (8.6-10.3)
[2020-07-10 04:46] LABS: Hematocrit 31.8 % (35.3-44.9); Hemoglobin 9.4 g/dL (11.5-15.4); Immature Granulocytes % 0.6 % (0-4); Lymphocytes # 0.8 K/mcL (0.6-4.6); Lymphocytes % 8.8 %; Mean Corpuscular HGB Conc 29.6 g/dL (31.6-35.5); Mean Corpuscular Hemoglobin 30.5 pg (28.0-33.3); Mean Corpuscular Volume 103.2 fL (83.0-100.0); Mean Platelet Volume 12.1 fL (9.4-12.4); Monocytes # 0.5 K/mcL (0.0-1.3); Monocytes % 5.2 %; Neutrophils # 7.4 K/mcL (1.6-8.9); Platelet Count 131 K/mcL (140-400); Red Blood Count 3.08 M/mcL (3.82-4.97); Red Cell Distribution Width 12.6 % (11.5-14.5); Segmented Neutrophils % 85.4 %; White Blood Count 8.7 K/mcL (4.3-11.1)
[2020-07-10] MEDS: lisinopriL 5 MG TABLET PO SCH (07:34)
[2020-07-10] MEDS: Furosemide 20 MG TABLET PO SCH (07:34)
[2020-07-10] MEDS: Aspirin 325 MG TABLET PO SCH (07:34)
[2020-07-10 10:56] VITALS: BP 115/59
[2020-07-10] MEDS: methylPREDNISolone 125 MG/2 ML VIAL IVP SCH (11:56)
[2020-07-10] MEDS ORDERED: FLU Vac QV 20-21 (6Month+)/PF 0.5 ML SYRINGE IM ONE (13:13)
[2020-07-11] MEDS ORDERED: Azithromycin 250 MG TABLET PO SCH (09:00)
== END 2020-07-10 14:36 | disposition home or self-care (01) | DRG 190 ==
LOC: 2ANU 19:42 → EMEROOARM 19:42 → SUATTDRO 07-08 00:16 → 2ANU 07-08 01:09 → SUATTDRO 07-09 17:20
PROVIDERS: ADMIT Internal Medicine; ATTEND Internal Medicine

== ENCOUNTER 2021-01-12 21:12 | Inpatient (IN) ==
[2021-01-12] MEDS ORDERED: Ondansetron 4 MG/2 ML VIAL IVP ONE (21:31)
[2021-01-12 21:59] LABS: Basophils % 0.2 %; Eosinophils # 0.1 K/mcL (0.0-0.6); Eosinophils % 1.7 %; Hematocrit 39.5 % (35.3-44.9); Hemoglobin 11.3 g/dL (11.5-15.4); Immature Granulocytes % 0.7 % (0-4); Immature Platelets 6.1 % (1.1-6.1); Lymphocytes % 12.7 %; Mean Corpuscular HGB Conc 28.6 g/dL (31.6-35.5); Mean Corpuscular Volume 108.5 fL (83.0-100.0); Mean Platelet Volume 10.7 fL (9.4-12.4); Monocytes # 0.5 K/mcL (0.0-1.3); Monocytes % 6.7 %; Platelet Count 135 K/mcL (140-400); Red Blood Count 3.64 M/mcL (3.82-4.97); Red Cell Distribution Width 12.9 % (11.5-14.5)
[2021-01-12 22:00] LABS: Neutrophils # 6.2 K/mcL (1.6-8.9)
[2021-01-12] MEDS ORDERED: Isovue-370 500 ML BOTTLE IVP ONE (22:00)
[2021-01-12 22:02] LABS: INR 0.9; Prothrombin Time 9.9 Seconds (9.4-12.1)
[2021-01-12] MEDS ORDERED: *HR* FentaNYL (PF) 100 MCG/2 ML VIAL IVP STA (22:02)
[2021-01-12 22:09] LABS: VBG Ionized Calcium 1.22 mmol/L (1.15-1.35)
[2021-01-12 22:15] LABS: Hypochromasia Present (Not Present); Platelet Estimate Decreased (Normal)
[2021-01-12 22:34] LABS: Alanine Aminotransferase 14 Units/L (7-52); Albumin 3.7 g/dL (3.5-5.7); Albumin/Globulin Ratio 1.7 (1.1-2.2); Alkaline Phosphatase 55 Units/L (34-104); Aspartate Amino Transferase 13 Units/L (13-39); BUN/Creatinine Ratio 26 (6-26); Bilirubin,Total 0.4 mg/dL (0.3-1.0); Blood Urea Nitrogen 33 mg/dL (8-23); Carbon Dioxide 45 mEq/L (23-29); Chloride 98 mEq/L (98-107); Creatine Kinase 26 Units/L (30-223); Globulin 2.2 g/dL (2.4-3.5); Glucose 149 mg/dL (70-105); Magnesium 2.3 mg/dL (1.6-2.6); Osmolality,Calculated 306 (280-300); Phosphorous 4.1 mg/dL (2.7-4.5); Potassium 5.3 mEq/L (3.5-5.1); Sodium 143 mEq/L (136-145); Total Protein 5.9 g/dL (6.4-8.9); Troponin I < 0.03 ng/mL (< 0.04); eGFR For African Americans 50 (> 60); eGFR For Non-African Americans 42 (> 60)
[2021-01-12 22:39] LABS: Thyroid Stimulating Hormone 0.876 mcIU/mL (0.340-5.600)
[2021-01-12 23:37] LABS: Bilirubin,Urine Negative (Negative); Blood,Urine Negative (Negative); Clarity,Urine Clear (Clear); Color,Urine Light-Yellow (Yellow); Glucose,Urine (UA) Normal (Normal); Ketones,Urine Negative (Negative); Leukocyte Esterase,Urine Negative (Negative); Nitrite,Urine Negative (Negative); PH,Urine 5.5 pH Units (5.0-8.0); Protein,Urine Negative (Neg-Trace); Specific Gravity,Urine 1.024 (1.010-1.025); Urobilinogen,Urine Normal (Normal)
[2021-01-13 00:08] LABS: Lipase 70 Units/L (11-82)
[2021-01-13] MEDS ORDERED: Melatonin 3 MG TABLET PO PRN (01:35)
[2021-01-13] MEDS ORDERED: Ondansetron 4 MG/2 ML VIAL IVP PRN (01:35)
[2021-01-13] MEDS ORDERED: Naloxone 0.4 MG/ML INJ IVP PRN (01:35)
[2021-01-13] MEDS ORDERED: Acetaminophen 325 MG TABLET PO PRN (01:35)
[2021-01-13] MEDS ORDERED: Ringers Solution, Lactated 1,000 ML IVC SCH (01:45)
[2021-01-13 02:06] LABS: ABG Base Excess 17 mEq/L (-2 to 3); ABG HCO3 50 mEq/L (21-27); ABG Oxygen Saturation 87 % (95-98); ABG PCO2 125 mmHg (35-45); ABG PH 7.21 pH Units (7.32-7.45); ABG PO2 70 mmHg (85-104); ABG TCO2 > 50 mEq/L (20-26)
[2021-01-13 02:20] LABS: Hemoglobin 10.9 g/dL (11.5-15.4); Red Cell Distribution Width 12.8 % (11.5-14.5)
[2021-01-13 02:21] LABS: Basophils % 0.3 %; Eosinophils # 0.1 K/mcL (0.0-0.6); Eosinophils % 0.8 %; Hematocrit 37.9 % (35.3-44.9); Immature Granulocytes % 1.5 % (0-4); Immature Platelets 5.5 % (1.1-6.1); Lymphocytes # 0.8 K/mcL (0.6-4.6); Lymphocytes % 10.2 %; Mean Corpuscular HGB Conc 28.8 g/dL (31.6-35.5); Mean Corpuscular Hemoglobin 31.1 pg (28.0-33.3); Mean Platelet Volume 10.7 fL (9.4-12.4); Monocytes # 0.4 K/mcL (0.0-1.3); Neutrophils # 6.4 K/mcL (1.6-8.9); Platelet Count 123 K/mcL (140-400); Red Blood Count 3.51 M/mcL (3.82-4.97); Segmented Neutrophils % 82.2 %; White Blood Count 7.8 K/mcL (4.3-11.1)
[2021-01-13 02:28] LABS: INR 0.9
[2021-01-13 02:43] LABS: Platelet Estimate Normal (Normal)
[2021-01-13 02:53] LABS: BUN/Creatinine Ratio 25 (6-26); Blood Urea Nitrogen 31 mg/dL (8-23); Carbon Dioxide > 45 mEq/L (23-29); Chloride 98 mEq/L (98-107); Glucose 139 mg/dL (70-105); Magnesium 2.3 mg/dL (1.6-2.6); Osmolality,Calculated 305 (280-300); Potassium 5.7 mEq/L (3.5-5.1); Sodium 143 mEq/L (136-145); eGFR For African Americans 51 (> 60); eGFR For Non-African Americans 42 (> 60)
[2021-01-13] MEDS ORDERED: methylPREDNISolone 125 MG/2 ML VIAL IVP ONE (02:59)
[2021-01-13] MEDS ORDERED: Ipratropium/Albuterol Neb 3 ML IH PRN ×2 (03:00→04:00)
[2021-01-13] MEDS ORDERED: *HR* Dextrose 50 % in Water (Vial) 50 ML VIAL IVP ONE ×2 (03:03→08:43)
[2021-01-13] MEDS ORDERED: Insulin Human Regular 10 UNIT in 0.9 % Sodium Chloride 10 ML IV ONE ×2 (03:03→08:43)
[2021-01-13] MEDS: Ipratropium/Albuterol Neb 3 ML IH SCH ×6 (03:21→23:17)
[2021-01-13 05:15] LABS: ABG Base Excess 18 mEq/L (-2 to 3); ABG HCO3 51 mEq/L (21-27); ABG Oxygen Saturation 87 % (95-98); ABG PCO2 124 mmHg (35-45); ABG PH 7.22 pH Units (7.32-7.45); ABG PO2 69 mmHg (85-104); ABG TCO2 > 50 mEq/L (20-26); Blood Gas Modality NIV; Blood Gas VT 425 cc
[2021-01-13] MEDS ORDERED: Calcium Gluconate 1gm/50mL 1 GM/50 ML BAG IVPB ONE (08:43)
[2021-01-13] MEDS ORDERED: levoFLOXacin 750 MG/150 ML 750 MG/150 ML BAG IVPB SCH (09:00)
[2021-01-13 09:13] LABS: ABG Base Excess 17 mEq/L (-2 to 3); ABG HCO3 47 mEq/L (21-27); ABG Oxygen Saturation 90 % (95-98); ABG PCO2 87 mmHg (35-45); ABG PH 7.34 pH Units (7.32-7.45); ABG PO2 67 mmHg (85-104); ABG TCO2 50 mEq/L (20-26); Blood Gas Modality avaps; Blood Gas VT 450 cc
[2021-01-13] MEDS: Aspirin 325 MG TABLET PO SCH (09:24)
[2021-01-13] MEDS: Pantoprazole 40 MG VIAL IVP SCH (10:00)
[2021-01-13] MEDS: methylPREDNISolone 125 MG/2 ML VIAL IVP SCH ×2 (10:50→18:58)
[2021-01-13 11:04] LABS: Adenovirus Not Detected (Not Detect); Bordetella Pertussis Not Detected (Not Detect); Chlamydophila pneumoniae Not Detected (Not Detect); Coronavirus 229E Not Detected (Not Detect); Coronavirus HKU1 Not Detected (Not Detect); Coronavirus NL63 Not Detected (Not Detect); Coronavirus OC43 Not Detected (Not Detect); Human Metapneumovirus Not Detected (Not Detect); Human Rhinovirus/Enterovirus Not Detected (Not Detect); Influenza A Subtype 2009 H1 Not Detected (Not Detect); Influenza B Not Detected (Not Detect); Mycoplasma pneumoniae Not Detected (Not Detect); Parainfluenza Virus 1 Not Detected (Not Detect); Parainfluenza Virus 2 Not Detected (Not Detect); Parainfluenza Virus 3 Not Detected (Not Detect); Parainfluenza Virus 4 Not Detected (Not Detect); Respiratory Syncytial Virus Not Detected (Not Detect); SARS-CoV-2 Not Detected (Not Detect)
[2021-01-13] MEDS ORDERED: Morphine Sulfate 2 MG/ML SYRINGE IVP ONE (11:16)
[2021-01-13 14:27] LABS: Calcium 9.2 mg/dL (8.6-10.3); Potassium 5.4 mEq/L (3.5-5.1)
[2021-01-13] MEDS: *HR* Heparin 5,000 UNIT/ML VIAL SQ SCH (18:58)
[2021-01-13] MEDS ORDERED: *HR* LORazepam 2 MG/ML VIAL IVP ONE ×3 (20:51→21:44)
[2021-01-14 01:27] LABS: Red Cell Distribution Width 12.6 % (11.5-14.5)
[2021-01-14 01:29] LABS: Hematocrit 34.1 % (35.3-44.9); Hemoglobin 10.4 g/dL (11.5-15.4); Immature Granulocytes % 0.5 % (0-4); Immature Platelets 4.6 % (1.1-6.1); Lymphocytes # 0.3 K/mcL (0.6-4.6); Lymphocytes % 3.1 %; Mean Corpuscular HGB Conc 30.5 g/dL (31.6-35.5); Mean Corpuscular Hemoglobin 31.7 pg (28.0-33.3); Mean Platelet Volume 11.2 fL (9.4-12.4); Monocytes # 0.2 K/mcL (0.0-1.3); Monocytes % 1.5 %; Neutrophils # 9.5 K/mcL (1.6-8.9); Platelet Count 136 K/mcL (140-400); Red Blood Count 3.28 M/mcL (3.82-4.97); Segmented Neutrophils % 94.9 %
[2021-01-14 01:50] LABS: Calcium 9.3 mg/dL (8.6-10.3); Magnesium 2.1 mg/dL (1.6-2.6); Phosphorous 2.8 mg/dL (2.7-4.5); Potassium 5.1 mEq/L (3.5-5.1)
[2021-01-14] MEDS ORDERED: *HR* LORazepam 2 MG/ML VIAL IVP ONE (02:19)
[2021-01-14] MEDS: methylPREDNISolone 125 MG/2 ML VIAL IVP SCH ×3 (02:33→20:11)
[2021-01-14] MEDS: Ipratropium/Albuterol Neb 3 ML IH SCH ×6 (04:09→23:29)
[2021-01-14] MEDS: *HR* Heparin 5,000 UNIT/ML VIAL SQ SCH ×2 (05:21→20:11)
[2021-01-14] MEDS: Aspirin 325 MG TABLET PO SCH (08:00)
[2021-01-14] MEDS: Pantoprazole 40 MG VIAL IVP SCH (08:00)
[2021-01-15 03:13] LABS: Hematocrit 33.8 % (35.3-44.9); Hemoglobin 10.2 g/dL (11.5-15.4); Mean Corpuscular HGB Conc 30.2 g/dL (31.6-35.5); Mean Corpuscular Hemoglobin 31.1 pg (28.0-33.3); Mean Platelet Volume 11.2 fL (9.4-12.4); Platelet Count 133 K/mcL (140-400); Red Blood Count 3.28 M/mcL (3.82-4.97); Red Cell Distribution Width 12.9 % (11.5-14.5); White Blood Count 9.6 K/mcL (4.3-11.1)
[2021-01-15] MEDS: Ipratropium/Albuterol Neb 3 ML IH SCH ×6 (03:13→23:33)
[2021-01-15 03:38] LABS: Calcium 9.2 mg/dL (8.6-10.3); Potassium 5.1 mEq/L (3.5-5.1)
[2021-01-15] MEDS: methylPREDNISolone 125 MG/2 ML VIAL IVP SCH ×3 (03:53→19:45)
[2021-01-15] MEDS: *HR* Heparin 5,000 UNIT/ML VIAL SQ SCH ×2 (05:28→16:46)
[2021-01-15] MEDS: Pantoprazole 40 MG VIAL IVP SCH (08:45)
[2021-01-15] MEDS: Aspirin 325 MG TABLET PO SCH (08:45)
[2021-01-15] MEDS ORDERED: levoFLOXacin 750 MG/150 ML 750 MG/150 ML BAG IVPB SCH (09:00)
[2021-01-16 01:42] LABS: Hemoglobin 10.5 g/dL (11.5-15.4); Red Cell Distribution Width 12.9 % (11.5-14.5)
[2021-01-16 01:44] LABS: Hematocrit 34.1 % (35.3-44.9); Immature Platelets 6.2 % (1.1-6.1); Mean Corpuscular HGB Conc 30.8 g/dL (31.6-35.5); Mean Corpuscular Hemoglobin 31.3 pg (28.0-33.3); Mean Corpuscular Volume 101.5 fL (83.0-100.0); Red Blood Count 3.36 M/mcL (3.82-4.97); White Blood Count 8.9 K/mcL (4.3-11.1)
[2021-01-16] MEDS: methylPREDNISolone 125 MG/2 ML VIAL IVP SCH ×3 (03:47→17:17)
[2021-01-16] MEDS: Ipratropium/Albuterol Neb 3 ML IH SCH ×5 (03:53→19:47)
[2021-01-16] MEDS: *HR* Heparin 5,000 UNIT/ML VIAL SQ SCH ×2 (05:11→17:17)
[2021-01-16] MEDS: Aspirin 325 MG TABLET PO SCH (08:16)
[2021-01-17] MEDS: Ipratropium/Albuterol Neb 3 ML IH SCH ×4 (00:04→11:26)
[2021-01-17] MEDS: methylPREDNISolone 125 MG/2 ML VIAL IVP SCH (03:43)
[2021-01-17] MEDS: *HR* Heparin 5,000 UNIT/ML VIAL SQ SCH (05:30)
[2021-01-17 06:42] LABS: Hematocrit 33.5 % (35.3-44.9); Hemoglobin 10.2 g/dL (11.5-15.4); Immature Platelets 6.9 % (1.1-6.1); Mean Corpuscular HGB Conc 30.4 g/dL (31.6-35.5); Mean Corpuscular Hemoglobin 30.7 pg (28.0-33.3); Mean Corpuscular Volume 100.9 fL (83.0-100.0); Mean Platelet Volume 11.3 fL (9.4-12.4); Red Blood Count 3.32 M/mcL (3.82-4.97); White Blood Count 8.4 K/mcL (4.3-11.1)
[2021-01-17 06:57] LABS: Calcium 8.7 mg/dL (8.6-10.3); Potassium 4.8 mEq/L (3.5-5.1)
[2021-01-17 08:18] VITALS: BP 134/62
[2021-01-17] MEDS: Aspirin 325 MG TABLET PO SCH (08:26)
[2021-01-18] MEDS ORDERED: predniSONE 20 MG TABLET PO SCH (09:00)
== END 2021-01-17 14:07 | disposition home or self-care (01) | DRG 190 ==
LOC: 3BNU 21:12 → EMEROOARM 21:12 → SUATTDRO 01-13 00:15 → 3BNU 01-13 01:00 → 2NNU 01-13 10:24 → 2ANU 01-14 18:12
PROVIDERS: ADMIT Family Medicine; ATTEND Family Medicine

== ENCOUNTER 2021-02-03 10:54 | Observation (INO) ==
[2021-02-03 11:38] LABS: Basophils % 0.3 %; Eosinophils # 0.1 K/mcL (0.0-0.6); Eosinophils % 2.4 %; Hematocrit 36.1 % (35.3-44.9); Hemoglobin 10.6 g/dL (11.5-15.4); Immature Granulocytes % 0.7 % (0-4); Lymphocytes # 1.3 K/mcL (0.6-4.6); Lymphocytes % 21.9 %; Mean Corpuscular HGB Conc 29.4 g/dL (31.6-35.5); Mean Corpuscular Volume 105.6 fL (83.0-100.0); Mean Platelet Volume 10.5 fL (9.4-12.4); Monocytes # 0.6 K/mcL (0.0-1.3); Monocytes % 9.7 %; Neutrophils # 3.8 K/mcL (1.6-8.9); Platelet Count 139 K/mcL (140-400); Red Blood Count 3.42 M/mcL (3.82-4.97); Red Cell Distribution Width 13.9 % (11.5-14.5); White Blood Count 5.9 K/mcL (4.3-11.1)
[2021-02-03 12:00] LABS: VBG HCO3 41 mEq/L (21-27); VBG PCO2 87 mmHg (41-51); VBG PH 7.28 pH Units (7.32-7.42); VBG PO2 44 mmHg (25-50)
[2021-02-03 12:10] LABS: Alanine Aminotransferase 16 Units/L (7-52); Albumin 3.8 g/dL (3.5-5.7); Albumin/Globulin Ratio 1.8 (1.1-2.2); Alkaline Phosphatase 51 Units/L (34-104); Aspartate Amino Transferase 16 Units/L (13-39); BUN/Creatinine Ratio 25 (6-26); Bilirubin,Direct 0.1 mg/dL (0.0-0.2); Bilirubin,Indirect 0.5 mg/dL (0.0-1.0); Bilirubin,Total 0.6 mg/dL (0.3-1.0); Blood Urea Nitrogen 39 mg/dL (8-23); Calcium 9.4 mg/dL (8.6-10.3); Carbon Dioxide 43 mEq/L (23-29); Chloride 99 mEq/L (98-107); Globulin 2.1 g/dL (2.4-3.5); Glucose 96 mg/dL (70-105); Osmolality,Calculated 305 (280-300); Potassium 5.4 mEq/L (3.5-5.1); Sodium 143 mEq/L (136-145); Total Protein 5.9 g/dL (6.4-8.9); Troponin I < 0.03 ng/mL (< 0.04); eGFR For African Americans 39 (> 60); eGFR For Non-African Americans 32 (> 60)
[2021-02-03] MEDS ORDERED: methylPREDNISolone 125 MG/2 ML VIAL IVP ONE (12:10)
[2021-02-03] MEDS ORDERED: 0.9 % Sodium Chloride 1,000 ML IVC ONE (12:47)
[2021-02-03] MEDS ORDERED: 0.9 % Sodium Chloride 500 ML IVC ONE (12:48)
[2021-02-03] MEDS ORDERED: Ipratropium/Albuterol Neb 3 ML IH PRN (14:50)
[2021-02-03] MEDS ORDERED: Nicotine 14 MG PATCH.TD24 TD SCH (15:00)
[2021-02-03] MEDS ORDERED: Nicotine 2 MG GUM BC PRN (15:00)
[2021-02-03] MEDS ORDERED: Ondansetron 4 MG/2 ML VIAL IVP PRN (15:06)
[2021-02-03] MEDS ORDERED: Acetaminophen 325 MG TABLET PO PRN (15:06)
[2021-02-03] MEDS ORDERED: Melatonin 3 MG TABLET PO PRN (15:06)
[2021-02-03] MEDS: Azithromycin 250 MG TABLET PO SCH (15:27)
[2021-02-03] MEDS: Ipratropium/Albuterol Neb 3 ML IH SCH ×3 (16:27→23:29)
[2021-02-03 17:28] LABS: Adenovirus Not Detected (Not Detect); Coronavirus 229E Not Detected (Not Detect); Coronavirus HKU1 Not Detected (Not Detect); Coronavirus NL63 Not Detected (Not Detect); Coronavirus OC43 Not Detected (Not Detect); Human Metapneumovirus Not Detected (Not Detect); Human Rhinovirus/Enterovirus Not Detected (Not Detect); Influenza A Subtype 2009 H1 Not Detected (Not Detect); SARS-CoV-2 Not Detected (Not Detect)
[2021-02-03 17:29] LABS: Bordetella Pertussis Not Detected (Not Detect); Chlamydophila pneumoniae Not Detected (Not Detect); Influenza B Not Detected (Not Detect); Mycoplasma pneumoniae Not Detected (Not Detect); Parainfluenza Virus 1 Not Detected (Not Detect); Parainfluenza Virus 2 Not Detected (Not Detect); Parainfluenza Virus 3 Not Detected (Not Detect); Parainfluenza Virus 4 Not Detected (Not Detect); Respiratory Syncytial Virus Not Detected (Not Detect)
[2021-02-03] MEDS ORDERED: Gabapentin 100 MG CAPSULE PO SCH (21:00)
[2021-02-03] MEDS: *HR* Heparin 5,000 UNIT/ML VIAL SQ SCH (23:17)
[2021-02-03] MEDS: MethylPREDNISolone 40 MG/ML VIAL IVP SCH (23:20)
[2021-02-04] MEDS: Ipratropium/Albuterol Neb 3 ML IH SCH ×3 (03:41→11:09)
[2021-02-04 03:54] LABS: Hematocrit 31.5 % (35.3-44.9); Hemoglobin 9.9 g/dL (11.5-15.4); Mean Corpuscular HGB Conc 31.4 g/dL (31.6-35.5); Mean Corpuscular Hemoglobin 31.9 pg (28.0-33.3); Mean Corpuscular Volume 101.6 fL (83.0-100.0); Mean Platelet Volume 11.2 fL (9.4-12.4); Platelet Count 130 K/mcL (140-400); Red Cell Distribution Width 13.3 % (11.5-14.5)
[2021-02-04 04:17] LABS: Calcium 9.1 mg/dL (8.6-10.3); Magnesium 2.2 mg/dL (1.6-2.6); Potassium 5.2 mEq/L (3.5-5.1)
[2021-02-04 04:19] LABS: Estimated Average Glucose 117 mg/dl; Hemoglobin A1C 5.7 %
[2021-02-04 04:38] LABS: Folate 7.2 ng/mL (3.0-16.0)
[2021-02-04] MEDS: *HR* Heparin 5,000 UNIT/ML VIAL SQ SCH (06:33)
[2021-02-04] MEDS: Azithromycin 250 MG TABLET PO SCH (07:51)
[2021-02-04] MEDS: MethylPREDNISolone 40 MG/ML VIAL IVP SCH (07:52)
[2021-02-04] MEDS ORDERED: Aspirin Enteric Coated 81 MG Tablet PO SCH (09:00)
[2021-02-04 11:24] VITALS: BP 115/58
== END 2021-02-04 15:12 | disposition home or self-care (01) ==
LOC: EMEROOARM 10:54 → 2NENU 10:54 → SUATTDRO 13:07 → 2NENU 14:10
PROVIDERS: ADMIT Internal Medicine; ATTEND Internal Medicine

== ENCOUNTER 2021-05-01 14:37 | Inpatient (IN) ==
[2021-05-01] MEDS ORDERED: Ipratropium/Albuterol Neb 3 ML IH ONE (14:59)
[2021-05-01] MEDS ORDERED: 0.9 % Sodium Chloride 1,000 ML IVC ONE (14:59)
[2021-05-01] MEDS ORDERED: methylPREDNISolone 125 MG/2 ML VIAL IVP ONE (14:59)
[2021-05-01 15:35] LABS: Basophils % 0.3 %; Eosinophils # 0.1 K/mcL (0.0-0.6); Eosinophils % 0.6 %; Hematocrit 38.2 % (35.3-44.9); Hemoglobin 11.5 g/dL (11.5-15.4); Immature Granulocytes % 0.7 % (0-4); Mean Corpuscular HGB Conc 30.1 g/dL (31.6-35.5); Mean Corpuscular Hemoglobin 31.3 pg (28.0-33.3); Mean Corpuscular Volume 103.8 fL (83.0-100.0); Mean Platelet Volume 10.6 fL (9.4-12.4); Monocytes # 0.5 K/mcL (0.0-1.3); Monocytes % 4.8 %; Platelet Count 144 K/mcL (140-400); Red Blood Count 3.68 M/mcL (3.82-4.97); Segmented Neutrophils % 84.6 %; White Blood Count 10.7 K/mcL (4.3-11.1)
[2021-05-01 15:44] LABS: VBG HCO3 40 mEq/L (21-27); VBG PCO2 86 mmHg (41-51); VBG PH 7.27 pH Units (7.32-7.42); VBG PO2 70 mmHg (25-50)
[2021-05-01] MEDS ORDERED: Ondansetron 4 MG/2 ML VIAL IVP ONE (15:51)
[2021-05-01 16:25] LABS: Troponin I < 0.03 ng/mL (< 0.04)
[2021-05-01 16:37] LABS: Influenza A PCR Negative (Negative); Influenza B PCR Negative (Negative); Resp. Syncytial Virus PCR Negative (Negative)
[2021-05-01 17:00] LABS: SARS-CoV-2 by PCR (In House) Negative (Negative)
[2021-05-01 17:01] LABS: Bilirubin,Urine Negative (Negative); Blood,Urine Negative (Negative); Clarity,Urine Clear (Clear); Color,Urine Colorless (Yellow); Glucose,Urine (UA) Normal (Normal); Ketones,Urine Negative (Negative); Leukocyte Esterase,Urine Negative (Negative); Nitrite,Urine Negative (Negative); Protein,Urine Negative (Neg-Trace); Urobilinogen,Urine Normal (Normal)
[2021-05-01] MEDS ORDERED: Azithromycin 500 MG in 0.9 % Sodium Chloride 250 ML IVPB ONE (17:11)
[2021-05-01] MEDS ORDERED: cefTRIAXone 1,000 MG in Water for inj. (sterile) 10 ML IVP ONE (17:11)
[2021-05-01 17:28] LABS: Alanine Aminotransferase 10 Units/L (7-52); Albumin 3.7 g/dL (3.5-5.7); Albumin/Globulin Ratio 1.5 (1.1-2.2); Alkaline Phosphatase 60 Units/L (34-104); Aspartate Amino Transferase 12 Units/L (13-39); BUN/Creatinine Ratio 30 (6-26); Bilirubin,Direct 0.1 mg/dL (0.0-0.2); Bilirubin,Indirect 0.4 mg/dL (0.0-1.0); Bilirubin,Total 0.5 mg/dL (0.3-1.0); Blood Urea Nitrogen 44 mg/dL (8-23); Calcium 9.1 mg/dL (8.6-10.3); Carbon Dioxide 36 mEq/L (23-29); Chloride 101 mEq/L (98-107); Globulin 2.4 g/dL (2.4-3.5); Glucose 137 mg/dL (70-105); Lipase 100 Units/L (11-82); Osmolality,Calculated 307 (280-300); Potassium 5.6 mEq/L (3.5-5.1); Sodium 142 mEq/L (136-145); Total Protein 6.1 g/dL (6.4-8.9); eGFR For African Americans 42 (> 60); eGFR For Non-African Americans 35 (> 60)
[2021-05-01] MEDS ORDERED: *HR* Dextrose 50 % in Water (Vial) 50 ML VIAL IVP ONE (17:36)
[2021-05-01] MEDS ORDERED: Insulin Human Regular 10 UNIT in 0.9 % Sodium Chloride 10 ML IV ONE (17:36)
[2021-05-01] MEDS ORDERED: Ondansetron 4 MG/2 ML VIAL IVP PRN (18:04)
[2021-05-01] MEDS ORDERED: Naloxone 0.4 MG/ML INJ IVP PRN (18:04)
[2021-05-01] MEDS: Calcium Gluconate 1gm/50mL 1 GM/50 ML BAG IVPB SCH ×2 (18:24→19:28)
[2021-05-01 20:46] LABS: Potassium 4.7 mEq/L (3.5-5.1)
[2021-05-01] MEDS: Ipratropium/Albuterol Neb 3 ML IH SCH ×2 (22:34→23:44)
[2021-05-01] MEDS: Budesonide/Formoterol 160/4.5 1 PUFF INH IH SCH (23:15)
[2021-05-02] MEDS: methylPREDNISolone 125 MG/2 ML VIAL IVP SCH ×4 (01:28→23:09)
[2021-05-02 01:31] LABS: Basophils % 0.1 %; Hematocrit 36.2 % (35.3-44.9); Hemoglobin 10.9 g/dL (11.5-15.4); Immature Granulocytes % 0.8 % (0-4); Lymphocytes # 0.4 K/mcL (0.6-4.6); Lymphocytes % 5.1 %; Mean Corpuscular HGB Conc 30.1 g/dL (31.6-35.5); Mean Corpuscular Hemoglobin 30.8 pg (28.0-33.3); Mean Corpuscular Volume 102.3 fL (83.0-100.0); Mean Platelet Volume 10.4 fL (9.4-12.4); Monocytes # 0.1 K/mcL (0.0-1.3); Monocytes % 0.6 %; Neutrophils # 7.8 K/mcL (1.6-8.9); Platelet Count 133 K/mcL (140-400); Red Blood Count 3.54 M/mcL (3.82-4.97); Red Cell Distribution Width 12.8 % (11.5-14.5); Segmented Neutrophils % 93.4 %; White Blood Count 8.3 K/mcL (4.3-11.1)
[2021-05-02 01:37] LABS: VBG HCO3 33 mEq/L (21-27); VBG PCO2 57 mmHg (41-51); VBG PH 7.37 pH Units (7.32-7.42); VBG PO2 88 mmHg (25-50)
[2021-05-02 01:56] LABS: Calcium 9.2 mg/dL (8.6-10.3); Magnesium 2.3 mg/dL (1.6-2.6); Phosphorous 3.9 mg/dL (2.7-4.5); Potassium 5.5 mEq/L (3.5-5.1)
[2021-05-02] MEDS: Ipratropium/Albuterol Neb 3 ML IH SCH ×5 (04:40→19:42)
[2021-05-02] MEDS: *HR* Heparin 5,000 UNIT/ML VIAL SQ SCH ×2 (05:06→17:47)
[2021-05-02] MEDS: Budesonide/Formoterol 160/4.5 1 PUFF INH IH SCH ×2 (07:35→19:42)
[2021-05-02] MEDS ORDERED: MethylPREDNISolone 40 MG/ML VIAL IVP SCH ×2 (09:00)
[2021-05-02] MEDS ORDERED: SODIUM ZIRCONIUM CYCLOSILICATE 5 GM POWD.PACK PO SCH (09:00)
[2021-05-02] MEDS ORDERED: Insulin Human Regular 10 UNIT in 0.9 % Sodium Chloride 10 ML IV ONE (09:33)
[2021-05-02] MEDS ORDERED: *HR* Dextrose 50 % in Water (Vial) 50 ML VIAL IVP ONE (09:34)
[2021-05-02] MEDS ORDERED: Calcium Gluconate 1gm/50mL 1 GM/50 ML BAG IVPB ONE (09:34)
[2021-05-02] MEDS ORDERED: Acetaminophen 325 MG TABLET PO ONE (10:05)
[2021-05-02] MEDS: cefTRIAXone 1,000 MG in Water for inj. (sterile) 10 ML IVP SCH (15:12)
[2021-05-02] MEDS ORDERED: Azithromycin 500 MG in 0.9 % Sodium Chloride 250 ML IVPB SCH (19:00)
[2021-05-02] MEDS ORDERED: Dextrose Gel 15 GM/37.5 ML TUBE PO PRN ×2 (21:07)
[2021-05-02] MEDS ORDERED: D5% in Water 1,000 ML IVC PRN (21:07)
[2021-05-02] MEDS ORDERED: *HR* Dextrose 50 % in Water (Vial) 50 ML VIAL IVP PRN (21:07)
[2021-05-02] MEDS: Insulin LISPRO 300 UNITS/3 ML VIAL SUBQ SCH (23:09)
[2021-05-03] MEDS: Ipratropium/Albuterol Neb 3 ML IH SCH ×7 (00:10→23:44)
[2021-05-03] MEDS ORDERED: Acetaminophen 325 MG TABLET PO ONE (01:06)
[2021-05-03 02:26] LABS: Hematocrit 34.2 % (35.3-44.9); Hemoglobin 10.6 g/dL (11.5-15.4); Mean Corpuscular Hemoglobin 31.4 pg (28.0-33.3); Mean Corpuscular Volume 101.2 fL (83.0-100.0); Mean Platelet Volume 11.3 fL (9.4-12.4); Platelet Count 131 K/mcL (140-400); Red Blood Count 3.38 M/mcL (3.82-4.97); Red Cell Distribution Width 12.8 % (11.5-14.5)
[2021-05-03 02:45] LABS: Calcium 9.5 mg/dL (8.6-10.3); Potassium 5.1 mEq/L (3.5-5.1)
[2021-05-03] MEDS: *HR* Heparin 5,000 UNIT/ML VIAL SQ SCH ×2 (05:58→17:32)
[2021-05-03] MEDS: cefTRIAXone 1,000 MG in Water for inj. (sterile) 10 ML IVP SCH (07:30)
[2021-05-03] MEDS: Insulin LISPRO 300 UNITS/3 ML VIAL SUBQ SCH ×4 (07:30→23:17)
[2021-05-03] MEDS: methylPREDNISolone 125 MG/2 ML VIAL IVP SCH ×3 (07:31→23:26)
[2021-05-03] MEDS: Budesonide/Formoterol 160/4.5 1 PUFF INH IH SCH ×2 (07:41→19:50)
[2021-05-03] MEDS: Acetaminophen 325 MG TABLET PO PRN ×2 (17:32→23:41)
[2021-05-04] MEDS: Ipratropium/Albuterol Neb 3 ML IH SCH ×5 (03:56→19:32)
[2021-05-04] MEDS: *HR* Heparin 5,000 UNIT/ML VIAL SQ SCH ×2 (05:18→18:16)
[2021-05-04] MEDS: Budesonide/Formoterol 160/4.5 1 PUFF INH IH SCH ×2 (07:24→19:32)
[2021-05-04] MEDS: Azithromycin 250 MG TABLET PO SCH (08:40)
[2021-05-04] MEDS: methylPREDNISolone 125 MG/2 ML VIAL IVP SCH (08:40)
[2021-05-04] MEDS: Insulin LISPRO 300 UNITS/3 ML VIAL SUBQ SCH ×4 (08:41→21:47)
[2021-05-04] MEDS: Furosemide 20 MG TABLET PO SCH (15:15)
[2021-05-04] MEDS: Acetaminophen 325 MG TABLET PO PRN (20:34)
[2021-05-04] MEDS: Gabapentin 100 MG CAPSULE PO SCH (20:35)
[2021-05-05] MEDS: Ipratropium/Albuterol Neb 3 ML IH SCH ×7 (00:05→23:23)
[2021-05-05] MEDS: *HR* Heparin 5,000 UNIT/ML VIAL SQ SCH ×2 (05:25→17:41)
[2021-05-05 05:59] LABS: Basophils % 0.1 %; Hematocrit 35.1 % (35.3-44.9); Hemoglobin 10.8 g/dL (11.5-15.4); Immature Granulocytes % 1.2 % (0-4); Lymphocytes % 11.7 %; Mean Corpuscular HGB Conc 30.8 g/dL (31.6-35.5); Mean Corpuscular Hemoglobin 30.4 pg (28.0-33.3); Mean Corpuscular Volume 98.9 fL (83.0-100.0); Mean Platelet Volume 11.2 fL (9.4-12.4); Monocytes # 0.9 K/mcL (0.0-1.3); Monocytes % 10.5 %; Neutrophils # 6.8 K/mcL (1.6-8.9); Platelet Count 127 K/mcL (140-400); Red Blood Count 3.55 M/mcL (3.82-4.97); Red Cell Distribution Width 12.7 % (11.5-14.5); Segmented Neutrophils % 76.5 %; White Blood Count 8.9 K/mcL (4.3-11.1)
[2021-05-05 06:20] LABS: Calcium 9.3 mg/dL (8.6-10.3); Potassium 4.9 mEq/L (3.5-5.1)
[2021-05-05] MEDS: Budesonide/Formoterol 160/4.5 1 PUFF INH IH SCH ×2 (07:12→19:47)
[2021-05-05] MEDS: Insulin LISPRO 300 UNITS/3 ML VIAL SUBQ SCH ×4 (08:27→21:53)
[2021-05-05] MEDS: predniSONE 20 MG TABLET PO SCH (08:40)
[2021-05-05] MEDS: Azithromycin 250 MG TABLET PO SCH (08:40)
[2021-05-05] MEDS: Furosemide 20 MG TABLET PO SCH (08:40)
[2021-05-05] MEDS: Aspirin 325 MG TABLET PO SCH (08:41)
[2021-05-05] MEDS: lisinopriL 5 MG TABLET PO SCH (08:41)
[2021-05-05] MEDS: Gabapentin 100 MG CAPSULE PO SCH (19:35)
[2021-05-05] MEDS: Acetaminophen 325 MG TABLET PO PRN (19:35)
[2021-05-06] MEDS: Ipratropium/Albuterol Neb 3 ML IH SCH ×4 (04:53→15:38)
[2021-05-06] MEDS: *HR* Heparin 5,000 UNIT/ML VIAL SQ SCH (05:04)
[2021-05-06 06:36] LABS: Hematocrit 36.5 % (35.3-44.9); Hemoglobin 11.2 g/dL (11.5-15.4); Immature Platelets 6.4 % (1.1-6.1); Mean Corpuscular HGB Conc 30.7 g/dL (31.6-35.5); Mean Corpuscular Hemoglobin 30.5 pg (28.0-33.3); Mean Corpuscular Volume 99.5 fL (83.0-100.0); Mean Platelet Volume 11.1 fL (9.4-12.4); Red Blood Count 3.67 M/mcL (3.82-4.97); White Blood Count 8.6 K/mcL (4.3-11.1)
[2021-05-06 06:49] LABS: Calcium 8.8 mg/dL (8.6-10.3); Potassium 4.2 mEq/L (3.5-5.1)
[2021-05-06] MEDS: Budesonide/Formoterol 160/4.5 1 PUFF INH IH SCH (07:29)
[2021-05-06] MEDS: Furosemide 20 MG TABLET PO SCH (08:02)
[2021-05-06] MEDS: Aspirin 325 MG TABLET PO SCH (08:02)
[2021-05-06] MEDS: Azithromycin 250 MG TABLET PO SCH (08:02)
[2021-05-06] MEDS: lisinopriL 5 MG TABLET PO SCH (08:02)
[2021-05-06] MEDS: predniSONE 20 MG TABLET PO SCH (08:02)
[2021-05-06] MEDS: Insulin LISPRO 300 UNITS/3 ML VIAL SUBQ SCH ×2 (09:52→12:08)
[2021-05-06 10:54] VITALS: BP 118/70; PULSE 85; TEMP 98.4
[2021-05-06 13:00] VITALS: O2SAT 91
== END 2021-05-06 15:55 | disposition home or self-care (01) | DRG 190 ==
LOC: 2ANU 14:37 → EMEROOARM 14:37 → SUATTDRO 22:13 → 2ANU 05-02 00:15
PROVIDERS: ADMIT Internal Medicine; ATTEND Internal Medicine

== ENCOUNTER 2021-06-18 11:35 | Inpatient (IN) ==
[2021-06-18] MEDS ORDERED: Isovue-370 500 ML BOTTLE IVP ONE (12:21)
[2021-06-18] MEDS ORDERED: Metoclopramide 10 MG/2 ML VIAL IVP ONE (12:57)
[2021-06-18] MEDS ORDERED: cefTRIAXone 1,000 MG in 0.9 % Sodium Chloride Mini Bag 100 ML IVPB ONE (13:08)
[2021-06-18] MEDS ORDERED: Azithromycin 500 MG in 0.9 % Sodium Chloride 250 ML IVPB ONE (13:08)
[2021-06-18 13:09] LABS: VBG HCO3 44 mEq/L (21-27); VBG PCO2 108 mmHg (41-51); VBG PH 7.22 pH Units (7.32-7.42); VBG PO2 70 mmHg (25-50)
[2021-06-18] MEDS ORDERED: cefTRIAXone 1,000 MG in Water for inj. (sterile) 10 ML IVP ONE (13:23)
[2021-06-18] MEDS ORDERED: methylPREDNISolone 125 MG/2 ML VIAL IVP ONE (13:35)
[2021-06-18] MEDS ORDERED: Ipratropium/Albuterol Neb 3 ML IH ONE (13:36)
[2021-06-18 13:38] LABS: Basophils # 0.1 K/mcL (0.0-0.2); Basophils % 0.5 %; Eosinophils # 0.1 K/mcL (0.0-0.6); Hemoglobin 11.8 g/dL (11.5-15.4); Immature Granulocytes % 1.2 % (0-4); Lymphocytes % 16.6 %; Mean Corpuscular HGB Conc 29.5 g/dL (31.6-35.5); Monocytes # 1.3 K/mcL (0.0-1.3); Neutrophils # 8.4 K/mcL (1.6-8.9); Platelet Count 187 K/mcL (140-400); Red Blood Count 3.81 M/mcL (3.82-4.97); Red Cell Distribution Width 13.5 % (11.5-14.5); Segmented Neutrophils % 69.7 %; White Blood Count 12.1 K/mcL (4.3-11.1)
[2021-06-18 13:39] LABS: Bilirubin,Urine Negative (Negative); Blood,Urine Negative (Negative); Clarity,Urine Clear (Clear); Color,Urine Light-Yellow (Yellow); Glucose,Urine (UA) Normal (Normal); Ketones,Urine Negative (Negative); Leukocyte Esterase,Urine Negative (Negative); Nitrite,Urine Negative (Negative); PH,Urine 5.5 pH Units (5.0-8.0); Protein,Urine Negative (Neg-Trace); Specific Gravity,Urine 1.022 (1.010-1.025); Urobilinogen,Urine Normal (Normal)
[2021-06-18 13:58] LABS: Troponin I < 0.03 ng/mL (< 0.04)
[2021-06-18 14:31] LABS: Alanine Aminotransferase 13 Units/L (7-52); Albumin 3.8 g/dL (3.5-5.7); Albumin/Globulin Ratio 1.8 (1.1-2.2); Alkaline Phosphatase 64 Units/L (34-104); Aspartate Amino Transferase 16 Units/L (13-39); BUN/Creatinine Ratio 27 (6-26); Bilirubin,Direct 0.1 mg/dL (0.0-0.2); Bilirubin,Indirect 0.3 mg/dL (0.0-1.0); Bilirubin,Total 0.4 mg/dL (0.3-1.0); Blood Urea Nitrogen 33 mg/dL (8-23); Calcium 9.3 mg/dL (8.6-10.3); Carbon Dioxide 40 mEq/L (23-29); Chloride 100 mEq/L (98-107); Globulin 2.1 g/dL (2.4-3.5); Glucose 134 mg/dL (70-105); Lipase 103 Units/L (11-82); Osmolality,Calculated 309 (280-300); Potassium 4.3 mEq/L (3.5-5.1); Sodium 145 mEq/L (136-145); Total Protein 5.9 g/dL (6.4-8.9); eGFR For African Americans 52 (> 60); eGFR For Non-African Americans 43 (> 60)
[2021-06-18 16:04] LABS: VBG HCO3 37 mEq/L (21-27); VBG PCO2 66 mmHg (41-51); VBG PH 7.36 pH Units (7.32-7.42); VBG PO2 186 mmHg (25-50)
[2021-06-18] MEDS ORDERED: MOM Conc 10 ML UD.LIQ PO PRN (17:30)
[2021-06-18] MEDS ORDERED: Albuterol 2.5 MG/3 ML NEBULIZER IH PRN (17:30)
[2021-06-18] MEDS ORDERED: Ondansetron 4 MG/2 ML VIAL IVP PRN (17:30)
[2021-06-18] MEDS ORDERED: Naloxone 0.4 MG/ML INJ IVP PRN (17:30)
[2021-06-18] MEDS: MethylPREDNISolone 40 MG/ML VIAL IVP SCH (18:23)
[2021-06-18] MEDS: lisinopriL 5 MG TABLET PO SCH (20:12)
[2021-06-18] MEDS: Gabapentin 100 MG CAPSULE PO SCH (20:12)
[2021-06-18] MEDS: Ipratropium/Albuterol Neb 3 ML IH SCH (20:26)
[2021-06-18] MEDS: Budesonide/Formoterol 160/4.5 1 PUFF INH IH SCH (20:26)
[2021-06-19] MEDS: MethylPREDNISolone 40 MG/ML VIAL IVP SCH ×4 (00:19→18:45)
[2021-06-19] MEDS: Piperacillin/Tazobactam 3.375 GM in 0.9 % Sodium Chloride Mini Bag 100 ML IVPB SCH ×3 (00:21→16:45)
[2021-06-19 01:11] LABS: Basophils % 0.1 %; Hematocrit 37.1 % (35.3-44.9); Hemoglobin 11.5 g/dL (11.5-15.4); Immature Granulocytes % 1.5 % (0-4); Lymphocytes # 0.9 K/mcL (0.6-4.6); Lymphocytes % 10.3 %; Mean Corpuscular Hemoglobin 31.3 pg (28.0-33.3); Mean Corpuscular Volume 101.1 fL (83.0-100.0); Mean Platelet Volume 10.8 fL (9.4-12.4); Monocytes # 0.1 K/mcL (0.0-1.3); Monocytes % 0.9 %; Neutrophils # 7.6 K/mcL (1.6-8.9); Platelet Count 170 K/mcL (140-400); Red Blood Count 3.67 M/mcL (3.82-4.97); Red Cell Distribution Width 13.2 % (11.5-14.5); Segmented Neutrophils % 87.2 %; White Blood Count 8.7 K/mcL (4.3-11.1)
[2021-06-19] MEDS: Ipratropium/Albuterol Neb 3 ML IH SCH ×4 (04:11→21:38)
[2021-06-19 05:27] LABS: Calcium 8.8 mg/dL (8.6-10.3); Magnesium 2.4 mg/dL (1.6-2.6); Potassium 5.6 mEq/L (3.5-5.1)
[2021-06-19] MEDS: Furosemide 20 MG TABLET PO SCH (08:46)
[2021-06-19] MEDS: lisinopriL 5 MG TABLET PO SCH ×2 (08:46→19:37)
[2021-06-19] MEDS: Aspirin 325 MG TABLET PO SCH (08:46)
[2021-06-19] MEDS ORDERED: Calcium Gluconate 1gm/50mL 1 GM/50 ML BAG IVPB ONE (08:53)
[2021-06-19] MEDS ORDERED: Azithromycin 500 MG in 0.9 % Sodium Chloride 250 ML IVPB SCH (09:00)
[2021-06-19] MEDS ORDERED: cefTRIAXone 1,000 MG in Water for inj. (sterile) 10 ML IVP SCH (09:00)
[2021-06-19 10:09] LABS: Calcium 9.4 mg/dL (8.6-10.3); Potassium 5.1 mEq/L (3.5-5.1)
[2021-06-19] MEDS: Budesonide/Formoterol 160/4.5 1 PUFF INH IH SCH ×2 (10:56→21:38)
[2021-06-19 11:45] LABS: Influenza A PCR Negative (Negative); Influenza B PCR Negative (Negative); Resp. Syncytial Virus PCR Negative (Negative); SARS-CoV-2 by PCR (In House) Negative (Negative)
[2021-06-19] MEDS: Azithromycin 500 MG in 0.9 % Sodium Chloride 250 ML IVPB SCH (14:21)
[2021-06-19] MEDS: *HR* Heparin 5,000 UNIT/ML VIAL SQ SCH ×2 (14:22→21:38)
[2021-06-19] MEDS: Acetaminophen 325 MG TABLET PO PRN (18:46)
[2021-06-19] MEDS: Gabapentin 100 MG CAPSULE PO SCH (19:37)
[2021-06-20] MEDS: Piperacillin/Tazobactam 3.375 GM in 0.9 % Sodium Chloride Mini Bag 100 ML IVPB SCH ×4 (00:14→23:47)
[2021-06-20] MEDS: MethylPREDNISolone 40 MG/ML VIAL IVP SCH ×3 (00:15→12:26)
[2021-06-20 02:09] LABS: Basophils % 0.1 %; Hematocrit 36.2 % (35.3-44.9); Hemoglobin 11.4 g/dL (11.5-15.4); Immature Granulocytes % 1.2 % (0-4); Lymphocytes # 0.6 K/mcL (0.6-4.6); Lymphocytes % 5.2 %; Mean Corpuscular HGB Conc 31.5 g/dL (31.6-35.5); Mean Corpuscular Hemoglobin 31.8 pg (28.0-33.3); Mean Corpuscular Volume 101.1 fL (83.0-100.0); Mean Platelet Volume 11.4 fL (9.4-12.4); Monocytes # 0.5 K/mcL (0.0-1.3); Neutrophils # 10.8 K/mcL (1.6-8.9); Platelet Count 160 K/mcL (140-400); Red Blood Count 3.58 M/mcL (3.82-4.97); Segmented Neutrophils % 89.5 %
[2021-06-20 02:29] LABS: Calcium 9.1 mg/dL (8.6-10.3); Potassium 4.6 mEq/L (3.5-5.1)
[2021-06-20] MEDS: Acetaminophen 325 MG TABLET PO PRN ×3 (03:56→23:49)
[2021-06-20] MEDS: Ipratropium/Albuterol Neb 3 ML IH SCH ×4 (04:11→22:38)
[2021-06-20] MEDS: *HR* Heparin 5,000 UNIT/ML VIAL SQ SCH ×3 (05:18→21:00)
[2021-06-20] MEDS: Furosemide 20 MG TABLET PO SCH (08:03)
[2021-06-20] MEDS: Aspirin 325 MG TABLET PO SCH (08:03)
[2021-06-20] MEDS: lisinopriL 5 MG TABLET PO SCH ×2 (08:20→20:59)
[2021-06-20] MEDS ORDERED: 0.9 % Sodium Chloride 1,000 ML IVC ONE (09:05)
[2021-06-20] MEDS: Budesonide/Formoterol 160/4.5 1 PUFF INH IH SCH ×2 (10:29→22:41)
[2021-06-20] MEDS: predniSONE 20 MG TABLET PO SCH ×2 (12:30→17:17)
[2021-06-20] MEDS: Azithromycin 500 MG in 0.9 % Sodium Chloride 250 ML IVPB SCH (14:03)
[2021-06-20] MEDS: Gabapentin 100 MG CAPSULE PO SCH (20:59)
[2021-06-21] MEDS: Ipratropium/Albuterol Neb 3 ML IH SCH ×4 (03:30→19:36)
[2021-06-21] MEDS: *HR* Heparin 5,000 UNIT/ML VIAL SQ SCH ×3 (05:40→20:20)
[2021-06-21 07:24] LABS: Calcium 8.9 mg/dL (8.6-10.3); Potassium 4.4 mEq/L (3.5-5.1)
[2021-06-21 07:36] LABS: Basophils % 0.1 %; Hematocrit 34.1 % (35.3-44.9); Hemoglobin 10.8 g/dL (11.5-15.4); Immature Granulocytes % 1.7 % (0-4); Lymphocytes # 0.9 K/mcL (0.6-4.6); Lymphocytes % 7.6 %; Mean Corpuscular HGB Conc 31.7 g/dL (31.6-35.5); Mean Corpuscular Hemoglobin 31.6 pg (28.0-33.3); Mean Corpuscular Volume 99.7 fL (83.0-100.0); Mean Platelet Volume 10.9 fL (9.4-12.4); Monocytes % 7.9 %; Platelet Count 154 K/mcL (140-400); Red Blood Count 3.42 M/mcL (3.82-4.97); Red Cell Distribution Width 13.1 % (11.5-14.5); Segmented Neutrophils % 82.7 %; White Blood Count 12.1 K/mcL (4.3-11.1)
[2021-06-21] MEDS ORDERED: Furosemide 20 MG/2 ML VIAL IVP ONE (09:24)
[2021-06-21] MEDS: lisinopriL 5 MG TABLET PO SCH ×2 (10:26→10:27)
[2021-06-21] MEDS: Piperacillin/Tazobactam 3.375 GM in 0.9 % Sodium Chloride Mini Bag 100 ML IVPB SCH ×2 (10:26→17:17)
[2021-06-21] MEDS: Aspirin 325 MG TABLET PO SCH (10:26)
[2021-06-21] MEDS: predniSONE 20 MG TABLET PO SCH ×3 (10:26→17:16)
[2021-06-21] MEDS: Budesonide/Formoterol 160/4.5 1 PUFF INH IH SCH ×2 (11:49→19:40)
[2021-06-21] MEDS: Azithromycin 500 MG in 0.9 % Sodium Chloride 250 ML IVPB SCH (13:44)
[2021-06-21] MEDS: Acetaminophen 325 MG TABLET PO PRN ×2 (13:45→20:19)
[2021-06-21] MEDS: Gabapentin 100 MG CAPSULE PO SCH (20:19)
[2021-06-22] MEDS: Piperacillin/Tazobactam 3.375 GM in 0.9 % Sodium Chloride Mini Bag 100 ML IVPB SCH ×2 (00:09→07:10)
[2021-06-22 02:42] LABS: Basophils % 0.2 %; Hemoglobin 10.6 g/dL (11.5-15.4); Immature Granulocytes % 3.3 % (0-4); Lymphocytes # 0.7 K/mcL (0.6-4.6); Mean Corpuscular HGB Conc 32.1 g/dL (31.6-35.5); Mean Corpuscular Volume 99.7 fL (83.0-100.0); Mean Platelet Volume 11.1 fL (9.4-12.4); Monocytes # 0.5 K/mcL (0.0-1.3); Monocytes % 4.8 %; Neutrophils # 8.5 K/mcL (1.6-8.9); Platelet Count 147 K/mcL (140-400); Red Blood Count 3.31 M/mcL (3.82-4.97); Segmented Neutrophils % 84.7 %
[2021-06-22 03:07] LABS: Calcium 8.5 mg/dL (8.6-10.3); Potassium 4.4 mEq/L (3.5-5.1)
[2021-06-22] MEDS: Ipratropium/Albuterol Neb 3 ML IH SCH ×2 (03:09→11:25)
[2021-06-22] MEDS: *HR* Heparin 5,000 UNIT/ML VIAL SQ SCH ×2 (05:58→12:25)
[2021-06-22 06:42] VITALS: BP 121/71; PULSE 88; TEMP 97.3
[2021-06-22] MEDS: predniSONE 20 MG TABLET PO SCH ×2 (07:24→12:23)
[2021-06-22] MEDS: lisinopriL 5 MG TABLET PO SCH (07:24)
[2021-06-22] MEDS: Aspirin 325 MG TABLET PO SCH (07:24)
[2021-06-22] MEDS: Budesonide/Formoterol 160/4.5 1 PUFF INH IH SCH (11:25)
[2021-06-22 11:28] VITALS: O2SAT 95
[2021-06-22] MEDS: Acetaminophen 325 MG TABLET PO PRN (12:23)
[2021-06-22] MEDS: Azithromycin 500 MG in 0.9 % Sodium Chloride 250 ML IVPB SCH (12:25)
== END 2021-06-22 14:44 | disposition home or self-care (01) | DRG 189 ==
LOC: 2ANU 11:35 → EMEROOARM 11:35 → SUATTDRO 16:46 → 2ANU 17:59
PROVIDERS: ADMIT Family Medicine; ATTEND Internal Medicine

== ENCOUNTER 2021-09-07 13:24 | Inpatient (IN) ==
[2021-09-07] MEDS ORDERED: methylPREDNISolone 125 MG/2 ML VIAL IVP ONE (14:20)
[2021-09-07] MEDS ORDERED: Ipratropium/Albuterol Neb 3 ML IH ONE (14:22)
[2021-09-07 14:52] LABS: Basophils % 0.2 %; Eosinophils # 0.1 K/mcL (0.0-0.6); Eosinophils % 1.3 %; Hematocrit 40.5 % (35.3-44.9); Hemoglobin 11.7 g/dL (11.5-15.4); Lymphocytes % 13.2 %; Mean Corpuscular HGB Conc 28.9 g/dL (31.6-35.5); Mean Corpuscular Hemoglobin 31.5 pg (28.0-33.3); Mean Corpuscular Volume 109.2 fL (83.0-100.0); Mean Platelet Volume 10.5 fL (9.4-12.4); Monocytes # 0.8 K/mcL (0.0-1.3); Monocytes % 8.1 %; Neutrophils # 7.2 K/mcL (1.6-8.9); Platelet Count 146 K/mcL (140-400); Red Blood Count 3.71 M/mcL (3.82-4.97); Red Cell Distribution Width 15.1 % (11.5-14.5); Segmented Neutrophils % 76.2 %; White Blood Count 9.4 K/mcL (4.3-11.1)
[2021-09-07 14:53] LABS: Lymphocytes # 1.2 K/mcL (0.6-4.6)
[2021-09-07 15:14] LABS: Bilirubin,Urine Negative (Negative); Blood,Urine Trace (Negative); Clarity,Urine Turbid (Clear); Color,Urine Light-Yellow (Yellow); Glucose,Urine (UA) Normal (Normal); Hyaline Casts,Urine Few per lpf (None Seen); Ketones,Urine Negative (Negative); Leukocyte Esterase,Urine Large (Negative); Mucus,Urine Few per lpf (None-Few); Nitrite,Urine Negative (Negative); Protein,Urine Negative (Neg-Trace); RBC,Urine 0-3 per hpf (0-3); Specific Gravity,Urine 1.014 (1.010-1.025); Urobilinogen,Urine Normal (Normal); WBC,Urine TNTC per hpf (0-3)
[2021-09-07 15:20] LABS: Alanine Aminotransferase 14 Units/L (7-52); Albumin 3.5 g/dL (3.5-5.7); Albumin/Globulin Ratio 1.5 (1.1-2.2); Alkaline Phosphatase 79 Units/L (34-104); Aspartate Amino Transferase 15 Units/L (13-39); BUN/Creatinine Ratio 15 (6-26); Bilirubin,Total 0.5 mg/dL (0.3-1.0); Blood Urea Nitrogen 23 mg/dL (8-23); Calcium 9.1 mg/dL (8.6-10.3); Carbon Dioxide > 45 mEq/L (23-29); Chloride 96 mEq/L (98-107); Globulin 2.3 g/dL (2.4-3.5); Glucose 114 mg/dL (70-105); Osmolality,Calculated 303 (280-300); Potassium 4.3 mEq/L (3.5-5.1); Sodium 144 mEq/L (136-145); Total Protein 5.8 g/dL (6.4-8.9); Troponin I < 0.03 ng/mL (< 0.04); eGFR For African Americans 41 (> 60); eGFR For Non-African Americans 33 (> 60)
[2021-09-07] MEDS ORDERED: Piperacillin/Tazobactam 3.375 GM in 0.9 % Sodium Chloride Mini Bag 100 ML IVPB ONE (15:21)
[2021-09-07 15:27] LABS: ABG Base Excess 19 mEq/L (-2 to 3); ABG HCO3 51 mEq/L (21-27); ABG Oxygen Saturation 92 % (95-98); ABG PCO2 113 mmHg (35-45); ABG PH 7.27 pH Units (7.32-7.45); ABG PO2 80 mmHg (85-104); ABG TCO2 > 50 mEq/L (20-26)
[2021-09-07] MEDS ORDERED: Albuterol 2.5 MG/3 ML NEBULIZER IH ONE (15:45)
[2021-09-07 15:48] LABS: Influenza A PCR Negative (Negative); Influenza B PCR Negative (Negative); Resp. Syncytial Virus PCR Negative (Negative)
[2021-09-07 15:50] LABS: SARS-CoV-2 by PCR (In House) Negative (Negative)
[2021-09-07] MEDS ORDERED: Naloxone 0.4 MG/ML INJ IVP PRN (15:52)
[2021-09-07] MEDS: Azithromycin 500 MG in 0.9 % Sodium Chloride 250 ML IVPB SCH (20:12)
[2021-09-07] MEDS: MethylPREDNISolone 40 MG/ML VIAL IVP SCH (20:15)
[2021-09-07] MEDS: Ipratropium/Albuterol Neb 3 ML IH SCH (20:17)
[2021-09-07] MEDS: Gabapentin 100 MG CAPSULE PO SCH (23:24)
[2021-09-08] MEDS: Ipratropium/Albuterol Neb 3 ML IH SCH ×6 (00:27→19:51)
[2021-09-08] MEDS: MethylPREDNISolone 40 MG/ML VIAL IVP SCH ×5 (00:42→23:06)
[2021-09-08 03:29] LABS: Basophils % 0.1 %; Hematocrit 36.7 % (35.3-44.9); Hemoglobin 10.9 g/dL (11.5-15.4); Immature Granulocytes % 0.8 % (0-4); Lymphocytes # 0.5 K/mcL (0.6-4.6); Lymphocytes % 6.4 %; Mean Corpuscular HGB Conc 29.7 g/dL (31.6-35.5); Mean Corpuscular Hemoglobin 31.8 pg (28.0-33.3); Monocytes % 0.5 %; Platelet Count 151 K/mcL (140-400); Red Blood Count 3.43 M/mcL (3.82-4.97); Red Cell Distribution Width 14.4 % (11.5-14.5); Segmented Neutrophils % 92.2 %; White Blood Count 7.6 K/mcL (4.3-11.1)
[2021-09-08 03:57] LABS: Potassium 5.2 mEq/L (3.5-5.1)
[2021-09-08 05:01] LABS: ABG Base Excess 21 mEq/L (-2 to 3); ABG HCO3 52 mEq/L (21-27); ABG Oxygen Saturation 99 % (95-98); ABG PCO2 94 mmHg (35-45); ABG PH 7.35 pH Units (7.32-7.45); ABG PO2 131 mmHg (85-104); ABG TCO2 > 50 mEq/L (20-26)
[2021-09-08] MEDS: *HR* Enoxaparin 40 MG/0.4 ML SYRINGE SQ SCH (05:46)
[2021-09-08] MEDS ORDERED: TIOTROPIUM BROMIDE IH SCH (09:00)
[2021-09-08] MEDS ORDERED: lisinopriL 5 MG TABLET PO SCH (09:00)
[2021-09-08] MEDS ORDERED: ACTUA IH SCH (09:00)
[2021-09-08] MEDS: Furosemide 40 MG TABLET PO SCH (09:13)
[2021-09-08] MEDS: Aspirin 325 MG TABLET PO SCH (09:13)
[2021-09-08] MEDS: cefTRIAXone 2,000 MG in 0.9 % Sodium Chloride Mini Bag 100 ML IVPB SCH (09:14)
[2021-09-08] MEDS: Azithromycin 500 MG in 0.9 % Sodium Chloride 250 ML IVPB SCH (16:27)
[2021-09-08] MEDS: Gabapentin 100 MG CAPSULE PO SCH (20:21)
[2021-09-08] MEDS: Acetaminophen 325 MG TABLET PO PRN (23:06)
[2021-09-09] MEDS: Ipratropium/Albuterol Neb 3 ML IH SCH ×6 (00:15→21:06)
[2021-09-09 01:29] LABS: Basophils % 0.1 %; Hematocrit 33.7 % (35.3-44.9); Hemoglobin 10.3 g/dL (11.5-15.4); Immature Granulocytes % 0.8 % (0-4); Lymphocytes # 0.7 K/mcL (0.6-4.6); Lymphocytes % 7.7 %; Mean Corpuscular HGB Conc 30.6 g/dL (31.6-35.5); Mean Corpuscular Hemoglobin 31.8 pg (28.0-33.3); Mean Platelet Volume 10.8 fL (9.4-12.4); Monocytes # 0.3 K/mcL (0.0-1.3); Monocytes % 2.7 %; Neutrophils # 8.6 K/mcL (1.6-8.9); Nucleated Red Blood Cells 0.2 /100 WBC (0); Platelet Count 150 K/mcL (140-400); Red Blood Count 3.24 M/mcL (3.82-4.97); Red Cell Distribution Width 13.9 % (11.5-14.5); Segmented Neutrophils % 88.7 %; White Blood Count 9.7 K/mcL (4.3-11.1)
[2021-09-09 01:56] LABS: Calcium 8.8 mg/dL (8.6-10.3); Potassium 4.7 mEq/L (3.5-5.1)
[2021-09-09] MEDS: MethylPREDNISolone 40 MG/ML VIAL IVP SCH ×4 (04:43→23:09)
[2021-09-09] MEDS: *HR* Enoxaparin 40 MG/0.4 ML SYRINGE SQ SCH (04:44)
[2021-09-09 08:58] LABS: ABG Base Excess 17 mEq/L (-2 to 3); ABG HCO3 46 mEq/L (21-27); ABG Oxygen Saturation 58 % (95-98); ABG PCO2 78 mmHg (35-45); ABG PH 7.38 pH Units (7.32-7.45); ABG PO2 33 mmHg (85-104); ABG TCO2 49 mEq/L (20-26)
[2021-09-09 09:09] LABS: ABG Base Excess 16 mEq/L (-2 to 3); ABG HCO3 43 mEq/L (21-27); ABG Oxygen Saturation 58 % (95-98); ABG PCO2 71 mmHg (35-45); ABG PH 7.39 pH Units (7.32-7.45); ABG PO2 32 mmHg (85-104); ABG TCO2 46 mEq/L (20-26)
[2021-09-09] MEDS: cefTRIAXone 2,000 MG in 0.9 % Sodium Chloride Mini Bag 100 ML IVPB SCH (09:35)
[2021-09-09] MEDS: Aspirin 325 MG TABLET PO SCH (09:35)
[2021-09-09] MEDS: Furosemide 40 MG TABLET PO SCH (09:35)
[2021-09-09] MEDS: Azithromycin 500 MG in 0.9 % Sodium Chloride 250 ML IVPB SCH (16:52)
[2021-09-09] MEDS: Gabapentin 100 MG CAPSULE PO SCH (20:05)
[2021-09-09] MEDS: Acetaminophen 325 MG TABLET PO PRN (23:54)
[2021-09-10 00:28] LABS: Basophils % 0.1 %; Hematocrit 34.2 % (35.3-44.9); Hemoglobin 10.7 g/dL (11.5-15.4); Hemoglobin 10.8 g/dL (11.5-15.4); Immature Granulocytes % 0.6 % (0-4); Lymphocytes # 0.6 K/mcL (0.6-4.6); Lymphocytes % 5.5 %; Mean Corpuscular HGB Conc 31.8 g/dL (31.6-35.5); Mean Corpuscular Hemoglobin 32.3 pg (28.0-33.3); Mean Corpuscular Volume 101.8 fL (83.0-100.0); Mean Platelet Volume 11.2 fL (9.4-12.4); Monocytes # 0.3 K/mcL (0.0-1.3); Monocytes % 3.3 %; Neutrophils # 9.2 K/mcL (1.6-8.9); Platelet Count 163 K/mcL (140-400); Red Blood Count 3.34 M/mcL (3.82-4.97); Segmented Neutrophils % 90.5 %; White Blood Count 10.2 K/mcL (4.3-11.1)
[2021-09-10] MEDS: Ipratropium/Albuterol Neb 3 ML IH SCH ×6 (00:34→20:53)
[2021-09-10 00:43] LABS: INR 0.9
[2021-09-10 00:48] LABS: Calcium 9.1 mg/dL (8.6-10.3); Potassium 4.7 mEq/L (3.5-5.1)
[2021-09-10] MEDS: MethylPREDNISolone 40 MG/ML VIAL IVP SCH ×3 (05:06→17:50)
[2021-09-10] MEDS: Furosemide 40 MG TABLET PO SCH (09:56)
[2021-09-10] MEDS: cefTRIAXone 2,000 MG in 0.9 % Sodium Chloride Mini Bag 100 ML IVPB SCH (09:56)
[2021-09-10] MEDS: Aspirin 325 MG TABLET PO SCH (09:56)
[2021-09-10] MEDS: Azithromycin 250 MG TABLET PO SCH (17:50)
[2021-09-10 19:57] LABS: Bacteria,Urine Few per hpf (None-Few); Bilirubin,Urine Negative (Negative); Blood,Urine Large (Negative); Clarity,Urine Clear (Clear); Color,Urine Light-Yellow (Yellow); Glucose,Urine (UA) 100 mg/dL (Normal); Ketones,Urine Negative (Negative); Leukocyte Esterase,Urine Negative (Negative); Mucus,Urine Few per lpf (None-Few); Nitrite,Urine Negative (Negative); PH,Urine 5.5 pH Units (5.0-8.0); Protein,Urine Trace mg/dL (Neg-Trace); RBC,Urine TNTC per hpf (0-3); Specific Gravity,Urine 1.019 (1.010-1.025); Urobilinogen,Urine Normal (Normal); WBC,Urine 30-50 per hpf (0-3)
[2021-09-10] MEDS: Gabapentin 100 MG CAPSULE PO SCH (20:51)
[2021-09-10] MEDS: Acetaminophen 325 MG TABLET PO PRN (20:56)
[2021-09-11] MEDS: Ipratropium/Albuterol Neb 3 ML IH SCH ×6 (00:02→20:39)
[2021-09-11] MEDS: MethylPREDNISolone 40 MG/ML VIAL IVP SCH ×3 (00:41→12:09)
[2021-09-11 00:50] LABS: Basophils % 0.1 %; Hematocrit 33.2 % (35.3-44.9); Hemoglobin 10.3 g/dL (11.5-15.4); Immature Granulocytes % 0.9 % (0-4); Lymphocytes # 0.6 K/mcL (0.6-4.6); Lymphocytes % 5.9 %; Mean Corpuscular Hemoglobin 31.7 pg (28.0-33.3); Mean Corpuscular Volume 102.2 fL (83.0-100.0); Mean Platelet Volume 11.3 fL (9.4-12.4); Monocytes # 0.5 K/mcL (0.0-1.3); Monocytes % 5.2 %; Neutrophils # 8.6 K/mcL (1.6-8.9); Platelet Count 157 K/mcL (140-400); Red Blood Count 3.25 M/mcL (3.82-4.97); Red Cell Distribution Width 13.7 % (11.5-14.5); Segmented Neutrophils % 87.9 %; White Blood Count 9.7 K/mcL (4.3-11.1)
[2021-09-11 01:12] LABS: Calcium 8.6 mg/dL (8.6-10.3); Potassium 4.5 mEq/L (3.5-5.1)
[2021-09-11] MEDS: Aspirin Enteric Coated 81 MG Tablet PO SCH (08:14)
[2021-09-11] MEDS: Furosemide 40 MG TABLET PO SCH (08:14)
[2021-09-11] MEDS: cefTRIAXone 2,000 MG in 0.9 % Sodium Chloride Mini Bag 100 ML IVPB SCH (08:14)
[2021-09-11] MEDS: Azithromycin 250 MG TABLET PO SCH (17:26)
[2021-09-11] MEDS: predniSONE 20 MG TABLET PO SCH (17:26)
[2021-09-11] MEDS: Gabapentin 100 MG CAPSULE PO SCH (20:16)
[2021-09-11] MEDS: Acetaminophen 325 MG TABLET PO PRN (23:16)
[2021-09-12] MEDS: Ipratropium/Albuterol Neb 3 ML IH SCH ×4 (00:13→11:35)
[2021-09-12 04:39] LABS: Basophils % 0.2 %; Hematocrit 35.4 % (35.3-44.9); Hemoglobin 10.9 g/dL (11.5-15.4); Immature Granulocytes % 1.4 % (0-4); Lymphocytes # 0.5 K/mcL (0.6-4.6); Lymphocytes % 5.7 %; Mean Corpuscular HGB Conc 30.8 g/dL (31.6-35.5); Mean Corpuscular Hemoglobin 32.2 pg (28.0-33.3); Mean Corpuscular Volume 104.7 fL (83.0-100.0); Mean Platelet Volume 11.4 fL (9.4-12.4); Monocytes # 0.6 K/mcL (0.0-1.3); Monocytes % 7.3 %; Neutrophils # 7.4 K/mcL (1.6-8.9); Nucleated Red Blood Cells 0.2 /100 WBC (0); Platelet Count 145 K/mcL (140-400); Red Blood Count 3.38 M/mcL (3.82-4.97); Red Cell Distribution Width 13.6 % (11.5-14.5); Segmented Neutrophils % 85.4 %; White Blood Count 8.6 K/mcL (4.3-11.1)
[2021-09-12 04:59] LABS: Calcium 8.5 mg/dL (8.6-10.3)
[2021-09-12 07:15] VITALS: BP 138/96; PULSE 98; TEMP 97.4
[2021-09-12 07:40] VITALS: O2SAT 91
[2021-09-12] MEDS: predniSONE 20 MG TABLET PO SCH (08:52)
[2021-09-12] MEDS: Aspirin Enteric Coated 81 MG Tablet PO SCH (08:52)
[2021-09-12] MEDS: cefTRIAXone 2,000 MG in 0.9 % Sodium Chloride Mini Bag 100 ML IVPB SCH (08:53)
[2021-09-12] MEDS: Furosemide 40 MG TABLET PO SCH (08:53)
== END 2021-09-12 14:58 | disposition home or self-care (01) | DRG 193 ==
LOC: EMEROOARM 13:24 → 2NENU 16:39
PROVIDERS: ADMIT Internal Medicine; ATTEND Internal Medicine

== ENCOUNTER 2021-10-24 17:40 | Observation (INO) ==
[2021-10-24 18:25] LABS: Basophils # 0.1 K/mcL (0.0-0.2); Basophils % 0.3 %; Eosinophils # 0.1 K/mcL (0.0-0.6); Eosinophils % 0.4 %; Hematocrit 35.5 % (35.3-44.9); Hemoglobin 10.5 g/dL (11.5-15.4); Lymphocytes # 1.5 K/mcL (0.6-4.6); Lymphocytes % 7.8 %; Mean Corpuscular HGB Conc 29.6 g/dL (31.6-35.5); Mean Corpuscular Hemoglobin 31.5 pg (28.0-33.3); Mean Corpuscular Volume 106.6 fL (83.0-100.0); Monocytes # 1.3 K/mcL (0.0-1.3); Monocytes % 6.6 %; Neutrophils # 16.3 K/mcL (1.6-8.9); Platelet Count 203 K/mcL (140-400); Red Blood Count 3.33 M/mcL (3.82-4.97); Red Cell Distribution Width 15.9 % (11.5-14.5); Segmented Neutrophils % 82.9 %; White Blood Count 19.6 K/mcL (4.3-11.1)
[2021-10-24 18:30] LABS: VBG HCO3 40 mEq/L (21-27); VBG PCO2 82 mmHg (41-51); VBG PO2 52 mmHg (25-50)
[2021-10-24 18:58] LABS: Calcium 9.2 mg/dL (8.6-10.3); Potassium 4.4 mEq/L (3.5-5.1); Troponin I 0.03 ng/mL (< 0.04)
[2021-10-24 19:06] LABS: Influenza A PCR Negative (Negative); Influenza B PCR Negative (Negative); Resp. Syncytial Virus PCR Negative (Negative)
[2021-10-24 19:07] LABS: SARS-CoV-2 by PCR (In House) Negative (Negative)
[2021-10-24] MEDS ORDERED: Ringers Solution, Lactated 3,000 ML IVC ONE (20:32)
[2021-10-24] MEDS ORDERED: Ringers Solution, Lactated 1,000 ML IVC ONE (20:33)
[2021-10-24 20:58] LABS: Bilirubin,Urine Negative (Negative); Blood,Urine Small (Negative); Clarity,Urine Clear (Clear); Color,Urine Light-Yellow (Yellow); Glucose,Urine (UA) Normal (Normal); Ketones,Urine Negative (Negative); Specific Gravity,Urine 1.015 (1.010-1.025)
[2021-10-24 20:59] LABS: Bacteria,Urine Few per hpf (None-Few); Hyaline Casts,Urine Few per lpf (None Seen); Leukocyte Esterase,Urine Negative (Negative); Mucus,Urine Few per lpf (None-Few); Nitrite,Urine Negative (Negative); Protein,Urine Trace mg/dL (Neg-Trace); Squamous Epithelial Cell,Urine Few per hpf (None-Few); Urobilinogen,Urine Normal (Normal)
[2021-10-24] MEDS ORDERED: Ipratropium/Albuterol Neb 3 ML IH ONE (22:34)
[2021-10-24] MEDS ORDERED: Cefepime HCl 2,000 MG in 0.9 % Sodium Chloride Mini Bag 100 ML IVPB ONE (22:37)
[2021-10-24] MEDS ORDERED: Ondansetron 4 MG/2 ML VIAL IVP PRN (23:08)
[2021-10-24] MEDS ORDERED: Naloxone 0.4 MG/ML INJ IVP PRN (23:08)
[2021-10-24] MEDS ORDERED: Ipratropium/Albuterol Neb 3 ML IH PRN (23:13)
[2021-10-25] MEDS: Ringers Solution, Lactated 1,000 ML IVC SCH ×2 (00:33→13:05)
[2021-10-25] MEDS ORDERED: Perflutren Lipid Microsphere 1.3 ML in 0.9 % Sodium Chloride 8.7 ML IVP PRN (00:48)
[2021-10-25 01:36] LABS: Basophils # 0.1 K/mcL (0.0-0.2); Basophils % 0.3 %; Eosinophils # 0.1 K/mcL (0.0-0.6); Eosinophils % 0.4 %; Hemoglobin 10.2 g/dL (11.5-15.4); Immature Granulocytes % 2.1 % (0-4); Lymphocytes # 1.7 K/mcL (0.6-4.6); Lymphocytes % 9.7 %; Mean Corpuscular HGB Conc 29.1 g/dL (31.6-35.5); Mean Corpuscular Hemoglobin 31.1 pg (28.0-33.3); Mean Corpuscular Volume 106.7 fL (83.0-100.0); Mean Platelet Volume 10.4 fL (9.4-12.4); Monocytes # 1.2 K/mcL (0.0-1.3); Monocytes % 6.8 %; Neutrophils # 13.9 K/mcL (1.6-8.9); Platelet Count 200 K/mcL (140-400); Red Blood Count 3.28 M/mcL (3.82-4.97); Red Cell Distribution Width 15.6 % (11.5-14.5); Segmented Neutrophils % 80.7 %; White Blood Count 17.2 K/mcL (4.3-11.1)
[2021-10-25 01:48] LABS: Albumin 3.1 g/dL (3.5-5.7); Albumin/Globulin Ratio 1.3 (1.1-2.2); Bilirubin,Direct 0.1 mg/dL (0.0-0.2); Bilirubin,Indirect 0.4 mg/dL (0.0-1.0); Bilirubin,Total 0.5 mg/dL (0.3-1.0); Calcium 8.9 mg/dL (8.6-10.3); Globulin 2.3 g/dL (2.4-3.5); Magnesium 2.1 mg/dL (1.6-2.6); Phosphorous 3.9 mg/dL (2.7-4.5); Potassium 4.9 mEq/L (3.5-5.1); Total Protein 5.4 g/dL (6.4-8.9)
[2021-10-25] MEDS: Acetaminophen 325 MG TABLET PO PRN ×2 (03:33→17:29)
[2021-10-25] MEDS: Aspirin 325 MG TABLET PO SCH (07:57)
[2021-10-25] MEDS: levoFLOXacin 750 MG/150 ML 750 MG/150 ML BAG IVPB SCH (07:58)
[2021-10-25] MEDS: Tiotropium 10 INH DOSE IH SCH (08:09)
[2021-10-25] MEDS: Gabapentin 100 MG CAPSULE PO SCH (20:29)
[2021-10-25] MEDS ORDERED: Cefepime HCl 2,000 MG in 0.9 % Sodium Chloride Mini Bag 100 ML IVPB ONE (21:03)
[2021-10-26 04:57] LABS: Hematocrit 33.1 % (35.3-44.9); Hemoglobin 9.7 g/dL (11.5-15.4); Mean Corpuscular HGB Conc 29.3 g/dL (31.6-35.5); Mean Corpuscular Hemoglobin 30.6 pg (28.0-33.3); Mean Corpuscular Volume 104.4 fL (83.0-100.0); Mean Platelet Volume 10.2 fL (9.4-12.4); Platelet Count 203 K/mcL (140-400); Red Blood Count 3.17 M/mcL (3.82-4.97); Red Cell Distribution Width 14.9 % (11.5-14.5); White Blood Count 9.9 K/mcL (4.3-11.1)
[2021-10-26 05:23] LABS: Potassium 5.3 mEq/L (3.5-5.1)
[2021-10-26] MEDS: Tiotropium 10 INH DOSE IH SCH (08:22)
[2021-10-26] MEDS ORDERED: Ipratropium/Albuterol Neb 3 ML IH SCH (09:00)
[2021-10-26] MEDS: Aspirin 325 MG TABLET PO SCH (10:29)
[2021-10-26] MEDS: Ipratropium/Albuterol Neb 3 ML IH SCH ×2 (16:19→23:09)
[2021-10-26] MEDS: Acetaminophen 325 MG TABLET PO PRN (17:43)
[2021-10-26] MEDS: Gabapentin 100 MG CAPSULE PO SCH (21:10)
[2021-10-27] MEDS: Ipratropium/Albuterol Neb 3 ML IH SCH ×4 (03:38→23:32)
[2021-10-27 04:55] LABS: Hematocrit 30.3 % (35.3-44.9); Hemoglobin 9.2 g/dL (11.5-15.4); Mean Corpuscular HGB Conc 30.4 g/dL (31.6-35.5); Mean Corpuscular Hemoglobin 31.3 pg (28.0-33.3); Mean Corpuscular Volume 103.1 fL (83.0-100.0); Mean Platelet Volume 10.2 fL (9.4-12.4); Platelet Count 217 K/mcL (140-400); Red Blood Count 2.94 M/mcL (3.82-4.97); Red Cell Distribution Width 14.8 % (11.5-14.5); White Blood Count 8.2 K/mcL (4.3-11.1)
[2021-10-27] MEDS: Acetaminophen 325 MG TABLET PO PRN ×4 (05:06→23:16)
[2021-10-27 05:15] LABS: BUN/Creatinine Ratio 17 (6-26); Blood Urea Nitrogen 17 mg/dL (8-23); Calcium 8.9 mg/dL (8.6-10.3); Carbon Dioxide 40 mEq/L (23-29); Chloride 100 mEq/L (98-107); Glucose 96 mg/dL (70-105); Osmolality,Calculated 293 (280-300); Potassium 4.4 mEq/L (3.5-5.1); Sodium 141 mEq/L (136-145); eGFR For African Americans > 60 (> 60); eGFR For Non-African Americans 54 (> 60)
[2021-10-27] MEDS: Tiotropium 10 INH DOSE IH SCH (09:34)
[2021-10-27] MEDS: Aspirin 325 MG TABLET PO SCH (09:54)
[2021-10-27] MEDS: levoFLOXacin 750 MG/150 ML 750 MG/150 ML BAG IVPB SCH (09:56)
[2021-10-27] MEDS: *HR* Heparin 5,000 UNIT/ML VIAL SQ SCH (17:52)
[2021-10-27] MEDS: Gabapentin 100 MG CAPSULE PO SCH (20:59)
[2021-10-28 02:01] LABS: Basophils # 0.1 K/mcL (0.0-0.2); Basophils % 0.7 %; Eosinophils # 0.1 K/mcL (0.0-0.6); Eosinophils % 1.1 %; Hematocrit 30.4 % (35.3-44.9); Hemoglobin 9.3 g/dL (11.5-15.4); Immature Granulocytes % 4.9 % (0-4); Lymphocytes % 23.1 %; Mean Corpuscular HGB Conc 30.6 g/dL (31.6-35.5); Mean Corpuscular Hemoglobin 31.7 pg (28.0-33.3); Mean Corpuscular Volume 103.8 fL (83.0-100.0); Mean Platelet Volume 10.2 fL (9.4-12.4); Monocytes % 11.5 %; Neutrophils # 5.1 K/mcL (1.6-8.9); Platelet Count 217 K/mcL (140-400); Red Blood Count 2.93 M/mcL (3.82-4.97); Red Cell Distribution Width 14.9 % (11.5-14.5); Segmented Neutrophils % 58.7 %; White Blood Count 8.7 K/mcL (4.3-11.1)
[2021-10-28 02:29] LABS: Calcium 9.1 mg/dL (8.6-10.3); Potassium 5.3 mEq/L (3.5-5.1)
[2021-10-28] MEDS: Ipratropium/Albuterol Neb 3 ML IH SCH ×3 (04:28→15:50)
[2021-10-28] MEDS: *HR* Heparin 5,000 UNIT/ML VIAL SQ SCH (05:14)
[2021-10-28] MEDS: Acetaminophen 325 MG TABLET PO PRN (06:17)
[2021-10-28] MEDS: Tiotropium 10 INH DOSE IH SCH (07:29)
[2021-10-28] MEDS: Aspirin 325 MG TABLET PO SCH (10:03)
[2021-10-28 15:27] VITALS: BP 131/58; PULSE 81; TEMP 98.3; O2SAT 94
[2021-10-28] MEDS ORDERED: Furosemide 40 MG TABLET PO SCH (16:33)
[2021-10-29] MEDS ORDERED: levoFLOXacin 750 MG TABLET PO SCH (09:00)
== END 2021-10-28 16:02 | disposition home or self-care (01) ==
LOC: EMEROOARM 17:40 → 3ANU 17:40 → SUATTDRO 22:43 → 3ANU 10-25 00:16
PROVIDERS: ADMIT Internal Medicine; ATTEND Internal Medicine

== ENCOUNTER 2021-11-02 17:24 | Inpatient (IN) ==
[2021-11-02] MEDS ORDERED: Azithromycin 500 MG in D5% in Water 250 ML IVPB ONE (18:22)
[2021-11-02] MEDS ORDERED: cefTRIAXone 1,000 MG in 0.9 % Sodium Chloride Mini Bag 100 ML IVPB STA (18:22)
[2021-11-02 18:33] LABS: Basophils # 0.1 K/mcL (0.0-0.2); Basophils % 0.8 %; Eosinophils # 0.2 K/mcL (0.0-0.6); Eosinophils % 1.7 %; Hematocrit 33.1 % (35.3-44.9); Hemoglobin 9.7 g/dL (11.5-15.4); Immature Granulocytes % 5.5 % (0-4); Lymphocytes # 1.7 K/mcL (0.6-4.6); Lymphocytes % 18.5 %; Mean Corpuscular HGB Conc 29.3 g/dL (31.6-35.5); Mean Corpuscular Hemoglobin 31.7 pg (28.0-33.3); Mean Corpuscular Volume 108.2 fL (83.0-100.0); Mean Platelet Volume 10.2 fL (9.4-12.4); Monocytes # 0.9 K/mcL (0.0-1.3); Monocytes % 10.3 %; Platelet Count 175 K/mcL (140-400); Red Blood Count 3.06 M/mcL (3.82-4.97); Segmented Neutrophils % 63.2 %; White Blood Count 9.1 K/mcL (4.3-11.1)
[2021-11-02 18:39] LABS: Neutrophils # 5.8 K/mcL (1.6-8.9)
[2021-11-02 18:54] LABS: BUN/Creatinine Ratio 12 (6-26); Blood Urea Nitrogen 26 mg/dL (8-23); Calcium 8.7 mg/dL (8.6-10.3); Carbon Dioxide 36 mEq/L (23-29); Chloride 102 mEq/L (98-107); Glucose 89 mg/dL (70-105); Osmolality,Calculated 298 (280-300); Potassium 5.9 mEq/L (3.5-5.1); Sodium 142 mEq/L (136-145); eGFR For African Americans 26 (> 60); eGFR For Non-African Americans 22 (> 60)
[2021-11-02 18:55] LABS: Troponin I < 0.03 ng/mL (< 0.04)
[2021-11-02 18:59] LABS: Platelet Estimate Normal (Normal); Polychromasia 1+ (Not Present)
[2021-11-02] MEDS ORDERED: 0.9 % Sodium Chloride 500 ML IVC ONE ×2 (19:17→20:38)
[2021-11-02] MEDS ORDERED: SODIUM ZIRCONIUM CYCLOSILICATE 5 GM POWD.PACK PO STA (20:15)
[2021-11-02] MEDS ORDERED: Calcium Gluconate 1,000 MG/10 ML VIAL IVP STA (20:15)
[2021-11-02] MEDS ORDERED: Naloxone 0.4 MG/ML INJ IVP PRN (22:02)
[2021-11-02] MEDS ORDERED: Ondansetron 4 MG/2 ML VIAL IVP PRN (22:02)
[2021-11-02] MEDS ORDERED: Melatonin 3 MG TABLET PO PRN (22:02)
[2021-11-02 23:01] LABS: Calcium 8.5 mg/dL (8.6-10.3); Potassium 5.3 mEq/L (3.5-5.1)
[2021-11-02] MEDS: Acetaminophen 325 MG TABLET PO PRN (23:10)
[2021-11-03] MEDS ORDERED: Albuterol 2.5 MG/3 ML NEBULIZER IH PRN (01:24)
[2021-11-03 03:33] LABS: Basophils # 0.1 K/mcL (0.0-0.2); Basophils % 0.7 %; Eosinophils # 0.2 K/mcL (0.0-0.6); Hematocrit 30.2 % (35.3-44.9); Hemoglobin 8.9 g/dL (11.5-15.4); Immature Granulocytes % 4.7 % (0-4); Lymphocytes # 1.8 K/mcL (0.6-4.6); Lymphocytes % 22.1 %; Mean Corpuscular HGB Conc 29.5 g/dL (31.6-35.5); Mean Corpuscular Hemoglobin 31.6 pg (28.0-33.3); Mean Corpuscular Volume 107.1 fL (83.0-100.0); Mean Platelet Volume 10.5 fL (9.4-12.4); Monocytes # 0.8 K/mcL (0.0-1.3); Monocytes % 9.7 %; Neutrophils # 4.9 K/mcL (1.6-8.9); Platelet Count 166 K/mcL (140-400); Red Blood Count 2.82 M/mcL (3.82-4.97); Red Cell Distribution Width 15.8 % (11.5-14.5); Segmented Neutrophils % 60.8 %; White Blood Count 8.1 K/mcL (4.3-11.1)
[2021-11-03 03:53] LABS: Albumin 2.8 g/dL (3.5-5.7); Albumin/Globulin Ratio 1.3 (1.1-2.2); Bilirubin,Total 0.2 mg/dL (0.3-1.0); Calcium 8.4 mg/dL (8.6-10.3); Globulin 2.2 g/dL (2.4-3.5); Phosphorous 4.2 mg/dL (2.7-4.5); Potassium 5.3 mEq/L (3.5-5.1)
[2021-11-03] MEDS: Ipratropium/Albuterol Neb 3 ML IH SCH ×4 (03:55→20:26)
[2021-11-03] MEDS ORDERED: Albuterol 2.5 MG/3 ML NEBULIZER IH ONE (04:49)
[2021-11-03] MEDS ORDERED: Dextrose 4 GM Chewable Tablets PO PRN ×2 (04:50)
[2021-11-03] MEDS ORDERED: *HR* Dextrose 50 % in Water (Syg) 50 ML SYRINGE IVP PRN (04:50)
[2021-11-03] MEDS ORDERED: D5% in Water 1,000 ML IVC PRN (04:50)
[2021-11-03] MEDS ORDERED: Insulin Human Regular 5 UNIT in 0.9 % Sodium Chloride 10 ML IV ONE (04:50)
[2021-11-03] MEDS ORDERED: 0.9 % Sodium Chloride 500 ML IVC ONE (04:55)
[2021-11-03] MEDS: *HR* Heparin 5,000 UNIT/ML VIAL SQ SCH ×2 (05:18→18:07)
[2021-11-03 07:21] LABS: Calcium 8.2 mg/dL (8.6-10.3); Potassium 5.1 mEq/L (3.5-5.1)
[2021-11-03] MEDS: predniSONE 20 MG TABLET PO SCH (08:20)
[2021-11-03] MEDS: Acetaminophen 325 MG TABLET PO PRN ×2 (08:35→19:56)
[2021-11-03] MEDS: Furosemide 40 MG/4 ML VIAL IVP SCH (12:19)
[2021-11-03] MEDS: Albumin 25% 25gram/100mL 25 GM/100 ML IV.SOLN IVPB SCH ×2 (18:06→23:59)
[2021-11-03] MEDS: cefTRIAXone 1,000 MG in 0.9 % Sodium Chloride 10 ML IVP SCH (18:07)
[2021-11-03] MEDS: Azithromycin 500 MG in D5% in Water 250 ML IVPB SCH (18:08)
[2021-11-03 18:41] LABS: Sodium, Urine 74.3 mEq/L
[2021-11-03 19:05] LABS: Bilirubin,Urine Negative (Negative); Blood,Urine Negative (Negative); Clarity,Urine Clear (Clear); Color,Urine Light-Yellow (Yellow); Glucose,Urine (UA) Normal (Normal); Ketones,Urine Negative (Negative); Leukocyte Esterase,Urine Small (Negative); Nitrite,Urine Negative (Negative); PH,Urine 5.5 pH Units (5.0-8.0); Protein,Urine Negative (Neg-Trace); RBC,Urine 0-3 per hpf (0-3); Specific Gravity,Urine 1.015 (1.010-1.025); Squamous Epithelial Cell,Urine Few per hpf (None-Few); Urobilinogen,Urine Normal (Normal)
[2021-11-04 03:03] LABS: Basophils % 0.4 %; Hematocrit 25.6 % (35.3-44.9); Hemoglobin 7.8 g/dL (11.5-15.4); Immature Granulocytes % 3.3 % (0-4); Lymphocytes # 2.1 K/mcL (0.6-4.6); Mean Corpuscular HGB Conc 30.5 g/dL (31.6-35.5); Mean Corpuscular Hemoglobin 31.2 pg (28.0-33.3); Mean Corpuscular Volume 102.4 fL (83.0-100.0); Mean Platelet Volume 10.5 fL (9.4-12.4); Monocytes # 0.6 K/mcL (0.0-1.3); Monocytes % 7.7 %; Neutrophils # 4.7 K/mcL (1.6-8.9); Platelet Count 161 K/mcL (140-400); Red Cell Distribution Width 15.1 % (11.5-14.5); Segmented Neutrophils % 61.6 %; White Blood Count 7.6 K/mcL (4.3-11.1)
[2021-11-04 03:25] LABS: Calcium 8.6 mg/dL (8.6-10.3); Potassium 5.2 mEq/L (3.5-5.1)
[2021-11-04] MEDS: Ipratropium/Albuterol Neb 3 ML IH SCH ×3 (04:10→15:34)
[2021-11-04] MEDS: *HR* Heparin 5,000 UNIT/ML VIAL SQ SCH ×2 (05:46→18:12)
[2021-11-04] MEDS: Albumin 25% 25gram/100mL 25 GM/100 ML IV.SOLN IVPB SCH ×3 (08:41→23:53)
[2021-11-04] MEDS: predniSONE 20 MG TABLET PO SCH (08:42)
[2021-11-04] MEDS: Furosemide 40 MG/4 ML VIAL IVP SCH (08:42)
[2021-11-04] MEDS: Acetaminophen 325 MG TABLET PO PRN ×3 (08:42→20:56)
[2021-11-04] MEDS: cefTRIAXone 1,000 MG in 0.9 % Sodium Chloride 10 ML IVP SCH (18:12)
[2021-11-04] MEDS: Azithromycin 500 MG in D5% in Water 250 ML IVPB SCH (18:22)
[2021-11-05] MEDS: Ipratropium/Albuterol Neb 3 ML IH SCH ×6 (00:31→23:42)
[2021-11-05] MEDS: Acetaminophen 325 MG TABLET PO PRN ×3 (02:13→16:48)
[2021-11-05] MEDS: *HR* Heparin 5,000 UNIT/ML VIAL SQ SCH ×2 (05:17→17:49)
[2021-11-05 06:35] LABS: Basophils % 0.4 %; Eosinophils % 0.1 %; Hematocrit 26.4 % (35.3-44.9); Hemoglobin 8.1 g/dL (11.5-15.4); Immature Granulocytes % 1.2 % (0-4); Lymphocytes # 1.6 K/mcL (0.6-4.6); Lymphocytes % 22.4 %; Mean Corpuscular HGB Conc 30.7 g/dL (31.6-35.5); Mean Corpuscular Hemoglobin 30.9 pg (28.0-33.3); Mean Corpuscular Volume 100.8 fL (83.0-100.0); Mean Platelet Volume 10.4 fL (9.4-12.4); Monocytes # 0.6 K/mcL (0.0-1.3); Monocytes % 8.2 %; Platelet Count 174 K/mcL (140-400); Red Blood Count 2.62 M/mcL (3.82-4.97); Red Cell Distribution Width 14.9 % (11.5-14.5); Segmented Neutrophils % 67.7 %; White Blood Count 7.3 K/mcL (4.3-11.1)
[2021-11-05] MEDS: Aspirin 325 MG TABLET PO SCH (08:14)
[2021-11-05] MEDS: predniSONE 20 MG TABLET PO SCH (08:14)
[2021-11-05] MEDS: Albumin 25% 25gram/100mL 25 GM/100 ML IV.SOLN IVPB SCH (08:15)
[2021-11-05 08:23] LABS: % Iron Saturation 19 % (15-50); Iron 41 mcg/dL (50-170); Transferrin 154 mg/dL (203-362)
[2021-11-05 08:37] LABS: Calcium 9.2 mg/dL (8.6-10.3); Potassium 4.8 mEq/L (3.5-5.1)
[2021-11-05] MEDS: Furosemide 40 MG/4 ML VIAL IVP SCH (11:48)
[2021-11-05] MEDS: Azithromycin 500 MG in D5% in Water 250 ML IVPB SCH (17:53)
[2021-11-05] MEDS: cefTRIAXone 1,000 MG in 0.9 % Sodium Chloride 10 ML IVP SCH (17:54)
[2021-11-05] MEDS ORDERED: Benzonatate 100 MG CAPSULE PO PRN (19:52)
[2021-11-06] MEDS: Ipratropium/Albuterol Neb 3 ML IH SCH ×4 (03:48→23:33)
[2021-11-06] MEDS: *HR* Heparin 5,000 UNIT/ML VIAL SQ SCH ×2 (05:48→17:28)
[2021-11-06 06:03] LABS: Basophils % 0.4 %; Eosinophils % 0.1 %; Hematocrit 28.3 % (35.3-44.9); Hemoglobin 8.6 g/dL (11.5-15.4); Immature Granulocytes % 1.7 % (0-4); Lymphocytes # 1.7 K/mcL (0.6-4.6); Lymphocytes % 21.3 %; Mean Corpuscular HGB Conc 30.4 g/dL (31.6-35.5); Mean Corpuscular Hemoglobin 30.5 pg (28.0-33.3); Mean Corpuscular Volume 100.4 fL (83.0-100.0); Mean Platelet Volume 10.4 fL (9.4-12.4); Monocytes # 0.8 K/mcL (0.0-1.3); Monocytes % 10.2 %; Neutrophils # 5.4 K/mcL (1.6-8.9); Nucleated Red Blood Cells 0.5 /100 WBC (0); Platelet Count 192 K/mcL (140-400); Red Blood Count 2.82 M/mcL (3.82-4.97); Red Cell Distribution Width 14.7 % (11.5-14.5); Segmented Neutrophils % 66.3 %; White Blood Count 8.1 K/mcL (4.3-11.1)
[2021-11-06 06:12] LABS: Calcium 9.5 mg/dL (8.6-10.3); Magnesium 2.1 mg/dL (1.6-2.6); Phosphorous 3.6 mg/dL (2.7-4.5); Potassium 4.8 mEq/L (3.5-5.1)
[2021-11-06] MEDS: Furosemide 40 MG/4 ML VIAL IVP SCH (09:06)
[2021-11-06] MEDS: Aspirin 325 MG TABLET PO SCH (09:07)
[2021-11-06] MEDS: predniSONE 20 MG TABLET PO SCH (09:07)
[2021-11-06] MEDS: Azithromycin 500 MG in D5% in Water 250 ML IVPB SCH (17:28)
[2021-11-06] MEDS: Acetaminophen 325 MG TABLET PO PRN (17:28)
[2021-11-06] MEDS: cefTRIAXone 1,000 MG in 0.9 % Sodium Chloride 10 ML IVP SCH (17:35)
[2021-11-06] MEDS ORDERED: Gabapentin 100 MG CAPSULE PO SCH (21:00)
[2021-11-07] MEDS: Ipratropium/Albuterol Neb 3 ML IH SCH ×2 (04:02→11:28)
[2021-11-07] MEDS: *HR* Heparin 5,000 UNIT/ML VIAL SQ SCH (05:34)
[2021-11-07 08:20] LABS: Basophils % 0.5 %; Eosinophils % 0.2 %; Hematocrit 29.8 % (35.3-44.9); Hemoglobin 9.3 g/dL (11.5-15.4); Immature Granulocytes % 1.9 % (0-4); Lymphocytes # 1.9 K/mcL (0.6-4.6); Lymphocytes % 22.6 %; Mean Corpuscular HGB Conc 31.2 g/dL (31.6-35.5); Mean Corpuscular Hemoglobin 31.1 pg (28.0-33.3); Mean Corpuscular Volume 99.7 fL (83.0-100.0); Mean Platelet Volume 10.2 fL (9.4-12.4); Monocytes % 11.4 %; Neutrophils # 5.4 K/mcL (1.6-8.9); Nucleated Red Blood Cells 0.2 /100 WBC (0); Platelet Count 203 K/mcL (140-400); Red Blood Count 2.99 M/mcL (3.82-4.97); Red Cell Distribution Width 14.8 % (11.5-14.5); Segmented Neutrophils % 63.4 %; White Blood Count 8.5 K/mcL (4.3-11.1)
[2021-11-07 08:27] LABS: Calcium 9.8 mg/dL (8.6-10.3); Magnesium 2.1 mg/dL (1.6-2.6); Phosphorous 3.8 mg/dL (2.7-4.5); Potassium 5.2 mEq/L (3.5-5.1)
[2021-11-07] MEDS: Aspirin 325 MG TABLET PO SCH (08:44)
[2021-11-07] MEDS: predniSONE 20 MG TABLET PO SCH (08:45)
[2021-11-07] MEDS ORDERED: Gabapentin 100 MG CAPSULE PO ONE (08:47)
[2021-11-07] MEDS ORDERED: Furosemide 40 MG TABLET PO SCH (09:00)
[2021-11-07 10:57] VITALS: BP 127/66; PULSE 83; TEMP 97.6
[2021-11-07 11:43] VITALS: O2SAT 86
== END 2021-11-07 15:15 | disposition home health service (06) | DRG 291 ==
LOC: EMEROOARM 17:24 → 3NENU 17:24 → SUATTDRO 20:21 → 3NENU 21:43 → SUATTDRO 11-04 15:20
PROVIDERS: ADMIT Family Medicine; ATTEND Internal Medicine